=== PATIENT | female | born 1985 | race Caucasian/White ===

== ENCOUNTER 2020-02-13 13:04 | Day surgery (SDC) | payer BC, OTHER ==
[2020-02-13] MEDS ORDERED: diphenhydrAMINE 50 MG/ML SDV IVPUSH ONE (14:12)
[2020-02-13] MEDS ORDERED: fentaNYL 100 MCG/2 ML SDV IVPUSH ONE (14:12)
[2020-02-13] MEDS ORDERED: Ondansetron 4 MG/2 ML SDV IVPUSH ONE (14:13)
[2020-02-13] MEDS ORDERED: Dextrose 5%-0.9% NaCl 1,000 ML IV SCH (14:15)
--- NOTE | 2020-02-13 14:18 | EDM.PDOC ---
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 Patient has a complex past history. Patient weighed 318 pounds and underwent a gastric sleeve procedure 8 to 9 years ago. This was complicated by slippage of the sleeve producing intractable nausea and vomiting. 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 Subsequently those tumors were resected. With weight loss she required multiple surgeries to remove excess skin and tissue from her mid back end of abdominal plasty. She reports she is never been . She underwent tubal ligation at age 27 due to all the problems she was having with her pancreas. She underwent endometrial ablation 5 years ago. Things were fine up until 3 months ago when she developed sudden onset of severe lower abdominal pain similar to what she is experiencing today with a large gush and prolific bleeding for 2 hours and then it quit. She did not see a provider at that time. Yesterday she started to develop diffuse lower abdominal cramping pain with very minimal bleeding per vagina. She states that today the bleeding is bright red in color and still spotting. No shaded nausea without vomiting. Unable to eat. She is rocking back and forth on the bed due to the severity of the pain. She appreciates that there is a sense of urinary urgency without any dysuria and no relief of the pelvic pain with voiding or defecation. She is noticed no blood in her stool. Patient carries a diagnosis of chronic pancreatitis. She denies any recent alcohol use. Onset: Sudden Onset Date: 02/12/20 Onset Time: 09:00 (Symptoms started acutely yesterday morning with mild spotting per vagina but increased lower abdominal pain starting last night and persisting all night long.) Duration: Hour(s):, Constant, Getting Worse, Other (On colicky component to the pain.) Location: Reports: Abdomen (Suprapubic) Quality: Reports: Ache, Sharp, Stabbing, Other (Constant deep aching pain associated with) Severity: Severe (cramping pain similar to severe menstrual cramps. 10 of the 10) Improves with: Reports: None Worsens with: Reports: None Context: Reports: Other (Spontaneous occurrence). Denies: Activity, Exercise, Lifting, Sick Contact, Trauma Associated Symptoms: Reports: Loss of Appetite, Nausea/Vomiting. Denies: Confusion, Chest Pain, Rash, Seizure (Nausea without vomiting), Shortness of Breath, Syncope Treatments MAINTENANCE [employer]: Reports: NSAIDS (Ultram with no relief of pain.) Lower Abdomen Pain Score (Numeric/FACES): 10 - Related Data Allergies Allergy/AdvReac Type Severity Reaction Status Date / Time hydromorphone [From Dilaudid] Allergy Swelling Verified 02/13/20 13:16 Home Meds: Home Meds . [No Known Home Meds] 01/13/20 [History] Past Medical History HEENT History: Reports: None Other HEENT History: wears glasses Cardiovascular History: Reports: None Respiratory History: Reports: None Gastrointestinal History: Reports: None, Pancreatitis Other Gastrointestinal History: chronic pancreatitis--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: Endometrial Ablation : 0 Musculoskeletal History: Reports: None Neurological History: Reports: None Psychiatric History: Reports: None Endocrine/Metabolic History: Reports: None Hematologic History: Reports: None Immunologic History: Reports: None Oncologic (Cancer) History: Reports: None Dermatologic History: Reports: None - Infectious Disease History Infectious Disease History: Reports: Hepatitis A Other Infectious Disease History: Hx of Hep A, not currently positive - Past Surgical History Head Surgeries/Procedures: Reports: None HEENT Surgical History: Reports: Other (See Below) Other HEENT Surgeries/Procedures: tooth removed Cardiovascular Surgical History: Reports: None Respiratory Surgical History: Reports: None GI Surgical History: Reports: Appendectomy, Bariatric Procedure (Sleeve procedure with complications as the sleeve slipped upwards causing intractable nausea and vomiting requiring further surgery), Cholecystectomy Female Surgical History: Reports: Endometrial Ablation (Uncontrolled menorrhagia. Done 5 years ago 2014. It was done due to), Tubal Ligation (At age 27.) Endocrine Surgical History: Reports: None Neurological Surgical History: Reports: None Musculoskeletal Surgical History: Reports: None Oncologic Surgical History: Reports: None Dermatological Surgical History: Reports: None Other Dermatological Surgeries/Procedures: Patient has had multiple plastic surgeries i.e. abdominal plasty after significant weight loss and she has had resection of soft tissue and skin from upper mid back bilaterally. Social & Family History - Family History Family Medical History: No Pertinent Family History - Tobacco Use Tobacco Use Status *Q: Never Tobacco User Second Hand Smoke Exposure: No - Caffeine Use Caffeine Use: Reports: None - Alcohol Use Alcohol Use History: No - Recreational Drug Use Recreational Drug Use: No - Living Situation & Occupation Living situation: Reports: Occupation: Employed Social History Comment: Recently relocated to [place] a few days ago from [place]. ED ROS GENERAL - Review of Systems Review Of Systems: See Below Constitutional: Reports: Malaise, Weakness, Fatigue, Decreased Appetite. Denies: Fever, Chills HEENT: Reports: No Symptoms Respiratory: Reports: No Symptoms Cardiovascular: Reports: No Symptoms Endocrine: Reports: Fatigue GI/Abdominal: Reports: Abdominal Pain (See history of present illness), Constipation (Case and problems with constipation), Decreased Appetite, Nausea. Denies: Hematemesis, Hematochezia, Stool Incontinence, Vomiting : Reports: Frequency, Incontinence (Lost control of her bladder yesterday.), Urgency. Denies: Dysuria Musculoskeletal: Reports: No Symptoms Skin: Reports: No Symptoms Neurological: Reports: No Symptoms Psychiatric: Reports: No Symptoms Hematologic/Lymphatic: Reports: No Symptoms Immunologic: Reports: No Symptoms ED EXAM, GI/ABD - Physical Exam Exam: See Below Exam Limited By: No Limitations General Appearance: Alert, WD/WN, Moderate Distress, Other (Patient is rocking back and forth on the bed due to the severity of the pain. Temperature is 36.2 with a heart rate of 95 and sinus respiratory is 18. With O2 sats of 99% room air. BP is 131/84.) Eyes: Bilateral: Normal Appearance (No scleral icterus or blepharal pallor.) Throat/Mouth: Other Head: Atraumatic (Tongue is mildly dry.), Normocephalic Neck: Normal Inspection, Supple, Non-Tender, Full Range of Motion. No: Lymphadenopathy (L), Lymphadenopathy (R) Respiratory/Chest: No Respiratory Distress, Lungs Clear, Normal Breath Sounds, No Accessory Muscle Use Cardiovascular: Normal Peripheral Pulses, Regular Rate, Rhythm, No Edema, No Murmur, No Rub GI/Abdominal Exam: Soft, No Organomegaly, Pelvis Stable, Guarding, Rebound (Clinically has an acute abdomen.), Tender (Patient is markedly tender across both lower quadrants and suprapubically of the abdomen.), Abnormal Bowel Sounds (Bowel sounds appreciated.), Other Back Exam: Other (Has midline plastic surgical scars mid back bilaterally for reduction of excess skin and soft tissue post weight loss). No: CVA Tenderness (L), CVA Tenderness (R) Extremities: Normal Inspection, Normal Range of Motion, Non-Tender, No Pedal Edema Neurological: Alert, Oriented, CN II-XII Intact, Normal Cognition Psychiatric: Other Skin Exam: Warm, Dry (And appears to be in a good deal of pain.), Intact, Normal Color, No Rash Course - Vital Signs Last Recorded V/S: Last Vital Signs Temp 36.8 C 02/13/20 19:45 Pulse 62 02/13/20 19:45 Resp 10 L 02/13/20 19:45 BP 105/66 02/13/20 19:45 Pulse Ox 99 02/13/20 19:45 - Orders/Labs/Meds Orders: Active Orders 24 hr Category Date Time Status Patient Status Manage Transfer [TRANSFER] Routine ADT 02/13/20 19:51 Active Patient Status [ADT] Routine ADT 02/13/20 17:22 Active Communication Order [RC] ROUTINE Care 02/13/20 18:24 Active Cooling Warming Measures [RC] ASDIRECTED Care 02/13/20 18:24 Active Notify Provider [RC] ASDIRECTED Care 02/13/20 18:24 Active Oxygen Therapy [RC] ASDIRECTED Care 02/13/20 18:24 Active Pulse Oximetry [RC] ASDIRECTED Care 02/13/20 18:24 Active RT Aerosol Therapy [RC] ASDIRECTED Care 02/13/20 18:25 Active Vital Signs [RC] Q15M Care 02/13/20 18:24 Active Abdomen Pelvis w Cont [CT] Stat Exams 02/13/20 14:16 Taken Transvaginal Non OB [US] Stat Exams 02/13/20 14:14 Taken FREE T3 [REF] Stat Lab 02/13/20 15:00 Received PATIENT RETYPE [BBK] Routine Lab 02/13/20 15:50 Ordered Albuterol [Proventil Neb Soln] Med 02/13/20 18:25 Active 2.5 mg NEB ONETIME PRN Dextrose 5%-0.9% NaCl [Dextrose 5%-Normal Saline] 1,000 Med 02/13/20 14:15 Active ml IV ASDIRECTED HYDROmorphone [Dilaudid] Med 02/13/20 18:25 Active 1 mg IVPUSH ONETIME PRN Lactated Ringers [Ringers, Lactated] 1,000 ml Med 02/13/20 16:45 Active IV ASDIRECTED Metoclopramide [Reglan] Med 02/13/20 19:26 Active 10 mg IV ONETIME PRN Remove Patch Med 02/16/20 18:00 Once 1 ea TRDERM ONETIME ONE ePHEDrine [ePHEDrine sulfate] Med 02/13/20 18:24 Active 5 mg IVPUSH ASDIRECTED PRN fentaNYL [Sublimaze] Med 02/13/20 14:56 Active 50 mcg IVPUSH Q45M PRN fentaNYL [Sublimaze] Med 02/13/20 18:24 Active 50 mcg IVPUSH Q5M PRN Schedule Procedure [COMM] Urgent Oth 02/13/20 17:24 Ordered Medication Orders Albuterol (Proventil Neb Soln) 2.5 mg NEB ONETIME PRN PRN Reason: bronchodilation Ephedrine Sulfate (Ephedrine Sulfate) 5 mg IVPUSH ASDIRECTED PRN PRN Reason: Hypotension Fentanyl (Sublimaze) 50 mcg IVPUSH Q45M PRN PRN Reason: Pain Last Admin: 02/13/20 15:15 Dose: 50 mcg Documented by: MANUEL Fentanyl (Sublimaze) 50 mcg IVPUSH Q5M PRN PRN Reason: Pain Last Admin: 02/13/20 19:52 Dose: 50 mcg Documented by: YISEL Hydromorphone HCl (Dilaudid) 1 mg IVPUSH ONETIME PRN PRN Reason: Pain Dextrose/Sodium Chloride (Dextrose 5%-Normal Saline) 1,000 mls @ 150 mls/hr IV ASDIRECTED MARISABEL Last Admin: 02/13/20 15:01 Dose: 150 mls/hr Documented by: MANUEL Lactated Ringer's (Ringers, Lactated) 1,000 mls @ 150 mls/hr IV ASDIRECTED [facility] Last Admin: 02/13/20 16:56 Dose: 150 mls/hr Documented by: MANUEL Metoclopramide HCl (Reglan) 10 mg IV ONETIME PRN PRN Reason: Nausea/Vomiting Miscellaneous Information (Remove Patch) 1 ea TRDERM ONETIME ONE Stop: 02/16/20 18:01 Labs: Laboratory Tests 02/13/20 02/13/20 02/13/20 Range/Units 15:00 15:00 15:00 WBC 8.25 (3.98-10.04) K/mm3 RBC 5.05 (3.98-5.22) M/mm3 Hgb 13.0 (11.2-15.7) gm/dl Hct 40.6 (34.1-44.9) % MCV 80.4 (79.4-94.8) fl MCH 25.7 (25.6-32.2) pg MCHC 32.0 L (32.2-35.5) g/dl RDW Std Deviation 39.6 (36.4-46.3) fL Plt Count 233 (182-369) K/mm3 MPV 10.4 (9.4-12.3) fl Neut % (Auto) 78.8 H (34.0-71.1) % Lymph % (Auto) 13.7 L (19.3-51.7) % Gilchrist % (Auto) 6.5 (4.7-12.5) % Eos % (Auto) 0.7 (0.7-5.8) Baso % (Auto) 0.1 (0.1-1.2) % Neut # (Auto) 6.49 H (1.56-6.13) K/mm3 Lymph # (Auto) 1.13 L (1.18-3.74) K/mm3 Gilchrist # (Auto) 0.54 H (0.24-0.36) K/mm3 Eos # (Auto) 0.06 (0.04-0.36) K/mm3 Baso # (Auto) 0.01 (0.01-0.08) K/mm3 PT 10.5 (9.7-12.0) SECONDS INR 0.98 APTT 24.9 (21.7-31.4) SECONDS Sodium 141 (136-145) mEq/L Potassium 3.7 (3.5-5.1) mEq/L Chloride 105 (98-107) mEq/L Carbon Dioxide 27 (21-32) mEq/L Anion Gap 12.7 (5-15) BUN 15 (7-18) mg/dL Creatinine 0.9 (0.55-1.02) mg/dL Est Cr Clr Drug Dosing 91.18 mL/min Estimated GFR (MDRD) > 60 (>60) mL/min BUN/Creatinine Ratio 16.7 (14-18) Glucose 92 (74-106) mg/dL Calcium 9.3 (8.5-10.1) mg/dL Total Bilirubin 0.4 (0.2-1.0) mg/dL AST 9 L (15-37) U/L ALT 16 (14-59) U/L Alkaline Phosphatase 93 (46-116) U/L Total Protein 7.8 (6.4-8.2) g/dl Albumin 3.9 (3.4-5.0) g/dl Globulin 3.9 gm/dL Albumin/Globulin Ratio 1.0 (1-2) Lipase 199 (73-393) U/L Free T4 (0.76-1.46) ng/dL TSH 3rd Generation (0.358-3.74) uIU/mL HCG, Qual (NEGATIVE) Urine Color (Yellow) Urine Appearance (Clear) Urine pH (5.0-8.0) Ur Specific [place] (1.005-1.030) Urine Protein (Negative) Urine Glucose (UA) (Negative) Urine Ketones (Negative) Urine Occult Blood (Negative) Urine Nitrite (Negative) Urine Bilirubin (Negative) Urine Urobilinogen (0.2-1.0) Ur Leukocyte Esterase (Negative) Urine RBC (0-5) /hpf Urine WBC (0-5) /hpf Ur Squamous Epith Cells (0-5) /hpf Urine Bacteria (FEW) /hpf Urine Mucus (FEW) /hpf SARS-CoV-2 RNA (PRADIP) (NEGATIVE) Blood Type Gel Antibody Screen 02/13/20 02/13/20 02/13/20 Range/Units 15:00 15:00 15:00 WBC (3.98-10.04) K/mm3 RBC (3.98-5.22) M/mm3 Hgb (11.2-15.7) gm/dl Hct (34.1-44.9) % MCV (79.4-94.8) fl MCH (25.6-32.2) pg MCHC (32.2-35.5) g/dl RDW Std Deviation (36.4-46.3) fL Plt Count (182-369) K/mm3 MPV (9.4-12.3) fl Neut % (Auto) (34.0-71.1) % Lymph % (Auto) (19.3-51.7) % Gilchrist % (Auto) (4.7-12.5) % Eos % (Auto) (0.7-5.8) Baso % (Auto) (0.1-1.2) % Neut # (Auto) (1.56-6.13) K/mm3 Lymph # (Auto) (1.18-3.74) K/mm3 Gilchrist # (Auto) (0.24-0.36) K/mm3 Eos # (Auto) (0.04-0.36) K/mm3 Baso # (Auto) (0.01-0.08) K/mm3 PT (9.7-12.0) SECONDS INR APTT (21.7-31.4) SECONDS Sodium (136-145) mEq/L Potassium (3.5-5.1) mEq/L Chloride (98-107) mEq/L Carbon Dioxide (21-32) mEq/L Anion Gap (5-15) BUN (7-18) mg/dL Creatinine (0.55-1.02) mg/dL Est Cr Clr Drug Dosing mL/min Estimated GFR (MDRD) (>60) mL/min BUN/Creatinine Ratio (14-18) Glucose (74-106) mg/dL Calcium (8.5-10.1) mg/dL Total Bilirubin (0.2-1.0) mg/dL AST (15-37) U/L ALT (14-59) U/L Alkaline Phosphatase (46-116) U/L Total Protein (6.4-8.2) g/dl Albumin (3.4-5.0) g/dl Globulin gm/dL Albumin/Globulin Ratio (1-2) Lipase (73-393) U/L Free T4 (0.76-1.46) ng/dL TSH 3rd Generation 0.338 L (0.358-3.74) uIU/mL HCG, Qual Negative (NEGATIVE) Urine Color (Yellow) Urine Appearance (Clear) Urine pH (5.0-8.0) Ur Specific [place] (1.005-1.030) Urine Protein (Negative) Urine Glucose (UA) (Negative) Urine Ketones (Negative) Urine Occult Blood (Negative) Urine Nitrite (Negative) Urine Bilirubin (Negative) Urine Urobilinogen (0.2-1.0) Ur Leukocyte Esterase (Negative) Urine RBC (0-5) /hpf Urine WBC (0-5) /hpf Ur Squamous Epith Cells (0-5) /hpf Urine Bacteria (FEW) /hpf Urine Mucus (FEW) /hpf SARS-CoV-2 RNA (PRADIP) (NEGATIVE) Blood Type B POSITIVE Gel Antibody Screen Negative 02/13/20 02/13/20 02/13/20 Range/Units 15:00 16:44 16:44 WBC (3.98-10.04) K/mm3 RBC (3.98-5.22) M/mm3 Hgb (11.2-15.7) gm/dl Hct (34.1-44.9) % MCV (79.4-94.8) fl MCH (25.6-32.2) pg MCHC (32.2-35.5) g/dl RDW Std Deviation (36.4-46.3) fL Plt Count (182-369) K/mm3 MPV (9.4-12.3) fl Neut % (Auto) (34.0-71.1) % Lymph % (Auto) (19.3-51.7) % Gilchrist % (Auto) (4.7-12.5) % Eos % (Auto) (0.7-5.8) Baso % (Auto) (0.1-1.2) % Neut # (Auto) (1.56-6.13) K/mm3 Lymph # (Auto) (1.18-3.74) K/mm3 Gilchrist # (Auto) (0.24-0.36) K/mm3 Eos # (Auto) (0.04-0.36) K/mm3 Baso # (Auto) (0.01-0.08) K/mm3 PT (9.7-12.0) SECONDS INR APTT (21.7-31.4) SECONDS Sodium (136-145) mEq/L Potassium (3.5-5.1) mEq/L Chloride (98-107) mEq/L Carbon Dioxide (21-32) mEq/L Anion Gap (5-15) BUN (7-18) mg/dL Creatinine (0.55-1.02) mg/dL Est Cr Clr Drug Dosing mL/min Estimated GFR (MDRD) (>60) mL/min BUN/Creatinine Ratio (14-18) Glucose (74-106) mg/dL Calcium (8.5-10.1) mg/dL Total Bilirubin (0.2-1.0) mg/dL AST (15-37) U/L ALT (14-59) U/L Alkaline Phosphatase (46-116) U/L Total Protein (6.4-8.2) g/dl Albumin (3.4-5.0) g/dl Globulin gm/dL Albumin/Globulin Ratio (1-2) Lipase (73-393) U/L Free T4 1.15 (0.76-1.46) ng/dL TSH 3rd Generation (0.358-3.74) uIU/mL HCG, Qual (NEGATIVE) Urine Color Yellow (Yellow) Urine Appearance Clear (Clear) Urine pH 7.0 (5.0-8.0) Ur Specific [place] 1.015 (1.005-1.030) Urine Protein Negative (Negative) Urine Glucose (UA) Trace H (Negative) Urine Ketones Negative (Negative) Urine Occult Blood Trace-intact H (Negative) Urine Nitrite Negative (Negative) Urine Bilirubin Negative (Negative) Urine Urobilinogen 0.2 (0.2-1.0) Ur Leukocyte Esterase Negative (Negative) Urine RBC 0-5 (0-5) /hpf Urine WBC 0-5 (0-5) /hpf Ur Squamous Epith Cells 0-5 (0-5) /hpf Urine Bacteria Few (FEW) /hpf Urine Mucus Not seen (FEW) /hpf SARS-CoV-2 RNA (PRADIP) Negative (NEGATIVE) Blood Type Gel Antibody Screen Meds: Medications Generic Name Dose Route Start Last Admin Trade Name Freq PRN Reason Stop Dose Admin Albuterol 2.5 mg 02/13/20 18:25 Proventil Neb Soln NEB ONETIME PRN bronchodilation Ephedrine Sulfate 5 mg 02/13/20 18:24 Ephedrine Sulfate IVPUSH ASDIRECTED PRN Hypotension Fentanyl 50 mcg 02/13/20 14:56 02/13/20 15:15 Sublimaze IVPUSH 50 mcg Q45M PRN Administration Pain Fentanyl 50 mcg 02/13/20 18:24 02/13/20 19:52 Sublimaze IVPUSH 50 mcg Q5M PRN Administration Pain Hydromorphone HCl 1 mg 02/13/20 18:25 Dilaudid IVPUSH ONETIME PRN Pain Dextrose/Sodium Chloride 1,000 mls @ 150 mls/hr 02/13/20 14:15 02/13/20 15:01 Dextrose 5%-Normal Saline IV 150 mls/hr ASDIRECTED MARISABEL Administration Lactated Ringer's 1,000 mls @ 150 mls/hr 02/13/20 16:45 02/13/20 16:56 Ringers, Lactated IV 150 mls/hr ASDIRECTED MARISABEL Administration Metoclopramide HCl 10 mg 02/13/20 19:26 Reglan IV ONETIME PRN Nausea/Vomiting Miscellaneous Information 1 ea 02/16/20 18:00 Remove Patch TRDERM 02/16/20 18:01 ONETIME ONE Discontinued Medications Generic Name Dose Route Start Last Admin Trade Name Freq PRN Reason Stop Dose Admin Bupivacaine HCl Confirm 02/13/20 17:16 02/13/20 18:30 Marcaine 0.5% Administered 02/13/20 17:17 6 ml Dose Administration 30 ml .ROUTE .STK-MED ONE Dexamethasone Confirm 02/13/20 17:25 Dexamethasone Administered 02/13/20 17:26 Dose 20 mg .ROUTE .STK-MED ONE Diphenhydramine HCl 25 mg 02/13/20 14:12 02/13/20 15:01 Benadryl IVPUSH 02/13/20 14:13 25 mg ONETIME ONE Administration Diphenhydramine HCl Confirm 02/13/20 17:49 Benadryl Administered 02/13/20 17:50 Dose 50 mg .ROUTE .STK-MED ONE Fentanyl 50 mcg 02/13/20 14:12 02/13/20 15:01 Sublimaze IVPUSH 02/13/20 14:13 50 mcg ONETIME ONE Administration Fentanyl Confirm 02/13/20 17:26 Sublimaze Administered 02/13/20 17:27 Dose 250 mcg .ROUTE .STK-MED ONE Fentanyl Confirm 02/13/20 18:45 Sublimaze Administered 02/13/20 18:46 Dose 100 mcg .ROUTE .STK-MED ONE Glycopyrrolate Confirm 02/13/20 18:42 Robinul Administered 02/13/20 18:43 Dose 0.8 mg .ROUTE .STK-MED ONE Glycopyrrolate Confirm 02/13/20 19:01 Robinul Administered 02/13/20 19:02 Dose 0.4 mg .ROUTE .STK-MED ONE Haloperidol Lactate 1 mg 02/13/20 19:26 Haldol IVPUSH 02/13/20 19:27 ONETIME ONE Hydromorphone HCl 0.5 mg 02/13/20 16:36 02/13/20 16:40 Dilaudid IVPUSH 02/13/20 16:37 0.5 mg ONETIME ONE Administration Hydromorphone HCl Confirm 02/13/20 17:25 Dilaudid Administered 02/13/20 17:26 Dose 0.5 mg .ROUTE .STK-MED ONE Lidocaine HCl Confirm 02/13/20 17:25 Xylocaine-Mpf 1% Administered 02/13/20 17:26 Dose 4 mls @ as directed .ROUTE .STK-MED ONE Lactated Ringer's Confirm 02/13/20 17:25 Ringers, Lactated Administered 02/13/20 17:26 Dose 2,000 mls @ as directed .ROUTE .STK-MED ONE Iopamidol 100 ml 02/13/20 16:26 02/13/20 16:26 Isovue-300 (61%) IVPUSH 02/13/20 16:27 100 ml ONETIME ONE Administration Ketorolac Tromethamine Confirm 02/13/20 17:25 Toradol Administered 02/13/20 17:26 Dose 30 mg .ROUTE .STK-MED ONE Meperidine HCl 25 mg 02/13/20 19:37 02/13/20 19:44 Meperidine IVPUSH 02/13/20 19:38 25 mg ONETIME STA Administration Midazolam HCl Confirm 02/13/20 17:26 Versed 1 Mg/Ml Administered 02/13/20 17:27 Dose 2 mg .ROUTE .STK-MED ONE Miscellaneous Medication 0 mg 12/26/20 18:24 Phenylephrine 1 Mg/10 Ml-Ns IVPUSH 02/13/20 18:25 ONETIME ONE Neostigmine Methylsulfate Confirm 02/13/20 18:42 Neostigmine Methylsulfate Administered 02/13/20 18:43 Dose 5 mg .ROUTE .STK-MED ONE Ondansetron HCl 4 mg 02/13/20 14:13 02/13/20 15:01 Zofran IVPUSH 02/13/20 14:14 4 mg ONETIME ONE Administration Ondansetron HCl Confirm 02/13/20 17:25 Zofran Administered 02/13/20 17:26 Dose 4 mg .ROUTE .STK-MED ONE Propofol Confirm 02/13/20 17:25 Diprivan 20 Ml Administered 02/13/20 17:26 Dose 200 mg .ROUTE .STK-MED ONE Rocuronium [place] Confirm 02/13/20 17:25 Zemuron Administered 02/13/20 17:26 Dose 50 mg .ROUTE .STK-MED ONE Scopolamine 1.5 mg 02/13/20 17:39 02/13/20 17:44 Transderm-Scop TOP 02/13/20 17:40 1.5 mg ONETIME ONE Administration Scopolamine 1.5 mg 02/13/20 17:40 Transderm-Scop TRDERM 02/13/20 17:41 ONETIME ONE Sodium Chloride 10 ml 02/13/20 16:26 02/13/20 16:26 Saline Flush FLUSH 02/13/20 16:27 10 ml ONETIME ONE Administration - Radiology Interpretation Free Text/Narrative:: 34-year-old female presents to the ED with acute lower abdominal pain starting last evening. She states she has had some spotting per vagina yesterday morning upon awakening. Of note the patient has had previous endometrial ablation carried out 5 years ago. 3 months ago she developed acute onset of severe lower abdominal pain similar to what she is experiencing today. She then had a bout of menorrhagia lasting about 2 hours and then it quit. She did not seek [employer] consultation. Today she states the bleeding per vagina is more spotting but bright red in color. There is a feeling or sense of urinary urgency without relief of pain or terminal dysuria. On examination bowel sounds are few and far between. She is extremely tender suprapubically in both lower quadrants suggesting acute abdomen. Patient has a history of chronic pancreatitis. However this pain appears to be gynecological in origin. Plan she will have IV started D5 normal saline at 250 mils per hour. Given fentanyl 50 mcg IV with Zofran 4 mg IV and Benadryl 25 mg IV. She states her face swelled up after receiving Dilaudid in the past. She is currently not taking any medications. Plan will be to proceed with routine labs including a serum lipase and CRP and a urinalysis. A beta-hCG was also ordered. Patient will have a transvaginal ult rasound performed to look at the endometrial stripe and whether or not the ovaries are involved in acute onset of severe lower abdominal cramping pain. She will then have CT of the abdomen pelvis with IV contrast only. - Re-Assessments/Exams Free Text/Narrative Re-Assessment/Exam: 02/13/20 15:15 Hematology reveals a normal white count at 8.25 with 78.8% n eutrophils on the auto differential. Hemoglobin is 13.0 with hematocrit of 40.6. Platelet count is 233,000. Beta-hCG is negative. 02/13/20 15:47 Sodium is 141 with a potassium of 3.7. Chloride is 105 with a bicarb of 27. Anion gap is 12.7. BUN is 15 with a creatinine of 0.9. GFR is greater than 60. Glucose is 92 with a calcium of 9.3. Liver function is normal. Total protein 7.8 with an albumin fraction of 3.9. Lipase is normal at 199. TSH is 0.338 which is slightly low. A free T4 and free T3 will be ordered. 02/13/20 16:24 Transvaginal ultrasound has been completed. Blood flow was noted to both ovaries. No evidence of ovarian torsion. Uterus measures 6.8 x 4.5 x 3.6 cm. No intrauterine masses are evident. Endometrium measures 7 mm. In the right adnexa there is a tubular prominence noted in the right adnexal region which may be consistent with salpingitis. Clinical correlation is required. Right ovary measures 3.0 x 2.8 x 2.4 cm. Bilateral small hemorrhagic ovarian cysts are present. Right ovarian cyst measures 1.3 x 1.3 x 1.5 cm. The left adnexa shows the ovary to be 3.3 x 2.4 x 2.5 cm. Left ovarian cyst measures 1.6 x 1.5 x 1.6 cm. No free fluid is appreciated in the intraperitoneal space. CT of the abdomen pelvis has been completed with IV contrast only. Visualized portions of the lung bases appear clear. The liver appears normal with no intraductal dilatation. Previous cholecystectomy appreciated with bib in the gallbladder fossa. Pancreas appears normal. Spleen appears normal. There is mildly increased stool throughout the colon particularly hepatic flexure. No evidence of bowel obstruction. There appears to be some thickening of the adjacent small bowel wall within the upper pelvis consistent with an enteritis. Postoperative changes noted within the cecal region. Appendix is not seen. Both kidneys appear to be normal with no hydronephrosis or ureteric obstruction. There is a small amount of free pelvic fluid present. Abdominal aorta is normal. No enlarged lymph nodes evident. Urinary bladder appears unremarkable. There is some haziness in the right adnexa adjacent to the right ovary. There is enlargement of the right salpinx which may be consistent with a salpingitis. Mild inflammatory changes are appreciated as noted. Postoperative changes noted within the epigastric region where she had a gastric sleeve procedure. The uterus otherwise appears normal. Bilateral adnexal cysts appreciated more evident on the ultrasound. Bilateral breast implants are appreciated. 02/13/20 16:50 Case discussed with on-call [employer] Dr. Stephanie Fregoso and she will see the patient in the ED. She is asked me to call in the OR crew since she has a defined pathology on imaging in the right adnexa and clinically has an acute abdomen. It appears to be a problem with the right fallopian tube either infection or torsion to cause her to have such severe pain. Updated coronavirus screen will be obtained. 02/13/20 17:17 Dr. Fregoso has seen and assessed the patient in the ED with plan to take her to the OR for exploratory laparoscopy. COVID-19 screen is negative. Departure - Departure Time of Disposition: 17:30 Disposition: DC/Tfer to Critical Access [facility] Condition: Fair Clinical Impression: Acute abdominal complaint, Right adnexal tenderness - Discharge Information *PRESCRIPTION DRUG MONITORING PROGRAM REVIEWED*: Not Applicable *COPY OF PRESCRIPTION DRUG MONITORING REPORT IN PATIENT DELFINA: Not Applicable Sepsis Event Note (ED) - Evaluation Sepsis Screening Result: No Definite Risk - Focused Exam Vital Signs: Vital Signs Temp Pulse Resp BP Pulse Ox 12/26/20 19:45 36.8 C 62 10 L 105/66 99 02/13/20 19:30 36.6 C 76 13 120/73 94 L 02/13/20 19:18 36.7 C 119 H 10 L 120/92 H 95 02/13/20 17:38 70 120/70 02/13/20 13:13 36.2 C 95 18 131/84 99 - My Orders Last 24 Hours: My Active Orders 02/13/20 14:14 Transvaginal Non OB [US] Stat 02/13/20 14:15 Dextrose 5%-0.9% NaCl [Dextrose 5%-Normal Saline] 1,000 ml IV ASDIRECTED 02/13/20 14:16 Abdomen Pelvis w Cont [CT] Stat 02/13/20 14:56 fentaNYL [Sublimaze] 50 mcg IVPUSH Q45M PRN 02/13/20 15:00 FREE T3 [REF] Stat 02/13/20 15:50 PATIENT RETYPE [BBK] Routine 02/13/20 16:45 Lactated Ringers [Ringers, Lactated] 1,000 ml IV ASDIRECTED 02/13/20 17:24 Schedule Procedure [COMM] Urgent - Assessment/Plan Last 24 Hours: My Active Orders 02/13/20 14:14 Transvaginal Non OB [US] Stat 02/13/20 14:15 Dextrose 5%-0.9% NaCl [Dextrose 5%-Normal Saline] 1,000 ml IV ASDIRECTED 02/13/20 14:16 Abdomen Pelvis w Cont [CT] Stat 02/13/20 14:56 fentaNYL [Sublimaze] 50 mcg IVPUSH Q45M PRN 02/13/20 15:00 FREE T3 [REF] Stat 02/13/20 15:50 PATIENT RETYPE [BBK] Routine 02/13/20 16:45 Lactated Ringers [Ringers, Lactated] 1,000 ml IV ASDIRECTED 02/13/20 17:24 Schedule Procedure [COMM] Urgent
[2020-02-13] MEDS ORDERED: fentaNYL 100 MCG/2 ML SDV IVPUSH PRN (14:56)
[2020-02-13] MEDS ORDERED: Iopamidol 612 MG/ML 100 ML Bottle IVPUSH ONE (16:26)
[2020-02-13] MEDS ORDERED: Sodium Chloride 0.9% 10 ML Syringe FLUSH ONE (16:26)
[2020-02-13] MEDS ORDERED: HYDROmorphone 0.5 MG/0.5 ML Syringe IVPUSH ONE (16:36)
[2020-02-13] MEDS ORDERED: Lactated Ringers 1,000 ML IV SCH (16:45)
--- NOTE | 2020-02-13 17:10 | PCM.PREANE ---
Preanesthetic Assessment - Procedure Proposed Procedure: Diagnostic Laparoscopy - Anesthesia/Transfusion/Family Hx Anesthesia History: Prior Anesthesia Reaction Type of Anesthesia Reaction: Excessive Nausea/Vomiting, Other (see below) (itching/face swelling) Family History of Anesthesia Reaction: No Transfusion History: No Prior Transfusion(s) Intubation History: Unknown - Review of Systems General: No Symptoms, Weakness, Fatigue, Malaise Pulmonary: No Symptoms (ETOH: rarely) Cardiovascular: No Symptoms Gastrointestinal: No Symptoms (History of gastric sleeve surgery/hiatal hernia), Abdominal Pain (9/10), Decreased Appetite, Diarrhea, Nausea, Vomiting Neurological: No Symptoms (Vertigo), Headache Other: Reports: None (History of chronic pancreatitis, History of Hepatitis A(4)), Easy Bruising - Physical Assessment NPO Status Date: 02/13/20 NPO Status Time: 08:30 Vital Signs: Last Vital Signs Temp 36.2 C 02/13/20 13:13 Pulse 95 02/13/20 13:13 Resp 18 02/13/20 13:13 BP 131/84 02/13/20 13:13 Pulse Ox 99 02/13/20 13:13 Height: 1.75 m Weight: 89.811 kg ASA Class: 3E Mental Status: Alert & Oriented x3 Airway Class: Mallampati = 3 Dentition: Reports: Normal Dentition, Caries Thyro-Mental Finger Breadths: 3 Mouth Opening Finger Breadths: 3 ROM/Head Extension: Full Lungs: Clear to Auscultation, Normal Respiratory Effort Cardiovascular: Regular Rate, Regular Rhythm, No Murmurs - Lab Values: Laboratory Last Values WBC 8.25 K/mm3 (3.98-10.04) 02/13/20 15:00 RBC 5.05 M/mm3 (3.98-5.22) 02/13/20 15:00 Hgb 13.0 gm/dl (11.2-15.7) 02/13/20 15:00 Hct 40.6 % (34.1-44.9) 02/13/20 15:00 MCV 80.4 fl (79.4-94.8) 02/13/20 15:00 MCH 25.7 pg (25.6-32.2) 02/13/20 15:00 MCHC 32.0 g/dl (32.2-35.5) L 02/13/20 15:00 RDW Std Deviation 39.6 fL (36.4-46.3) 02/13/20 15:00 Plt Count 233 K/mm3 (182-369) 02/13/20 15:00 MPV 10.4 fl (9.4-12.3) 02/13/20 15:00 Neut % (Auto) 78.8 % (34.0-71.1) H 02/13/20 15:00 Lymph % (Auto) 13.7 % (19.3-51.7) L 02/13/20 15:00 [place] % (Auto) 6.5 % (4.7-12.5) 02/13/20 15:00 Eos % (Auto) 0.7 (0.7-5.8) 02/13/20 15:00 Baso % (Auto) 0.1 % (0.1-1.2) 02/13/20 15:00 Neut # (Auto) 6.49 K/mm3 (1.56-6.13) H 02/13/20 15:00 Lymph # (Auto) 1.13 K/mm3 (1.18-3.74) L 02/13/20 15:00 [place] # (Auto) 0.54 K/mm3 (0.24-0.36) H 02/13/20 15:00 Eos # (Auto) 0.06 K/mm3 (0.04-0.36) 02/13/20 15:00 Baso # (Auto) 0.01 K/mm3 (0.01-0.08) 02/13/20 15:00 PT 10.5 SECONDS (9.7-12.0) 02/13/20 15:00 INR 0.98 02/13/20 15:00 APTT 24.9 SECONDS (21.7-31.4) 02/13/20 15:00 Sodium 141 mEq/L (136-145) 02/13/20 15:00 Potassium 3.7 mEq/L (3.5-5.1) 02/13/20 15:00 Chloride 105 mEq/L (98-107) 02/13/20 15:00 Carbon Dioxide 27 mEq/L (21-32) 02/13/20 15:00 Anion Gap 12.7 (5-15) 02/13/20 15:00 BUN 15 mg/dL (7-18) 02/13/20 15:00 Creatinine 0.9 mg/dL (0.55-1.02) 02/13/20 15:00 Est Cr Clr Drug Dosing 91.18 mL/min 02/13/20 15:00 Estimated GFR (MDRD) > 60 mL/min (>60) 02/13/20 15:00 BUN/Creatinine Ratio 16.7 (14-18) 02/13/20 15:00 Glucose 92 mg/dL (74-106) 02/13/20 15:00 Calcium 9.3 mg/dL (8.5-10.1) 02/13/20 15:00 Total Bilirubin 0.4 mg/dL (0.2-1.0) 02/13/20 15:00 AST 9 U/L (15-37) L 02/13/20 15:00 ALT 16 U/L (14-59) 02/13/20 15:00 Alkaline Phosphatase 93 U/L (46-116) 02/13/20 15:00 Total Protein 7.8 g/dl (6.4-8.2) 02/13/20 15:00 Albumin 3.9 g/dl (3.4-5.0) 02/13/20 15:00 Globulin 3.9 gm/dL 02/13/20 15:00 Albumin/Globulin Ratio 1.0 (1-2) 02/13/20 15:00 Lipase 199 U/L (73-393) 02/13/20 15:00 Free T4 1.15 ng/dL (0.76-1.46) 02/13/20 15:00 TSH 3rd Generation 0.338 uIU/mL (0.358-3.74) L 02/13/20 15:00 HCG, Qual Negative (NEGATIVE) 02/13/20 15:00 Blood Type B POSITIVE 02/13/20 15:00 Gel Antibody Screen Negative 02/13/20 15:00 Above labs reviewed and noted and within acceptable ranges to proceed with procedure. - Allergies Allergies/Adverse Reactions: Allergies Allergy/AdvReac Type Severity Reaction Status Date / Time hydromorphone [From Dilaudid] Allergy Swelling Verified 02/13/20 13:16 - Anesthesia Plan Pre-Op Medication Ordered: None - Acknowledgements Anesthesia Type Planned: General Anesthesia Pt an Appropriate Candidate for the Planned Anesthesia: Yes Alternatives and Risks of Anesthesia Discussed w Pt/Guardian: Yes Pt/Guardian Understands and Agrees with Anesthesia Plan: Yes PreAnesthesia Questionnaire HEENT History: Reports: None Other HEENT History: wears glasses Cardiovascular History: Reports: None Respiratory History: Reports: None Gastrointestinal History: Reports: None, Pancreatitis Other Gastrointestinal History: chronic pancreatitis--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 Musculoskeletal History: Reports: None Neurological History: Reports: None Psychiatric History: Reports: None Endocrine/Metabolic History: Reports: None Hematologic History: Reports: None Immunologic History: Reports: None Oncologic (Cancer) History: Reports: None Dermatologic History: Reports: None - Infectious Disease History Infectious Disease History: Reports: Hepatitis A Other Infectious Disease History: Hx of Hep A, not currently positive - Past Surgical History Head Surgeries/Procedures: Reports: None HEENT Surgical History: Reports: Other (See Below) Other HEENT Surgeries/Procedures: tooth removed Cardiovascular Surgical History: Reports: None Respiratory Surgical History: Reports: None GI Surgical History: Reports: Appendectomy, Bariatric Procedure (Sleeve procedure with complications as the sleeve slipped upwards causing intractable nausea and vomiting requiring further surgery), Cholecystectomy Female Surgical History: Reports: Endometrial Ablation (Uncontrolled menorrhagia. Done 5 years ago 2014. It was done due to), Tubal Ligation (At age 27.) Endocrine Surgical History: Reports: None Neurological Surgical History: Reports: None Musculoskeletal Surgical History: Reports: None Oncologic Surgical History: Reports: None Dermatological Surgical History: Reports: None Other Dermatological Surgeries/Procedures: Patient has had multiple plastic surgeries i.e. abdominal plasty after significant weight loss and she has had resection of soft tissue and skin from upper mid back bilaterally. - SUBSTANCE USE Tobacco Use Status *Q: Never Tobacco User Second Hand Smoke Exposure: No Recreational Drug Use History: No - HOME MEDS Home Medications: Home Meds . [No Known Home Meds] 01/13/20 [History] - CURRENT (IN HOUSE) MEDS Current Meds: Current Medications Fentanyl (Sublimaze) 50 mcg IVPUSH Q45M PRN PRN Reason: Pain Last Admin: 02/13/20 15:15 Dose: 50 mcg Documented by: Dextrose/Sodium Chloride (Dextrose 5%-Normal Saline) 1,000 mls @ 150 mls/hr IV ASDIRECTED [facility] Last Admin: 02/13/20 15:01 Dose: 150 mls/hr Documented by: Lactated Ringer's (Ringers, Lactated) 1,000 mls @ 150 mls/hr IV ASDIRECTED [facility] Last Admin: 02/13/20 16:56 Dose: 150 mls/hr Documented by: Discontinued Medications Diphenhydramine HCl (Benadryl) 25 mg IVPUSH ONETIME ONE Stop: 02/13/20 14:13 Last Admin: 02/13/20 15:01 Dose: 25 mg Documented by: Fentanyl (Sublimaze) 50 mcg IVPUSH ONETIME ONE Stop: 02/13/20 14:13 Last Admin: 02/13/20 15:01 Dose: 50 mcg Documented by: Hydromorphone HCl (Dilaudid) 0.5 mg IVPUSH ONETIME ONE Stop: 02/13/20 16:37 Last Admin: 02/13/20 16:40 Dose: 0.5 mg Documented by: Iopamidol (Isovue-300 (61%)) 100 ml IVPUSH ONETIME ONE Stop: 02/13/20 16:27 Last Admin: 02/13/20 16:26 Dose: 100 ml Documented by: Ondansetron HCl (Zofran) 4 mg IVPUSH ONETIME ONE Stop: 02/13/20 14:14 Last Admin: 02/13/20 15:01 Dose: 4 mg Documented by: Sodium Chloride (Saline Flush) 10 ml FLUSH ONETIME ONE Stop: 02/13/20 16:27 Last Admin: 02/13/20 16:26 Dose: 10 ml Documented by:
[2020-02-13] MEDS ORDERED: Bupivacaine 0.5% 30 ML SDV ONE (17:16)
[2020-02-13] MEDS ORDERED: HYDROmorphone 0.5 MG/0.5 ML Syringe ONE (17:25)
[2020-02-13] MEDS ORDERED: Lidocaine 1% 4 ML ONE (17:25)
[2020-02-13] MEDS ORDERED: Dexamethasone 4 MG/ML 5 ML MDV ONE (17:25)
[2020-02-13] MEDS ORDERED: Ketorolac 30 MG/ML SDV ONE (17:25)
[2020-02-13] MEDS ORDERED: Lactated Ringers 2,000 ML ONE (17:25)
[2020-02-13] MEDS ORDERED: Propofol 200 MG/20 ML SDV ONE (17:25)
[2020-02-13] MEDS ORDERED: Ondansetron 4 MG/2 ML SDV ONE (17:25)
[2020-02-13] MEDS ORDERED: Rocuronium 50 MG/5 ML Vial ONE (17:25)
[2020-02-13] MEDS ORDERED: fentaNYL 250 MCG/5 ML SDV ONE (17:26)
[2020-02-13] MEDS ORDERED: Midazolam 1 MG/ML 2 ML SDV ONE (17:26)
--- NOTE | 2020-02-13 17:29 | PCM.HP.2 ---
H&P History of Present Illness - General Date of Service: 02/13/20 Source of Information: Patient History Limitations: Reports: No Limitations - History of Present Illness Initial Comments - Free Text/Narative: 34 year old G0 presents with abdominal pain. Significant medical history can be reviewed in Dr. Anton's note. Today had a gush of blood and then severe pain. No relief with voiding or BM Had an endometrial ablation in the past and tubal ligation. Significant acute abdomen today with rebound and ultrasound demonstrating fluid appearing like blood in the right tube. Improves with: Reports: None Lower Abdomen Pain Score (Numeric/FACES): 10 - Related Data Allergies/Adverse Reactions: Allergies Allergy/AdvReac Type Severity Reaction Status Date / Time hydromorphone [From Dilaudid] Allergy Swelling Verified 02/13/20 13:16 Home Medications: Home Meds . [No Known Home Meds] 01/13/20 [History] Past Medical History HEENT History: Reports: None Other HEENT History: wears glasses Cardiovascular History: Reports: None Respiratory History: Reports: None Gastrointestinal History: Reports: None, Pancreatitis Other Gastrointestinal History: chronic pancreatitis--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 Musculoskeletal History: Reports: None Neurological History: Reports: None Psychiatric History: Reports: None Endocrine/Metabolic History: Reports: None Hematologic History: Reports: None Immunologic History: Reports: None Oncologic (Cancer) History: Reports: None Dermatologic History: Reports: None - Infectious Disease History Infectious Disease History: Reports: Hepatitis A Other Infectious Disease History: Hx of Hep A, not currently positive - Past Surgical History Head Surgeries/Procedures: Reports: None HEENT Surgical History: Reports: Other (See Below) Other HEENT Surgeries/Procedures: tooth removed Cardiovascular Surgical History: Reports: None Respiratory Surgical History: Reports: None GI Surgical History: Reports: Appendectomy, Bariatric Procedure (Sleeve procedure with complications as the sleeve slipped upwards causing intractable nausea and vomiting requiring further surgery), Cholecystectomy Female Surgical History: Reports: Endometrial Ablation (Uncontrolled menorrhagia. Done 5 years ago 2014. It was done due to), Tubal Ligation (At age 27.) Endocrine Surgical History: Reports: None Neurological Surgical History: Reports: None Musculoskeletal Surgical History: Reports: None Oncologic Surgical History: Reports: None Dermatological Surgical History: Reports: None Other Dermatological Surgeries/Procedures: Patient has had multiple plastic surgeries i.e. abdominal plasty after significant weight loss and she has had resection of soft tissue and skin from upper mid back bilaterally. Social & Family History - Family History Family Medical History: No Pertinent Family History - Tobacco Use Tobacco Use Status *Q: Never Tobacco User Second Hand Smoke Exposure: No - Caffeine Use Caffeine Use: Reports: None - Recreational Drug Use Recreational Drug Use: No - Living Situation & Occupation Living situation: Reports: Occupation: Employed H&P Review of Systems - Review of Systems: Review Of Systems: See Below General: Reports: No Symptoms. Denies: Fever, Chills HEENT: Reports: No Symptoms Pulmonary: Reports: No Symptoms. Denies: Shortness of Breath Cardiovascular: Reports: No Symptoms Gastrointestinal: Reports: No Symptoms Genitourinary: Reports: Flank Pain. Denies: Dysuria Musculoskeletal: Reports: No Symptoms Skin: Reports: No Symptoms Psychiatric: Reports: No Symptoms Neurological: Reports: No Symptoms Hematologic/Lymphatic: Reports: No Symptoms Immunologic: Reports: No Symptoms Exam - Exam Exam: See Below - Vital Signs Vital Signs: Last Vital Signs Temp 36.2 C 02/13/20 13:13 Pulse 95 02/13/20 13:13 Resp 18 02/13/20 13:13 BP 131/84 02/13/20 13:13 Pulse Ox 99 02/13/20 13:13 Weight: 89.811 kg - Exam General: Alert, Oriented, 4 HEENT: PERRLA, Hearing Intact, Mucosa Moist & [place], Nares Patent, Normal Nasal Septum, Posterior Pharynx Clear, Conjunctiva Clear, EOMI, EACs Clear, TMs Clear Lungs: Clear to Auscultation, Normal Respiratory Effort Cardiovascular: Regular Rate, Regular Rhythm GI/Abdominal Exam: Normal Bowel Sounds, Guarding, Rebound, Tender (Female) Exam: Normal External Exam Skin: Warm, Dry, Intact Neurological: Cranial Nerves Intact, Reflexes Equal Bilateral Neuro Extensive - Mental Status: Alert, Oriented x3, Normal Mood/Affect, Normal Cognition - Patient Data Lab Results Last 24 hrs: Laboratory Results - last 24 hr 02/13/20 02/13/20 02/13/20 Range/Units 15:00 15:00 15:00 WBC 8.25 (3.98-10.04) K/mm3 RBC 5.05 (3.98-5.22) M/mm3 Hgb 13.0 (11.2-15.7) gm/dl Hct 40.6 (34.1-44.9) % MCV 80.4 (79.4-94.8) fl MCH 25.7 (25.6-32.2) pg MCHC 32.0 L (32.2-35.5) g/dl RDW Std Deviation 39.6 (36.4-46.3) fL Plt Count 233 (182-369) K/mm3 MPV 10.4 (9.4-12.3) fl Neut % (Auto) 78.8 H (34.0-71.1) % Lymph % (Auto) 13.7 L (19.3-51.7) % [place] % (Auto) 6.5 (4.7-12.5) % Eos % (Auto) 0.7 (0.7-5.8) Baso % (Auto) 0.1 (0.1-1.2) % Neut # (Auto) 6.49 H (1.56-6.13) K/mm3 Lymph # (Auto) 1.13 L (1.18-3.74) K/mm3 [place] # (Auto) 0.54 H (0.24-0.36) K/mm3 Eos # (Auto) 0.06 (0.04-0.36) K/mm3 Baso # (Auto) 0.01 (0.01-0.08) K/mm3 PT 10.5 (9.7-12.0) SECONDS INR 0.98 APTT 24.9 (21.7-31.4) SECONDS Sodium 141 (136-145) mEq/L Potassium 3.7 (3.5-5.1) mEq/L Chloride 105 (98-107) mEq/L Carbon Dioxide 27 (21-32) mEq/L Anion Gap 12.7 (5-15) BUN 15 (7-18) mg/dL Creatinine 0.9 (0.55-1.02) mg/dL Est Cr Clr Drug Dosing 91.18 mL/min Estimated GFR (MDRD) > 60 (>60) mL/min BUN/Creatinine Ratio 16.7 (14-18) Glucose 92 (74-106) mg/dL Calcium 9.3 (8.5-10.1) mg/dL Total Bilirubin 0.4 (0.2-1.0) mg/dL AST 9 L (15-37) U/L ALT 16 (14-59) U/L Alkaline Phosphatase 93 (46-116) U/L Total Protein 7.8 (6.4-8.2) g/dl Albumin 3.9 (3.4-5.0) g/dl Globulin 3.9 gm/dL Albumin/Globulin Ratio 1.0 (1-2) Lipase 199 (73-393) U/L Free T4 (0.76-1.46) ng/dL TSH 3rd Generation (0.358-3.74) uIU/mL HCG, Qual (NEGATIVE) Urine Color (Yellow) Urine Appearance (Clear) Urine pH (5.0-8.0) Ur Specific [place] (1.005-1.030) Urine Protein (Negative) Urine Glucose (UA) (Negative) Urine Ketones (Negative) Urine Occult Blood (Negative) Urine Nitrite (Negative) Urine Bilirubin (Negative) Urine Urobilinogen (0.2-1.0) Ur Leukocyte Esterase (Negative) Urine RBC (0-5) /hpf Urine WBC (0-5) /hpf Ur Squamous Epith Cells (0-5) /hpf Urine Bacteria (FEW) /hpf Urine Mucus (FEW) /hpf Blood Type Gel Antibody Screen 02/13/20 02/13/20 02/13/20 Range/Units 15:00 15:00 15:00 WBC (3.98-10.04) K/mm3 RBC (3.98-5.22) M/mm3 Hgb (11.2-15.7) gm/dl Hct (34.1-44.9) % MCV (79.4-94.8) fl MCH (25.6-32.2) pg MCHC (32.2-35.5) g/dl RDW Std Deviation (36.4-46.3) fL Plt Count (182-369) K/mm3 MPV (9.4-12.3) fl Neut % (Auto) (34.0-71.1) % Lymph % (Auto) (19.3-51.7) % [place] % (Auto) (4.7-12.5) % Eos % (Auto) (0.7-5.8) Baso % (Auto) (0.1-1.2) % Neut # (Auto) (1.56-6.13) K/mm3 Lymph # (Auto) (1.18-3.74) K/mm3 [place] # (Auto) (0.24-0.36) K/mm3 Eos # (Auto) (0.04-0.36) K/mm3 Baso # (Auto) (0.01-0.08) K/mm3 PT (9.7-12.0) SECONDS INR APTT (21.7-31.4) SECONDS Sodium (136-145) mEq/L Potassium (3.5-5.1) mEq/L Chloride (98-107) mEq/L Carbon Dioxide (21-32) mEq/L Anion Gap (5-15) BUN (7-18) mg/dL Creatinine (0.55-1.02) mg/dL Est Cr Clr Drug Dosing mL/min Estimated GFR (MDRD) (>60) mL/min BUN/Creatinine Ratio (14-18) Glucose (74-106) mg/dL Calcium (8.5-10.1) mg/dL Total Bilirubin (0.2-1.0) mg/dL AST (15-37) U/L ALT (14-59) U/L Alkaline Phosphatase (46-116) U/L Total Protein (6.4-8.2) g/dl Albumin (3.4-5.0) g/dl Globulin gm/dL Albumin/Globulin Ratio (1-2) Lipase (73-393) U/L Free T4 (0.76-1.46) ng/dL TSH 3rd Generation 0.338 L (0.358-3.74) uIU/mL HCG, Qual Negative (NEGATIVE) Urine Color (Yellow) Urine Appearance (Clear) Urine pH (5.0-8.0) Ur Specific [place] (1.005-1.030) Urine Protein (Negative) Urine Glucose (UA) (Negative) Urine Ketones (Negative) Urine Occult Blood (Negative) Urine Nitrite (Negative) Urine Bilirubin (Negative) Urine Urobilinogen (0.2-1.0) Ur Leukocyte Esterase (Negative) Urine RBC (0-5) /hpf Urine WBC (0-5) /hpf Ur Squamous Epith Cells (0-5) /hpf Urine Bacteria (FEW) /hpf Urine Mucus (FEW) /hpf Blood Type B POSITIVE Gel Antibody Screen Negative 02/13/20 02/13/20 Range/Units 15:00 16:44 WBC (3.98-10.04) K/mm3 RBC (3.98-5.22) M/mm3 Hgb (11.2-15.7) gm/dl Hct (34.1-44.9) % MCV (79.4-94.8) fl MCH (25.6-32.2) pg MCHC (32.2-35.5) g/dl RDW Std Deviation (36.4-46.3) fL Plt Count (182-369) K/mm3 MPV (9.4-12.3) fl Neut % (Auto) (34.0-71.1) % Lymph % (Auto) (19.3-51.7) % [place] % (Auto) (4.7-12.5) % Eos % (Auto) (0.7-5.8) Baso % (Auto) (0.1-1.2) % Neut # (Auto) (1.56-6.13) K/mm3 Lymph # (Auto) (1.18-3.74) K/mm3 [place] # (Auto) (0.24-0.36) K/mm3 Eos # (Auto) (0.04-0.36) K/mm3 Baso # (Auto) (0.01-0.08) K/mm3 PT (9.7-12.0) SECONDS INR APTT (21.7-31.4) SECONDS Sodium (136-145) mEq/L Potassium (3.5-5.1) mEq/L Chloride (98-107) mEq/L Carbon Dioxide (21-32) mEq/L Anion Gap (5-15) BUN (7-18) mg/dL Creatinine (0.55-1.02) mg/dL Est Cr Clr Drug Dosing mL/min Estimated GFR (MDRD) (>60) mL/min BUN/Creatinine Ratio (14-18) Glucose (74-106) mg/dL Calcium (8.5-10.1) mg/dL Total Bilirubin (0.2-1.0) mg/dL AST (15-37) U/L ALT (14-59) U/L Alkaline Phosphatase (46-116) U/L Total Protein (6.4-8.2) g/dl Albumin (3.4-5.0) g/dl Globulin gm/dL Albumin/Globulin Ratio (1-2) Lipase (73-393) U/L Free T4 1.15 (0.76-1.46) ng/dL TSH 3rd Generation (0.358-3.74) uIU/mL HCG, Qual (NEGATIVE) Urine Color Yellow (Yellow) Urine Appearance Clear (Clear) Urine pH 7.0 (5.0-8.0) Ur Specific [place] 1.015 (1.005-1.030) Urine Protein Negative (Negative) Urine Glucose (UA) Trace H (Negative) Urine Ketones Negative (Negative) Urine Occult Blood Trace-intact H (Negative) Urine Nitrite Negative (Negative) Urine Bilirubin Negative (Negative) Urine Urobilinogen 0.2 (0.2-1.0) Ur Leukocyte Esterase Negative (Negative) Urine RBC 0-5 (0-5) /hpf Urine WBC 0-5 (0-5) /hpf Ur Squamous Epith Cells 0-5 (0-5) /hpf Urine Bacteria Few (FEW) /hpf Urine Mucus Not seen (FEW) /hpf Blood Type Gel Antibody Screen Result Diagrams: 02/13/20 15:00 02/13/20 15:00 Sepsis Event Note - Evaluation Sepsis Screening Result: No Definite Risk - Focused Exam Vital Signs: Vital Signs Temp Pulse Resp BP Pulse Ox 02/13/20 13:13 36.2 C 95 18 131/84 99 Problem List Initiated/Reviewed/Updated: Yes Orders Last 24hrs: Active Orders 24 hr Category Date Time Status Abdomen Pelvis w Cont [CT] Stat Exams 02/13/20 14:16 Taken Transvaginal Non OB [US] Stat Exams 02/13/20 14:14 Taken CORONAVIRUS COVID-19 PRADIP [MOLEC] Stat Lab 02/13/20 16:44 Received FREE T3 [REF] Stat Lab 02/13/20 15:00 Received PATIENT RETYPE [BBK] Routine Lab 02/13/20 15:50 Ordered Dextrose 5%-0.9% NaCl [Dextrose 5%-Normal Saline] 1,000 Med 12/26/20 14:15 Active ml IV ASDIRECTED Lactated Ringers [Ringers, Lactated] 1,000 ml Med 02/13/20 16:45 Active IV ASDIRECTED fentaNYL [Sublimaze] Med 02/13/20 14:56 Active 50 mcg IVPUSH Q45M PRN Medication Orders Fentanyl (Sublimaze) 50 mcg IVPUSH Q45M PRN PRN Reason: Pain Last Admin: 02/13/20 15:15 Dose: 50 mcg Documented by: MANUEL Dextrose/Sodium Chloride (Dextrose 5%-Normal Saline) 1,000 mls @ 150 mls/hr IV ASDIRECTED [facility] Last Admin: 02/13/20 15:01 Dose: 150 mls/hr Documented by: MANUEL Lactated Ringer's (Ringers, Lactated) 1,000 mls @ 150 mls/hr IV ASDIRECTED [facility] Last Admin: 02/13/20 16:56 Dose: 150 mls/hr Documented by: MANUEL Assessment/Plan Comment:: 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 Discussed may need hysterectomy some day, but currently goal is control of pain. Plan diagnostic laparoscopy with probably bilateral salpingectomy. Exam under anesthesia first with consideration of dilation of cervix if possible. RBA discussed. She SSU and wishes to proceed. - Mortality Measure Prognosis:: Good
[2020-02-13] MEDS ORDERED: Scopolamine 1.5 MG Transdermal Patch TOP ONE (17:39)
[2020-02-13] MEDS ORDERED: Scopolamine 1.5 MG Transdermal Patch TRDERM ONE (17:40)
[2020-02-13] MEDS ORDERED: diphenhydrAMINE 50 MG/ML SDV ONE (17:49)
[2020-02-13] MEDS ORDERED: ePHEDrine 50 MG/ML SDV IVPUSH PRN (18:24)
[2020-02-13] MEDS ORDERED: Albuterol 0.083% 2.5 MG/3 ML Neb Soln NEB PRN (18:25)
[2020-02-13] MEDS ORDERED: HYDROmorphone 1 MG/ML Syringe IVPUSH PRN (18:25)
[2020-02-13] MEDS ORDERED: fentaNYL 100 MCG/2 ML SDV ONE (18:45)
--- NOTE | 2020-02-13 19:25 | PCM.POSTAN ---
POST ANESTHESIA ASSESSMENT - MENTAL STATUS Mental Status: Alert - VITAL SIGNS Vital Signs: Last Vital Signs Temp 98 02/13/201917 Pulse 119 02/13/201917 Resp 10 02/13/201917 BP 120/92 02/13/201917 Pulse Ox 95% 02/13/201917 - RESPIRATORY Respiratory Status: Respiratory Rate WNL, Airway Patent, O2 Saturation Stable - CARDIOVASCULAR CV Status: Pulse Rate WNL, Blood Pressure Stable - GASTROINTESTINAL GI Status: No Symptoms - POST OP HYDRATION Hydration Status: Adequate & Stable
[2020-02-13] MEDS ORDERED: Haloperidol Lactate 5 MG/ML SDV IVPUSH ONE (19:26)
[2020-02-13] MEDS ORDERED: Metoclopramide 10 MG/2 ML SDV IV PRN (19:26)
--- NOTE | 2020-02-13 19:27 | PCM.OPNOTE ---
- General Post-Op/Procedure Note Date of Surgery/Procedure: 02/13/20 Operative Procedure(s): Laparoscopic bilateral salpingectomy Findings: Right hematosalpinx Pre Op Diagnosis: Pelvic pain. Probable hematosalpinx Post-Op Diagnosis: same Anesthesia Technique: General ET Tube Primary Surgeon: Stephanie Fregoso Anesthesia Provider: Kendal Mistry Fluid Replacement, Intraop: 1,000 Output, Urine Amount: 300 EBL in mLs: 15 Complications: None Condition: Good Free Text/Narrative:: The risks, benefits, indications, potential complications, and alternatives were explained to the patient and informed consent obtained. The patient was taken to the Operating Room where general anesthesia was induced without complication. The patient was placed in dorsal lithotomy with Jama Stirrups. The patient was then prepped and draped in the usual sterile fashion. A sterile bivalve speculum was placed into the vagina and the anterior lip of the cervix was grasped with a single tooth tenaculum. A [email or web address] uterine manipulator was then advanced into the cervix and attached to the tenaculum to allow uterine manipulation throughout the procedure. The speculum was removed from the vagina. The bladder was drained via straight catheterization. Attention was then turned to the patients abdomen where a Veress needle was inserted into the abdomen superior to the umbilicus which was in abnormal location related to abdominoplasty while tenting the abdominal wall. Intraabdominal placement was confirmed with a drop test using a saline filled syringe and low intraabdominal pressure on low flow. 0.25% Marcaine was injected into the subcutaneous tissue of all skin incisions for local anesthesia prior to port placement. A vertical infraumbilical incision was made in the same location and the 5 mm blunt trocar was inserted with the 5 mm laparoscope inserted through the trocar for direct visualization of abdominal entry through the clear view lens. Once intraabdominal placement was confirmed, the blunt obturator was removed and the laparoscope was inserted and exam of the patient's abdomen revealed the findings detailed above. The patient was placed in Trendelenburg position and the uterus was manipulated to reveal the pelvic findings detailed above as well. Attention was turned to placement of the accessory ports. Both placed on the left. First port was placed approximately 10 cm lateral to the first incision. A 5 mm skin incision was made in the left lower quadrant and a 5 mm trocar was inserted into the abdomen under direct visualization with care to avoid the abdominal wall vasculature. A second port was placed through a 5 mm skin incision a hand breath below the first. A 5 mm trocar was inserted into the abdomen under direct visualization with care to avoid the abdominal wall vasculature. Blunt graspers and probes were used to further examine the pelvis by sweeping bowel away from the dissection field and elevating the adnexal structures. The right fallopian tube was enlarged and had significant blood in the proximal segment. Left tube was normal. The left Fallopian tube was elevated with a blunt grasper. The left mesosalpinx was grasped with the Ligasure device and doubly burned and then transected. The Ligasure was then used to cauterize and transect from the fimbriated end of the fallopian tube to the uterine cornua in a sequential fashion. Once the left fallopian tube was free, it was placed removed easily through the 5 mm port. Next, attention was turned to the right adnexa. The right fallopian tube was elevated with a blunt grasper and the Ligasure device was used to cauterize and transect the right mesosalpinx in a similar fashion from the fimbriated end to the uterine cornua until it was free from all attachments. The lower 5 mm port was replaced with a 12 mm as the tube would not fit through at 5 mm. The right fallopian tube was easily removed through this 12 mm port. Inspection of the pelvis confirmed hemostasis of bilateral dissection beds. Port closure device with 0 vicryl was used to close the fascia at the 12 mm port. The left and right lower quadrant trocars were then removed under direct visualization. The pneumoperitoneum was allowed to escape. The umbilical trocar was removed and lastly the camera was removed from the abdomen under direct visualization to confirm no herniation into the port site. The skin incisions were re-approximated with 4-0 Monocryl in a running subcuticular fashion and sealed with Dermabond. The patient was awakened and taken to the Recovery Room in stable condition.
--- NOTE | 2020-02-13 19:36 | PCM48HPAN ---
Post Anesthesia Note - EVALUATION WITHIN 48HRS OF ANESTHETIC Vital Signs in Normal Range: Yes Patient Participated in Evaluation: Yes Respiratory Function Stable: Yes Airway Patent: Yes Cardiovascular Function Stable: Yes Hydration Status Stable: Yes Pain Control Satisfactory: Yes Nausea and Vomiting Control Satisfactory: Yes Mental Status Recovered: Yes Vital Signs: Last Vital Signs Temp 36.6 C 02/13/20 19:30 Pulse 76 02/13/20 19:30 Resp 13 02/13/20 19:30 BP 120/73 02/13/20 19:30 Pulse Ox 94 L 02/13/20 19:30
[2020-02-13] MEDS ORDERED: Meperidine 50 MG/ML Vial IVPUSH STA (19:37)
[2020-02-13] MEDS: fentaNYL 100 MCG/2 ML SDV IVPUSH PRN ×2 (19:52→20:09)
[2020-02-13] MEDS: Acetaminophen/oxyCODONE 325-5 MG Tab PO PRN (22:22)
[2020-02-13] MEDS ORDERED: Ibuprofen 600 MG Tab PO PRN (23:30)
[2020-02-14] MEDS: diphenhydrAMINE 50 MG/ML SDV IVPUSH PRN ×2 (01:53→08:27)
[2020-02-14] MEDS: Acetaminophen/oxyCODONE 325-5 MG Tab PO PRN ×4 (01:53→10:47)
--- NOTE | 2020-02-14 07:40 | PCM.PN ---
- General Info Date of Service: 02/14/20 Subjective Update: Resting well. No complaints. Functional Status: Reports: Pain Controlled - Review of Systems General: Reports: No Symptoms HEENT: Reports: No Symptoms Pulmonary: Reports: No Symptoms Cardiovascular: Reports: No Symptoms Gastrointestinal: Reports: No Symptoms Genitourinary: Reports: No Symptoms Musculoskeletal: Reports: No Symptoms Skin: Reports: No Symptoms Neurological: Reports: No Symptoms Psychiatric: Reports: No Symptoms - Patient Data Vitals - Most Recent: Last Vital Signs Temp 36.6 C 02/13/20 22:21 Pulse 71 02/14/20 01:56 Resp 13 02/13/20 22:21 BP 95/66 02/14/20 01:56 Pulse Ox 97 02/14/20 01:56 Weight - Most Recent: 89.811 kg I&O - Last 24 Hours: Intake & Output 02/13/20 02/14/20 02/14/20 22:59 06:59 14:59 Intake Total 1650 1250 Output Total 600 650 Balance 1050 600 Lab Results Last 24 Hours: Laboratory Results - last 24 hr 02/13/20 02/13/20 02/13/20 Range/Units 15:00 15:00 15:00 WBC 8.25 (3.98-10.04) K/mm3 RBC 5.05 (3.98-5.22) M/mm3 Hgb 13.0 (11.2-15.7) gm/dl Hct 40.6 (34.1-44.9) % MCV 80.4 (79.4-94.8) fl MCH 25.7 (25.6-32.2) pg MCHC 32.0 L (32.2-35.5) g/dl RDW Std Deviation 39.6 (36.4-46.3) fL Plt Count 233 (182-369) K/mm3 MPV 10.4 (9.4-12.3) fl Neut % (Auto) 78.8 H (34.0-71.1) % Lymph % (Auto) 13.7 L (19.3-51.7) % [place] % (Auto) 6.5 (4.7-12.5) % Eos % (Auto) 0.7 (0.7-5.8) Baso % (Auto) 0.1 (0.1-1.2) % Neut # (Auto) 6.49 H (1.56-6.13) K/mm3 Lymph # (Auto) 1.13 L (1.18-3.74) K/mm3 [place] # (Auto) 0.54 H (0.24-0.36) K/mm3 Eos # (Auto) 0.06 (0.04-0.36) K/mm3 Baso # (Auto) 0.01 (0.01-0.08) K/mm3 PT 10.5 (9.7-12.0) SECONDS INR 0.98 APTT 24.9 (21.7-31.4) SECONDS Sodium 141 (136-145) mEq/L Potassium 3.7 (3.5-5.1) mEq/L Chloride 105 (98-107) mEq/L Carbon Dioxide 27 (21-32) mEq/L Anion Gap 12.7 (5-15) BUN 15 (7-18) mg/dL Creatinine 0.9 (0.55-1.02) mg/dL Est Cr Clr Drug Dosing 91.18 mL/min Estimated GFR (MDRD) > 60 (>60) mL/min BUN/Creatinine Ratio 16.7 (14-18) Glucose 92 (74-106) mg/dL Calcium 9.3 (8.5-10.1) mg/dL Total Bilirubin 0.4 (0.2-1.0) mg/dL AST 9 L (15-37) U/L ALT 16 (14-59) U/L Alkaline Phosphatase 93 (46-116) U/L Total Protein 7.8 (6.4-8.2) g/dl Albumin 3.9 (3.4-5.0) g/dl Globulin 3.9 gm/dL Albumin/Globulin Ratio 1.0 (1-2) Lipase 199 (73-393) U/L Free T4 (0.76-1.46) ng/dL TSH 3rd Generation (0.358-3.74) uIU/mL HCG, Qual (NEGATIVE) Urine Color (Yellow) Urine Appearance (Clear) Urine pH (5.0-8.0) Ur Specific [place] (1.005-1.030) Urine Protein (Negative) Urine Glucose (UA) (Negative) Urine Ketones (Negative) Urine Occult Blood (Negative) Urine Nitrite (Negative) Urine Bilirubin (Negative) Urine Urobilinogen (0.2-1.0) Ur Leukocyte Esterase (Negative) Urine RBC (0-5) /hpf Urine WBC (0-5) /hpf Ur Squamous Epith Cells (0-5) /hpf Urine Bacteria (FEW) /hpf Urine Mucus (FEW) /hpf SARS-CoV-2 RNA (PRADIP) (NEGATIVE) Blood Type Gel Antibody Screen 02/13/20 02/13/20 02/13/20 Range/Units 15:00 15:00 15:00 WBC (3.98-10.04) K/mm3 RBC (3.98-5.22) M/mm3 Hgb (11.2-15.7) gm/dl Hct (34.1-44.9) % MCV (79.4-94.8) fl MCH (25.6-32.2) pg MCHC (32.2-35.5) g/dl RDW Std Deviation (36.4-46.3) fL Plt Count (182-369) K/mm3 MPV (9.4-12.3) fl Neut % (Auto) (34.0-71.1) % Lymph % (Auto) (19.3-51.7) % [place] % (Auto) (4.7-12.5) % Eos % (Auto) (0.7-5.8) Baso % (Auto) (0.1-1.2) % Neut # (Auto) (1.56-6.13) K/mm3 Lymph # (Auto) (1.18-3.74) K/mm3 [place] # (Auto) (0.24-0.36) K/mm3 Eos # (Auto) (0.04-0.36) K/mm3 Baso # (Auto) (0.01-0.08) K/mm3 PT (9.7-12.0) SECONDS INR APTT (21.7-31.4) SECONDS Sodium (136-145) mEq/L Potassium (3.5-5.1) mEq/L Chloride (98-107) mEq/L Carbon Dioxide (21-32) mEq/L Anion Gap (5-15) BUN (7-18) mg/dL Creatinine (0.55-1.02) mg/dL Est Cr Clr Drug Dosing mL/min Estimated GFR (MDRD) (>60) mL/min BUN/Creatinine Ratio (14-18) Glucose (74-106) mg/dL Calcium (8.5-10.1) mg/dL Total Bilirubin (0.2-1.0) mg/dL AST (15-37) U/L ALT (14-59) U/L Alkaline Phosphatase (46-116) U/L Total Protein (6.4-8.2) g/dl Albumin (3.4-5.0) g/dl Globulin gm/dL Albumin/Globulin Ratio (1-2) Lipase (73-393) U/L Free T4 (0.76-1.46) ng/dL TSH 3rd Generation 0.338 L (0.358-3.74) uIU/mL HCG, Qual Negative (NEGATIVE) Urine Color (Yellow) Urine Appearance (Clear) Urine pH (5.0-8.0) Ur Specific [place] (1.005-1.030) Urine Protein (Negative) Urine Glucose (UA) (Negative) Urine Ketones (Negative) Urine Occult Blood (Negative) Urine Nitrite (Negative) Urine Bilirubin (Negative) Urine Urobilinogen (0.2-1.0) Ur Leukocyte Esterase (Negative) Urine RBC (0-5) /hpf Urine WBC (0-5) /hpf Ur Squamous Epith Cells (0-5) /hpf Urine Bacteria (FEW) /hpf Urine Mucus (FEW) /hpf SARS-CoV-2 RNA (PRADIP) (NEGATIVE) Blood Type B POSITIVE Gel Antibody Screen Negative 02/13/20 02/13/20 02/13/20 Range/Units 15:00 16:44 16:44 WBC (3.98-10.04) K/mm3 RBC (3.98-5.22) M/mm3 Hgb (11.2-15.7) gm/dl Hct (34.1-44.9) % MCV (79.4-94.8) fl MCH (25.6-32.2) pg MCHC (32.2-35.5) g/dl RDW Std Deviation (36.4-46.3) fL Plt Count (182-369) K/mm3 MPV (9.4-12.3) fl Neut % (Auto) (34.0-71.1) % Lymph % (Auto) (19.3-51.7) % [place] % (Auto) (4.7-12.5) % Eos % (Auto) (0.7-5.8) Baso % (Auto) (0.1-1.2) % Neut # (Auto) (1.56-6.13) K/mm3 Lymph # (Auto) (1.18-3.74) K/mm3 [place] # (Auto) (0.24-0.36) K/mm3 Eos # (Auto) (0.04-0.36) K/mm3 Baso # (Auto) (0.01-0.08) K/mm3 PT (9.7-12.0) SECONDS INR APTT (21.7-31.4) SECONDS Sodium (136-145) mEq/L Potassium (3.5-5.1) mEq/L Chloride (98-107) mEq/L Carbon Dioxide (21-32) mEq/L Anion Gap (5-15) BUN (7-18) mg/dL Creatinine (0.55-1.02) mg/dL Est Cr Clr Drug Dosing mL/min Estimated GFR (MDRD) (>60) mL/min BUN/Creatinine Ratio (14-18) Glucose (74-106) mg/dL Calcium (8.5-10.1) mg/dL Total Bilirubin (0.2-1.0) mg/dL AST (15-37) U/L ALT (14-59) U/L Alkaline Phosphatase (46-116) U/L Total Protein (6.4-8.2) g/dl Albumin (3.4-5.0) g/dl Globulin gm/dL Albumin/Globulin Ratio (1-2) Lipase (73-393) U/L Free T4 1.15 (0.76-1.46) ng/dL TSH 3rd Generation (0.358-3.74) uIU/mL HCG, Qual (NEGATIVE) Urine Color Yellow (Yellow) Urine Appearance Clear (Clear) Urine pH 7.0 (5.0-8.0) Ur Specific [place] 1.015 (1.005-1.030) Urine Protein Negative (Negative) Urine Glucose (UA) Trace H (Negative) Urine Ketones Negative (Negative) Urine Occult Blood Trace-intact H (Negative) Urine Nitrite Negative (Negative) Urine Bilirubin Negative (Negative) Urine Urobilinogen 0.2 (0.2-1.0) Ur Leukocyte Esterase Negative (Negative) Urine RBC 0-5 (0-5) /hpf Urine WBC 0-5 (0-5) /hpf Ur Squamous Epith Cells 0-5 (0-5) /hpf Urine Bacteria Few (FEW) /hpf Urine Mucus Not seen (FEW) /hpf SARS-CoV-2 RNA (PRADIP) Negative (NEGATIVE) Blood Type Gel Antibody Screen Med Orders - Current: Current Medications Diphenhydramine HCl (Benadryl) 25 mg IVPUSH Q6H PRN PRN Reason: Itching Last Admin: 02/14/20 01:53 Dose: 25 mg Documented by: Ibuprofen (Motrin) 600 mg PO Q6H PRN PRN Reason: Pain (mild 1-3) Oxycodone/Acetaminophen (Percocet 325-5 Mg) 1 tab PO Q4H PRN PRN Reason: Pain (moderate 4-6) Last Admin: 02/14/20 06:36 Dose: 1 tab Documented by: Oxycodone/Acetaminophen (Percocet 325-5 Mg) 2 tab PO Q4H PRN PRN Reason: Pain (severe 7-10) Last Admin: 02/14/20 01:53 Dose: 2 tab Documented by: Discontinued Medications Albuterol (Proventil Neb Soln) 2.5 mg NEB ONETIME PRN PRN Reason: bronchodilation Bupivacaine HCl (Marcaine 0.5%) Confirm Administered Dose 30 ml .ROUTE .STK-MED ONE Stop: 02/13/20 17:17 Last Admin: 02/13/20 18:30 Dose: 6 ml Documented by: Dexamethasone (Dexamethasone) Confirm Administered Dose 20 mg .ROUTE .STK-MED ONE Stop: 02/13/20 17:26 Diphenhydramine HCl (Benadryl) 25 mg IVPUSH ONETIME ONE Stop: 02/13/20 14:13 Last Admin: 02/13/20 15:01 Dose: 25 mg Documented by: Diphenhydramine HCl (Benadryl) Confirm Administered Dose 50 mg .ROUTE .STK-MED ONE Stop: 02/13/20 17:50 Ephedrine Sulfate (Ephedrine Sulfate) 5 mg IVPUSH ASDIRECTED PRN PRN Reason: Hypotension Fentanyl (Sublimaze) 50 mcg IVPUSH ONETIME ONE Stop: 02/13/20 14:13 Last Admin: 02/13/20 15:01 Dose: 50 mcg Documented by: Fentanyl (Sublimaze) 50 mcg IVPUSH Q45M PRN PRN Reason: Pain Last Admin: 02/13/20 15:15 Dose: 50 mcg Documented by: Fentanyl (Sublimaze) Confirm Administered Dose 250 mcg .ROUTE .STK-MED ONE Stop: 02/13/20 17:27 Fentanyl (Sublimaze) 50 mcg IVPUSH Q5M PRN PRN Reason: Pain Last Admin: 02/13/20 20:09 Dose: 50 mcg Documented by: Fentanyl (Sublimaze) Confirm Administered Dose 100 mcg .ROUTE .STK-MED ONE Stop: 02/13/20 18:46 Glycopyrrolate (Robinul) Confirm Administered Dose 0.8 mg .ROUTE .STK-MED ONE Stop: 02/13/20 18:43 Glycopyrrolate (Robinul) Confirm Administered Dose 0.4 mg .ROUTE .STK-MED ONE Stop: 02/13/20 19:02 Haloperidol Lactate (Haldol) 1 mg IVPUSH ONETIME ONE Stop: 02/13/20 19:27 Last Admin: 02/14/20 06:07 Dose: Not Given Documented by: Hydromorphone HCl (Dilaudid) 0.5 mg IVPUSH ONETIME ONE Stop: 02/13/20 16:37 Last Admin: 02/13/20 16:40 Dose: 0.5 mg Documented by: Hydromorphone HCl (Dilaudid) Confirm Administered Dose 0.5 mg .ROUTE .STK-MED ONE Stop: 02/13/20 17:26 Hydromorphone HCl (Dilaudid) 1 mg IVPUSH ONETIME PRN PRN Reason: Pain Dextrose/Sodium Chloride (Dextrose 5%-Normal Saline) 1,000 mls @ 150 mls/hr IV ASDIRECTED [facility] Last Admin: 02/13/20 15:01 Dose: 150 mls/hr Documented by: Lactated Ringer's (Ringers, Lactated) 1,000 mls @ 150 mls/hr IV ASDIRECTED [facility] Last Admin: 02/13/20 16:56 Dose: 150 mls/hr Documented by: Lidocaine HCl (Xylocaine-Mpf 1%) Confirm Administered Dose 4 mls @ as directed .ROUTE .STK-MED ONE Stop: 02/13/20 17:26 Lactated Ringer's (Ringers, Lactated) Confirm Administered Dose 2,000 mls @ as directed .ROUTE .STK-MED ONE Stop: 02/13/20 17:26 Iopamidol (Isovue-300 (61%)) 100 ml IVPUSH ONETIME ONE Stop: 02/13/20 16:27 Last Admin: 02/13/20 16:26 Dose: 100 ml Documented by: Ketorolac Tromethamine (Toradol) Confirm Administered Dose 30 mg .ROUTE .STK-MED ONE Stop: 02/13/20 17:26 Meperidine HCl (Meperidine) 25 mg IVPUSH ONETIME STA Stop: 02/13/20 19:38 Last Admin: 02/13/20 19:44 Dose: 25 mg Documented by: Metoclopramide HCl (Reglan) 10 mg IV ONETIME PRN PRN Reason: Nausea/Vomiting Midazolam HCl (Versed 1 Mg/Ml) Confirm Administered Dose 2 mg .ROUTE .STK-MED ONE Stop: 02/13/20 17:27 Miscellaneous Information (Remove Patch) 1 ea TRDERM ONETIME ONE Stop: 02/16/20 18:01 Miscellaneous Medication (Phenylephrine 1 Mg/10 Ml-Ns) 0 mg IVPUSH ONETIME ONE Stop: 02/13/20 18:25 Last Admin: 02/13/20 20:12 Dose: Not Given Documented by: Neostigmine Methylsulfate (Neostigmine Methylsulfate) Confirm Administered Dose 5 mg .ROUTE .STK-MED ONE Stop: 02/13/20 18:43 Ondansetron HCl (Zofran) 4 mg IVPUSH ONETIME ONE Stop: 02/13/20 14:14 Last Admin: 02/13/20 15:01 Dose: 4 mg Documented by: Ondansetron HCl (Zofran) Confirm Administered Dose 4 mg .ROUTE .STK-MED ONE Stop: 02/13/20 17:26 Propofol (Diprivan 20 Ml) Confirm Administered Dose 200 mg .ROUTE .STK-MED ONE Stop: 02/13/20 17:26 Rocuronium [place] (Zemuron) Confirm Administered Dose 50 mg .ROUTE .STK-MED ONE Stop: 02/13/20 17:26 Scopolamine (Transderm-Scop) 1.5 mg TOP ONETIME ONE Stop: 02/13/20 17:40 Last Admin: 02/13/20 17:44 Dose: 1.5 mg Documented by: Scopolamine (Transderm-Scop) 1.5 mg TRDERM ONETIME ONE Stop: 02/13/20 17:41 Last Admin: 02/13/20 20:05 Dose: Not Given Documented by: Sodium Chloride (Saline Flush) 10 ml FLUSH ONETIME ONE Stop: 02/13/20 16:27 Last Admin: 02/13/20 16:26 Dose: 10 ml Documented by: - Exam General: Alert, Oriented, Other (sleepy) HEENT: Pupils Equal, Pupils Reactive, EOMI, Mucous Membr. Moist/Sawpit Neck: Supple Lungs: Normal Respiratory Effort Cardiovascular: Regular Rate, Regular Rhythm GI/Abdominal Exam: Normal Bowel Sounds, Soft, Non-Tender, No Organomegaly, No Distention, No Abnormal Bruit, No Mass, Pelvis Stable, Other (incisions excellent) Back Exam: Normal Inspection, Full Range of Motion Extremities: Normal Inspection, Normal Range of Motion, Non-Tender, No Pedal Edema, Normal Capillary Refill Skin: Warm, Dry, Intact Wound/Incisions: Healing Well Neurological: No New Focal Deficit Psy/Mental Status: Alert, Normal Affect, Normal Mood Sepsis Event Note - Evaluation Sepsis Screening Result: No Definite Risk - Focused Exam Vital Signs: Vital Signs Temp Temp Pulse Pulse Resp BP BP 02/14/20 01:56 71 95/66 02/13/20 22:21 36.6 C 83 13 106/73 02/13/20 20:25 36.7 C 76 13 109/76 02/13/20 20:15 36.8 C 81 14 108/65 02/13/20 20:04 02/13/20 20:00 36.7 C 67 12 120/74 02/13/20 19:45 36.8 C 62 10 L 105/66 Pulse Ox Pulse Ox 02/14/20 01:56 97 02/13/20 22:21 98 02/13/20 20:25 98 02/13/20 20:15 95 02/13/20 20:04 98 02/13/20 20:00 98 02/13/20 19:45 99 - Problem List Review Problem List Initiated/Reviewed/Updated: Yes - My Orders Last 24 Hours: My Active Orders 02/13/20 Breakfast Regular Diet [DIET] 02/13/20 20:19 Acetaminophen/oxyCODONE [Percocet 325-5 MG] 1 tab PO Q4H PRN Acetaminophen/oxyCODONE [Percocet 325-5 MG] 2 tab PO Q4H PRN 02/13/20 20:19 Vital Signs [RC] Q4HR 02/13/20 21:34 Code Status [Resuscitation Status] Routine 02/13/20 23:30 Ibuprofen [Motrin] 600 mg PO Q6H PRN 02/14/20 01:19 diphenhydrAMINE [Benadryl] 25 mg IVPUSH Q6H PRN - Assessment Assessment:: Extended floor recovery. Has no ride until 3pm. Can go at that point. Feeling well.
--- NOTE | 2020-02-14 09:59 | US ---
Pelvic ultrasound: Multiple real-time images were obtained transvaginally. Comparison: No prior pelvic imaging is available. Uterus is anteverted. No myometrial abnormality is appreciated. Right and left ovaries show small follicles. There is a tubular structure being seen on the right side which is suspicious for probable inflammatory salpingitis. No definite free fluid is appreciated. Measurements: Uterus: Length 6.8 cm, AP height 3.6 cm, transverse width 4.5 cm Right ovary: 3.0 x 2.8 x 2.4 cm Left ovary: 3.3 x 2.4 x 2.5 cm Impression: 1. Findings suspicious for soft tissue density within a slightly dilated right fallopian tube suspicious for salpingitis. 2. No additional abnormality is appreciated. Diagnostic code #3 I agree with preliminary report from [facility], finalized on 02/13/20, 5:01 PM [employer]
--- NOTE | 2020-02-14 10:17 | CT ---
CT abdomen and pelvis Technique: Multiple axial sections were obtained from above the dome of the diaphragm inferiorly through the pubic symphysis. Intravenous contrast was utilized. No oral contrast has been given. Delayed images were also obtained to the pelvis. Reconstructed coronal and sagittal images were obtained. Comparison: Pelvic ultrasound performed on the same day. No previous abdominal imaging. Findings: There is a tubular structure being seen within the right adnexa most likely representing fallopian tube dilatation which is compatible with salpingitis. Slight inflammatory change is seen within the fat of several adjacent small bowel loops compatible with minimal enteritis most likely from the salpingitis. Very minimal fluid is seen within the pelvis. Visualized lung bases show nothing acute. Bilateral breast prostheses are noted. Liver contains no focal parenchymal abnormality. Spleen appears within normal limits. Adrenal glands show no nodule. Pancreas shows no discrete abnormality. Surgical clips are seen from prior cholecystectomy. Kidneys show symmetric contrast enhancement. Delayed images show contrast within the distal ureters and bladder. Aorta shows no aneurysm. No retroperitoneal adenopathy or mesenteric abnormalities are seen. Previous surgery is noted off the base of the cecum most likely due to previous appendectomy. Other pelvic findings as noted above. Bone window settings were reviewed which show no acute osseous finding. Impression: 1. Findings felt compatible with right-sided salpingitis. 2. Slight inflammatory change within the fat of an adjacent small bowel loop compatible with mild enteritis most likely secondary to the salpingitis. 3. Minimal free fluid within the pelvis is seen. 4. Other findings believed to be incidental as noted above. Diagnostic code #3 I agree with preliminary report from [facility], finalized on 02/13/20, 5:38 PM [employer]
== END 2020-02-14 14:20 | disposition home or self-care (01) ==
LOC: JD.ED 13:04 → JD.SDS 17:22 → JD.OB 19:51 → JD.SDS 02-14 14:20
PROVIDERS: ATTEND Obstetrics & Gynecology
DX: N83.8 Other noninflammatory disorders of ovary, fallopian tube and broad ligament (principal); Q50.6 Other congenital malformations of fallopian tube and broad ligament; K65.8 Other peritonitis; Z88.8 Allergy status to other drugs, medicaments and biological substances; Z01.812 Encounter for preprocedural laboratory examination; Z20.828 Contact with and (suspected) exposure to other viral communicable diseases; Z98.890 Other specified postprocedural states; Z98.84 Bariatric surgery status; Z90.49 Acquired absence of other specified parts of digestive tract
CPT/HCPCS: 36415; 58661; 74177; 76830; 80053; 81001; 83690; 84439; 84443; 84481; 84703; 85025; 85610; 85730; 86850; 86900; 86901; 87635; 96374; 96375; 96376; 99285; A9270; J1100; J1170; J1200; J1885; J2001; J2175; J2250; J2405; J2704; J2710; J3010; J3490; J7042; J7120; Q9967; 00840; U0002

== ENCOUNTER 2020-02-16 14:26 | Emergency (ER) | payer BC ==
[2020-02-16] MEDS ORDERED: Sodium Chloride 0.9% 1,000 ML IV STA (14:51)
[2020-02-16] MEDS ORDERED: Sodium Chloride 0.9% 10 ML Syringe FLUSH PRN (14:51)
[2020-02-16] MEDS ORDERED: Ondansetron 4 MG/2 ML SDV IVPUSH ONE (14:51)
[2020-02-16] MEDS ORDERED: HYDROmorphone 0.5 MG/0.5 ML Syringe IVPUSH ONE (14:51)
[2020-02-16] MEDS ORDERED: Metoclopramide 10 MG/2 ML SDV IVPUSH ONE (14:54)
--- NOTE | 2020-02-16 14:59 | EDM.PDOC ---
ED HPI GENERAL MEDICAL PROBLEM - General Chief Complaint: Abdominal Pain Stated Complaint: UNABLE TO URINATE,NO BOWEL MOVEMENT POST SURGERY Time Seen by Provider: 02/16/20 14:31 Source of Information: Reports: Patient, RN Notes Reviewed History Limitations: Reports: No Limitations - History of Present Illness INITIAL COMMENTS - FREE TEXT/NARRATIVE: Patient is a 34-year-old female presenting to the emergency department with complaints of generalized abdominal discomfort, worse in the left lower quadrant with inability have a bowel movement and difficulty urinating. She had laparoscopic bilateral salpingectomy 2 days ago. She states that for the 5 days prior to surgery she had not had a bowel movement, and she has not had one since surgery. She states that she has to strain in order to urinate. She saw Dr. Mishra yesterday as her surgeon, Dr. Nieves, was out of the office. She states that it x-rayed and showed that she had significant stool in her colon. At that time, her pain medications were changed from Percocet to Dilaudid as Percocet was not adequately managing her pain. States her last dose of Dilaudid was early this morning. She has taken a total of 5 doses of MiraLAX as well as about 6 Colace since last evening. She has had no results. She complains of feeling nauseous but has had no vomiting. 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 They were discovered coincidentally from an ERCP that was done after gastric sleeve procedure was performed Genitourinary History: Reports: Other (See Below) Other Genitourinary History: hx of UTI x2 [employer] History: Reports: Endometrial Ablation Musculoskeletal History: Reports: None Neurological History: Reports: None Psychiatric History: Reports: None Endocrine/Metabolic History: Reports: None Hematologic History: Reports: None Immunologic History: Reports: None Oncologic (Cancer) History: Reports: None Dermatologic History: Reports: None - Infectious Disease History Infectious Disease History: Reports: Hepatitis A Other Infectious Disease History: Hx of Hep A, not currently positive - Past Surgical History HEENT Surgical History: Reports: Other (See Below) Other HEENT Surgeries/Procedures: tooth removed Cardiovascular Surgical History: Reports: None GI Surgical History: Reports: Appendectomy, Bariatric Procedure, Cholecystectomy Female Surgical History: Reports: Endometrial Ablation, Tubal Ligation Social & Family History - Family History Family Medical History: No Pertinent Family History - Tobacco Use Tobacco Use Status *Q: Never Tobacco User - Caffeine Use Caffeine Use: Reports: Soda - Recreational Drug Use Recreational Drug Use: No - Living Situation & Occupation Living situation: Reports: Occupation: Employed ED ROS GENERAL - Review of Systems Review Of Systems: See Below Constitutional: Reports: Decreased Appetite. Denies: Fever, Chills HEENT: Reports: No Symptoms Respiratory: Reports: No Symptoms Cardiovascular: Reports: No Symptoms Endocrine: Reports: No Symptoms GI/Abdominal: Reports: Abdominal Pain, Constipation, Nausea. Denies: Vomiting : Reports: No Symptoms Musculoskeletal: Reports: No Symptoms Skin: Reports: No Symptoms Neurological: Reports: No Symptoms Psychiatric: Reports: No Symptoms Hematologic/Lymphatic: Reports: No Symptoms Immunologic: Reports: No Symptoms ED EXAM, GI/ABD - Physical Exam Exam: See Below General Appearance: Alert, WD/WN, No Apparent Distress Respiratory/Chest: No Respiratory Distress, Lungs Clear, Normal Breath Sounds, No Accessory Muscle Use, Chest Non-Tender Cardiovascular: Normal Peripheral Pulses, Regular Rate, Rhythm, No Edema, No Gallop, No JVD, No Murmur, No Rub GI/Abdominal Exam: Normal Bowel Sounds, Soft, No Organomegaly, No Distention, No Abnormal Bruit, No Mass, Pelvis Stable, Tender (generalized tenderness, worse in the LLQ), Other (glued, well approximated laproscopic surgical incisions. no redness, warmth, or drainage.) Neurological: Alert, Oriented, CN II-XII Intact, Normal Cognition, Normal Gait, Normal Reflexes, No Motor/Sensory Deficits Psychiatric: Normal Affect, Normal Mood Skin Exam: Warm, Dry, Intact, Normal Color, No Rash Course - Vital Signs Last Recorded V/S: Last Vital Signs Temp 97.6 F 02/16/20 14:38 Pulse 67 02/16/20 14:38 Resp 20 12/29/20 14:38 BP 121/89 02/16/20 14:38 Pulse Ox 96 02/16/20 14:38 - Orders/Labs/Meds Orders: Active Orders 24 hr Category Date Time Status Insert Urinary Catheter [OM.PC] Stat Care 02/16/20 17:40 Ordered Peripheral IV Insertion Adult [OM.PC] Stat Oth 02/16/20 14:51 Ordered Labs: Laboratory Tests 02/16/20 Range/Units 17:40 Urine Color Yellow (Yellow) Urine Appearance Clear (Clear) Urine pH 6.5 (5.0-8.0) Ur Specific Viola 1.020 (1.005-1.030) Urine Protein Negative (Negative) Urine Glucose (UA) Negative (Negative) Urine Ketones Negative (Negative) Urine Occult Blood Negative (Negative) Urine Nitrite Negative (Negative) Urine Bilirubin Negative (Negative) Urine Urobilinogen 0.2 (0.2-1.0) Ur Leukocyte Esterase Negative (Negative) Urine RBC 0-5 (0-5) /hpf Urine WBC 0-5 (0-5) /hpf Ur Squamous Epith Cells 0-5 (0-5) /hpf Urine Bacteria Occasional (FEW) /hpf Urine Mucus Not seen (FEW) /hpf Meds: Medications Discontinued Medications Generic Name Dose Route Start Last Admin Trade Name Marilin PRN Reason Stop Dose Admin Diphenhydramine HCl 25 mg 02/16/20 15:45 02/16/20 15:49 Benadryl IVPUSH 02/16/20 15:46 25 mg ONETIME ONE Administration Hydromorphone HCl 0.5 mg 02/16/20 14:51 02/16/20 15:31 Dilaudid IVPUSH 02/16/20 14:52 0.5 mg ONETIME ONE Administration Sodium Chloride 1,000 mls @ 999 mls/hr 02/16/20 14:51 02/16/20 15:31 Normal Saline IV 02/16/20 15:51 999 mls/hr NOW STA Administration Influenza Virus Vaccine 60 mcg 02/16/20 15:00 02/16/20 15:31 Fluzone Quad [id number] Syringe IM 02/16/20 15:01 60 mcg .ONCE ONE Administration Metoclopramide HCl 7.5 mg 02/16/20 14:54 02/16/20 15:36 Reglan IVPUSH 02/16/20 14:55 7.5 mg ONETIME ONE Administration Ondansetron HCl 4 mg 02/16/20 14:51 02/16/20 15:34 Zofran IVPUSH 02/16/20 14:52 Not Given ONETIME ONE Sodium Chloride 10 ml 02/16/20 14:51 02/16/20 15:32 Saline Flush FLUSH 10 ml ASDIRECTED PRN Administration Keep Vein Open - Re-Assessments/Exams Free Text/Narrative Re-Assessment/Exam: Patient is a 34-year-old female presenting to the emergency department with complaints of generalized abdominal pain, worse in the left lower quadrant. She has not had a bowel movement for approximately 7 days. She had surgery 2 days ago for bilateral salpingectomy. She had been using Percocet for pain but was recently switched to Dilaudid by Dr. Michelle in the clinic. States her x-rays completed yesterday and they did show increased stool throughout her colon. She has taken approximately 5 doses of MiraLAX and 6 Colace since last evening with no results. She feels nauseous but had no vomiting. I have ordered CBC, CMP, CRP, and a two-view abdomen x-ray. I will give her 1 L bolus of normal saline, Reglan for nausea, and Dilaudid for pain. 02/16/20 1520 Abdomen flat and upright reviewed by myself and Dr. Anton shows a considerable amount of stool in the rectal vault, through the descending colon, and within t he ascending colon. I have ordered a soapsuds enema. 02/16/20 17:06 Patient had a very large bowel movement after the enema. States the abdominal pressure, pain, and nausea has resolved. She does still have some pain in the areas of her surgical incisions but states that her generalized abdominal pain and pressure, as well as her nausea,has resolved. She still continues to complain of difficulty voiding. States she has to strain and only dribbles a small amount. I ordered a postvoid residual bladder scan to be completed. 02/16/20 18:12 Bladder scan showed 300 mils of urine in the bladder. She was able to void a small amount with 100 mils remaining. Straight cath was performed for urine collection. Urinalysis was negative for infection. Patient is feeling much better. States she has "normal postop pain "at this time and states that she is hungry and thinks she actually may build to eat. We will discharge her home. Recommend that she continue MiraLAX and Colace for the next few days and then slowly back off if her stools are too loose. Recommend Tylenol and ibuprofen before using narcotic pain management as this will worsen constipation. Discussed return precautions. Discharge instructions as documented. Departure - Departure Time of Disposition: 18:13 Disposition: Home, Self-Care 01 Condition: Good Clinical Impression: Constipation by delayed colonic transit, Nausea Abdominal pain Qualifiers: Abdominal location: lower abdomen, unspecified Qualified Code(s): R10.30 - Lower abdominal pain, unspecified - Discharge Information *PRESCRIPTION DRUG MONITORING PROGRAM REVIEWED*: No *COPY OF PRESCRIPTION DRUG MONITORING REPORT IN PATIENT DELFINA: No Instructions: Constipation, Adult Referrals: Stephanie Fregoso MD [Primary Care Provider] - Forms: ED Department Discharge Additional Instructions: You were seen in the emergency department today for abdominal pain nausea, and inability to have a bowel movement. While in the ER, you received a soapsuds enema and were able to have a very large bowel movement which did improve your symptoms. Recommend you continue the MiraLAX and Colace for the next few days. If your stools are too loose, you may stop the MiraLAX but continue the Colace. Try using Tylenol and ibuprofen for pain relief as narcotic pain medications will only worsen the constipation.. If these medications do not relieve the pain, then you may take the pain medications prescribed to you. Increase your fiber and fluid intake. If you continue to have difficulties urinating, recommend follow-up in the clinic or return to ER as needed. Sepsis Event Note (ED) - Evaluation Sepsis Screening Result: No Definite Risk - My Orders Last 24 Hours: My Active Orders 02/16/20 14:51 Peripheral IV Insertion Adult [OM.PC] Stat 02/16/20 17:40 Insert Urinary Catheter [OM.PC] Stat - Assessment/Plan Last 24 Hours: My Active Orders 02/16/20 14:51 Peripheral IV Insertion Adult [OM.PC] Stat 02/16/20 17:40 Insert Urinary Catheter [OM.PC] Stat
[2020-02-16] MEDS ORDERED: FLU VACC QS2020-21(6MOS UP)/PF 60 MCG/0.5 ML SYRINGE IM ONE (15:00)
--- NOTE | 2020-02-16 15:33 | CR ---
Abdomen: Supine and upright views of the abdomen were obtained. Comparison: Prior CT abdomen and pelvis study of 02/13/20. Findings: Multiple surgical clips are noted within the right pelvis. Surgical clips are also seen within the upper right abdomen. There are surgical anastomotic sutures being seen within the left upper abdomen. Bowel gas pattern is normal. No free air is appreciated. Bony structures appear within normal limits for the patient's age. Impression: 1. Incidental findings as noted above. 2. No abnormal amounts of stool are seen. Diagnostic code #2
[2020-02-16] MEDS ORDERED: diphenhydrAMINE 50 MG/ML SDV IVPUSH ONE (15:45)
== END 2020-02-16 18:20 | disposition home or self-care (01) ==
LOC: JD.ED 14:26
DX: K59.01 Slow transit constipation (principal); R11.0 Nausea; Z23 Encounter for immunization
CPT/HCPCS: 74019; 81001; 90471; 90686; 96374; 96375; 99284; J1170; J1200; J2765; J7030; G0008

== ENCOUNTER 2020-02-22 20:57 | Emergency (ER) | payer BC ==
--- NOTE | 2020-02-22 21:17 | EDM.PDOC ---
ED HPI GENERAL MEDICAL PROBLEM - General Chief Complaint: Abdominal Pain Stated Complaint: PAIN IN THIGH Time Seen by Provider: 02/22/20 21:10 - History of Present Illness INITIAL COMMENTS - FREE TEXT/NARRATIVE: 34-year-old female returns to the emergency room with some left lower abdominal discomfort. Patient was seen here about a week ago with severe constipation 2 days after having a bilateral laparoscopic salpingectomy. She developed severe constipation after this and is doing better on MiraLAX and stool softeners. The patient is not having any fevers or chills no nausea no vomiting constipation is under control and no burning or frequency with urination. The pain seems to be from her mid abdomen and radiates laterally. She has 2 laparoscopic well- healing incision sites in this area. It seems to be worse with change in position. The patient does not think she is more active than she was. Patient denies any other symptoms at this point Left Lower Abdominal Pain Score (Numeric/FACES): 7 - Related Data Allergies Allergy/AdvReac Type Severity Reaction Status Date / Time No Known Allergies Allergy Verified 02/22/20 21:14 Home Meds: Home Meds . 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 They were discovered coincidentally from an ERCP that was done after gastric sleeve procedure was performed Genitourinary History: Reports: Other (See Below) Other Genitourinary History: hx of UTI x2 [employer] History: Reports: Endometrial Ablation Musculoskeletal History: Reports: None Neurological History: Reports: None Psychiatric History: Reports: None Endocrine/Metabolic History: Reports: None Hematologic History: Reports: None Immunologic History: Reports: None Oncologic (Cancer) History: Reports: None Dermatologic History: Reports: None - Infectious Disease History Infectious Disease History: Reports: Hepatitis A Other Infectious Disease History: Hx of Hep A, not currently positive - Past Surgical History HEENT Surgical History: Reports: Other (See Below) Other HEENT Surgeries/Procedures: tooth removed Cardiovascular Surgical History: Reports: None GI Surgical History: Reports: Appendectomy, Bariatric Procedure, Cholecystectomy Female Surgical History: Reports: Endometrial Ablation, Tubal Ligation Social & Family History - Family History Family Medical History: No Pertinent Family History - Caffeine Use Caffeine Use: Reports: Soda - Living Situation & Occupation Living situation: Reports: Occupation: Employed ED ROS GENERAL - Review of Systems Review Of Systems: See Below Constitutional: Denies: Fever, Chills Respiratory: Reports: No Symptoms Cardiovascular: Reports: No Symptoms GI/Abdominal: Reports: Abdominal Pain. Denies: Constipation, Diarrhea (No wall pain), Nausea, Vomiting : Reports: No Symptoms ED EXAM, GI/ABD - Physical Exam Exam: See Below General Appearance: Alert, No Apparent Distress Respiratory/Chest: No Respiratory Distress, Lungs Clear, Normal Breath Sounds Cardiovascular: Regular Rate, Rhythm, No Edema, No Murmur GI/Abdominal Exam: Normal Bowel Sounds, Soft, Other (Facial tenderness under the skin in the affected area left lower abdomen. No deep tenderness with palpation. No rigidity rebound or guarding noted. Incision sites look clean dry no redness no evidence of fluid accumulation at the incision sites.) Extremities: Normal Inspection, No Pedal Edema Neurological: Alert, Oriented, Normal Cognition Course - Vital Signs Last Recorded V/S: Last Vital Signs Temp 37.1 C 02/22/20 21:11 Pulse 78 02/22/20 21:11 Resp 16 02/22/20 21:11 BP 125/75 02/22/20 21:11 Pulse Ox 100 02/22/20 21:11 - Re-Assessments/Exams Free Text/Narrative Re-Assessment/Exam: 02/22/20 21:38 At this point I think the patient is doing fine with the exception of some incisional discomfort and she is developing some healing and this is causing some tenderness aggravated by any sort of movement. There is certainly no sign of infection or surgical complication at this time. I discussed this in detail with the patient is at an worried about her however at this point I think we should give it some time be careful with sudden movement and over time this should get better. The patient agrees. 02/22/20 21:43 Left without getting her discharge instructions Departure - Departure Time of Disposition: 21:39 Disposition: Home, Self-Care 01 Clinical Impression: Postoperative pain - Discharge Information Referrals: Stephanie Fregoso MD [Primary Care Provider] - Forms: ED Department Discharge Additional Instructions: Return to the emergency room if you develop any significant redness around her incision sites swelling or discomfort also return if you have any questions that are not answered. Push lots of fluids and follow your same bowel regimen. Follow-up with Dr. Nieves as scheduled sooner if possible. Sepsis Event Note (ED) - Evaluation Sepsis Screening Result: No Definite Risk - Focused Exam Vital Signs: Vital Signs Temp Pulse Resp BP Pulse Ox 02/22/20 21:11 37.1 C 78 16 125/75 100
== END 2020-02-22 21:43 | disposition home or self-care (01) ==
LOC: JD.ED 20:57
DX: G89.18 Other acute postprocedural pain (principal); R10.32 Left lower quadrant pain; Z90.722 Acquired absence of ovaries, bilateral; Z90.49 Acquired absence of other specified parts of digestive tract
CPT/HCPCS: 99282; 99283

== ENCOUNTER 2020-05-09 06:17 | Emergency (ER) | payer BC ==
--- NOTE | 2020-05-09 06:56 | EDM.PDOC ---
ED HPI GENERAL MEDICAL PROBLEM - General Chief Complaint: Headache Stated Complaint: MIGRAINE/VOMITING Time Seen by Provider: 05/09/20 06:56 Source of Information: Reports: Patient History Limitations: Reports: No Limitations - History of Present Illness INITIAL COMMENTS - FREE TEXT/NARRATIVE: 35-year-old female presents to the ED with a diffuse severe throbbing pounding headache. She is prone to migraines and gets them intermittently. She had a mild headache before she went to bed last night but awoke around 0130 hrs. this morning with a severe pounding bitemporal headache. Associated nausea and vomiting x6 since that time. Emesis is bilious without blood. Feels weak and some cramping in her lower extremities. Very sensitive to light and noise. Denies any possibility of . Onset: Today Onset Date: 05/09/20 Onset Time: 01:30 Duration: Hour(s):, Constant Location: Reports: Head ( bitemporal) Quality: Reports: Ache ( throbbing pounding headache.), Throbbing, Other (Pounding) Severity: Severe Improves with: Reports: None (8 out of 10) Worsens with: Reports: Other (Movement exposure to lights and loud noise makes it worse.) Context: Denies: Activity, Exercise, Lifting, Sick Contact, Trauma, Other Associated Symptoms: Reports: Headaches, Loss of Appetite, Nausea/Vomiting, We akness. 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 (see below) (Nothing will stay down.) Headache Pain Score (Numeric/FACES): 10 - Related Data Allergies Allergy/AdvReac Type Severity Reaction Status Date / Time No Known Allergies Allergy Verified 05/09/20 06:28 Home Meds: Home Meds Ketorolac [Toradol] 10 mg PO Q6H PRN #6 tab 05/09/20 [Rx] Metoclopramide HCl [Reglan] 10 mg PO Q6H PRN #6 tablet 05/09/20 [Rx] Past Medical History HEENT History: Reports: None Other HEENT History: wears glasses Cardiovascular History: Reports: None Respiratory History: Reports: None Gastrointestinal History: Reports: Pancreatitis Other Gastrointestinal History: chronic pancreatitis--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 Ablation Musculoskeletal History: Reports: None Neurological History: Reports: Migraines Psychiatric History: Reports: None Endocrine/Metabolic History: Reports: None Hematologic History: Reports: None Immunologic History: Reports: None Oncologic (Cancer) History: Reports: None Dermatologic History: Reports: None - Infectious Disease History Infectious Disease History: Reports: Hepatitis A Other Infectious Disease History: Hx of Hep A, not currently positive - Past Surgical History HEENT Surgical History: Reports: Other (See Below) Other HEENT Surgeries/Procedures: tooth removed Respiratory Surgical History: Reports: None GI Surgical History: Reports: Appendectomy, Bariatric Procedure, Cholecystectomy Female Surgical History: Reports: Endometrial Ablation, Salpingo- Oophorectomy, Tubal Ligation Endocrine Surgical History: Reports: None Musculoskeletal Surgical History: Reports: None Oncologic Surgical History: Reports: None Social & Family History - Family History Family Medical History: No Pertinent Family History - Tobacco Use Tobacco Use Status *Q: Never Tobacco User - Caffeine Use Caffeine Use: Reports: None - Recreational Drug Use Recreational Drug Use: No - Living Situation & Occupation Living situation: Reports: Occupation: Employed ED ROS GENERAL - Review of Systems Review Of Systems: See Below Constitutional: Reports: Malaise, Weakness, Fatigue, Decreased Appetite. Denies: Fever, Chills, Weight Loss HEENT: Reports: Glasses Respiratory: Reports: No Symptoms Cardiovascular: Reports: No Symptoms Endocrine: Reports: No Symptoms GI/Abdominal: Reports: Nausea, Vomiting : Reports: No Symptoms (Bilious emesis overnight x6), Urinary Retention Musculoskeletal: Reports: No Symptoms Skin: Reports: No Symptoms Neurological: Reports: Dizziness, Weakness, Other Psychiatric: Reports: No Symptoms (Some cramping in her lower extremities.) Hematologic/Lymphatic: Reports: No Symptoms Immunologic: Reports: No Symptoms - Physical Exam Exam: See Below Exam Limited By: No Limitations General Appearance: Alert, WD/WN, Mild Distress, Other (Examined in a darkened room. Temperature is 36.4 degrees heart rate 91 and sinus respiratory is 18 with O2 sats of 99% room air. BP 133/97.) Eye Exam: Bilateral Eye: Normal Inspection, PERRL Throat/Mouth: Normal Inspection, Normal Lips, Normal Oropharynx Head Exam: Atraumatic, Normocephalic Neck: Normal Inspection, Supple, Non-Tender, Full Range of Motion. No: Lymphadenopathy (L), Lymphadenopathy (R) Respiratory/Chest: No Respiratory Distress, Lungs Clear, Normal Breath Sounds, No Accessory Muscle Use, Chest Non-Tender Cardiovascular: Normal Peripheral Pulses, Regular Rate, Rhythm, No Edema, No Gallop, No Murmur, No Rub GI/Abdominal: Normal Bowel Sounds, Soft, Non-Tender, No Organomegaly, No Mass, Pelvis Stable Neuro Exam (Abbreviated): Alert, Oriented, CN II-XII Intact, Normal Cognition, No Motor/Sensory Deficits. No: Normal Gait Extremities: Normal Inspection, Normal Range of Motion, Non-Tender, No Pedal Edema Psychiatric: Normal Affect, Normal Mood Skin Exam: Warm, Dry, Intact, Normal Color, No Rash Course - Vital Signs Last Recorded V/S: Last Vital Signs Temp 36.4 C 05/09/20 08:31 Pulse 64 05/09/20 08:31 Resp 16 05/09/20 08:31 BP 107/64 05/09/20 08:31 Pulse Ox 99 05/09/20 08:31 - Orders/Labs/Meds Orders: Active Orders 24 hr Category Date Time Status Dextrose 5%-Lactated Ringers 1,000 ml Med 05/09/20 07:00 Active IV ASDIRECTED Ketorolac [Toradol] Med 05/09/20 07:00 Active 30 mg IVPUSH ONETIME Medication Orders Dextrose/Lactated Ringer's (Dextrose 5%-Lactated Ringers) 1,000 mls @ 999 mls/hr IV ASDIRECTED [facility] Last Admin: 05/09/20 07:22 Dose: 999 mls/hr Documented by: CARLEEN Ketorolac Tromethamine (Ketorolac 30 Mg/Ml Sdv) 30 mg IVPUSH ONETIME [facility] Last Admin: 05/09/20 07:22 Dose: 30 mg Documented by: CARLEEN Meds: Medications Generic Name Dose Route Start Last Admin Trade Name Freq PRN Reason Stop Dose Admin Dextrose/Lactated Ringer's 1,000 mls @ 999 mls/hr 05/09/20 07:00 05/09/20 07:22 Dextrose 5%-Lactated Ringers IV 999 mls/hr ASDIRECTED MARISABEL Administration Ketorolac Tromethamine 30 mg 05/09/20 07:00 05/09/20 07:22 Ketorolac 30 Mg/Ml Sdv IVPUSH 30 mg ONETIME MARISABEL Administration Discontinued Medications Generic Name Dose Route Start Last Admin Trade Name Marilin PRN Reason Stop Dose Admin Diphenhydramine HCl 25 mg 05/09/20 07:01 05/09/20 07:18 Diphenhydramine 50 Mg/Ml Sdv IVPUSH 05/09/20 07:02 25 mg ONETIME ONE Administration Hydromorphone HCl 0.5 mg 05/09/20 07:00 05/09/20 07:20 Hydromorphone 0.5 Mg/0.5 Ml Syringe IVPUSH 05/09/20 07:01 0.5 mg ONETIME ONE Administration Hydromorphone HCl 0.5 mg 05/09/20 08:03 05/09/20 08:10 Hydromorphone 0.5 Mg/0.5 Ml Syringe IVPUSH 05/09/20 08:04 0.5 mg ONETIME ONE Administration Metoclopramide HCl 7.5 mg 05/09/20 07:00 05/09/20 07:16 Metoclopramide 10 Mg/2 Ml Sdv IVPUSH 05/09/20 07:01 7.5 mg ONETIME ONE Administration - Radiology Interpretation Free Text/Narrative:: 35-year-old female presents to the ED with ID diffuse throbbing pounding headache that awoke her from sleep around 0130 hrs. this morning. Associated development of nausea and vomiting of bilious emesis. She is photophobic and phonophobic. These are characteristic signs of her migraine headaches that she gets once in a while. Headache is described as pulsating pounding and throbbing in both temporal aspects of the scalp. Neuro exam is normal. Plan IV D5 Ringer's lactate at open. Given Reglan 7.5 mg IV with Toradol 30 mg IV. Dilau did 0.5 mg IV and Benadryl 25 mg IV. - Re-Assessments/Exams Free Text/Narrative Re-Assessment/Exam: 05/09/20 08:03 patient reports her headache is still a 5 or 6 out of 10. Nausea is markedly improved. Will repeat Dilaudid 0.5 mg IV. 05/09/20 08:31 patient has completed a liter of IV fluids. Is feeling better. Rates her headache currently at a 3 out of 10. She will be tentatively discharged from the ED to home to sleep for a few hours. Departure - Departure Time of Disposition: 08:31 Disposition: Home, Self-Care 01 Condition: Fair Clinical Impression: Migraine Migraine headache Qualifiers: Migraine type: without aura Status migrainosus presence: without status migrainosus Intractability: not intractable Qualified Code(s): G43.009 - Migraine without aura, not intractable, without status migrainosus - Discharge Information *PRESCRIPTION DRUG MONITORING PROGRAM REVIEWED*: Not Applicable *COPY OF PRESCRIPTION DRUG MONITORING REPORT IN PATIENT DELFINA: Not Applicable Prescriptions: Metoclopramide HCl [Reglan] 10 mg PO Q6H PRN #6 tablet PRN Reason: Migraine headache relief Ketorolac [Toradol] 10 mg PO Q6H PRN #6 tab PRN Reason: Migraine headache relief Instructions: Migraine Headache, [id number] Referrals: Samira Brink NP [Primary Care Provider] - Forms: ED Department Discharge Additional Instructions: Evaluation in the emergency room this morning in regards to development of a 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 Headache is characteristic of what you have experienced in the past with migraine headaches. You were treated with intravenous fluids and given medications Dilaudid 0.5 mg IV with Reglan 7.5 mg IV for nausea vomiting relief. Also small dose of Benadryl 25 mg IV and Toradol 30 mg IV for headache relief. Suggest home to sleep for the next 3 to 4 hours and then resume regular diet. Suggest monitoring diet for dietary triggers which cause 85% of migraine headaches. One of the most common ones is nitrates which is found and smoked meats. This means pepperoni, salami, summer sausage etc. Many of these ingredients are found on meat lovers pizza which can precipitate a migraine. MSG or monosodium glutamate is added to Arabic food to make it more salty. Is often found soups like chicken noodle soup to make it salty etc. Is also found in junk food such as Cheetos cheese ease and other chips etc. High-dose chocolate which would mean dark chocolate such as her cheese chocolate bar might precipitate a migraine. Red dami containing high doses of tear is seen and also aged cheese like block cheese that she would actually have to cut up not craft slices. Red dyes added to things like Gatorade Powerade and fruit juices such as cranberry etc. may also precipitate migraine headaches. I will send her home with a prescription for 10 mg Toradol tablets with 10 mg of Reglan tablet to be taken 1 of each at onset of severe headache in the hopes of aborting the headache. 6 tablets of each were given. Sepsis Event Note (ED) - Evaluation Sepsis Screening Result: No Definite Risk - Focused Exam Vital Signs: Vital Signs Temp Pulse Resp BP Pulse Ox 05/09/20 08:31 36.4 C 64 16 107/64 99 05/09/20 07:26 36.6 C 72 16 125/79 97 05/09/20 06:24 36.4 C 91 18 133/97 H 99 - My Orders Last 24 Hours: My Active Orders 05/09/20 07:00 Dextrose 5%-Lactated Ringers 1,000 ml IV ASDIRECTED Ketorolac [Toradol] 30 mg IVPUSH ONETIME - Assessment/Plan Last 24 Hours: My Active Orders 05/09/20 07:00 Dextrose 5%-Lactated Ringers 1,000 ml IV ASDIRECTED Ketorolac [Toradol] 30 mg IVPUSH ONETIME
[2020-05-09] MEDS ORDERED: HYDROmorphone 0.5 MG/0.5 ML Syringe IVPUSH ONE ×2 (07:00→08:03)
[2020-05-09] MEDS ORDERED: Ketorolac 30 MG/ML SDV IVPUSH SCH (07:00)
[2020-05-09] MEDS ORDERED: Metoclopramide 10 MG/2 ML SDV IVPUSH ONE (07:00)
[2020-05-09] MEDS ORDERED: Dextrose 5%-Lactated Ringers 1,000 ML IV SCH (07:00)
[2020-05-09] MEDS ORDERED: diphenhydrAMINE 50 MG/ML SDV IVPUSH ONE (07:01)
== END 2020-05-09 09:04 | disposition home or self-care (01) ==
LOC: JD.ED 06:17
DX: G43.009 Migraine without aura, not intractable, without status migrainosus (principal)
CPT/HCPCS: 96374; 96375; 96376; 99283; J1170; J1200; J1885; J2765; J7121; 99284

== ENCOUNTER 2020-05-18 17:41 | Emergency (ER) | payer BC ==
[2020-05-18] MEDS ORDERED: Ondansetron 4 MG/2 ML SDV IVPUSH ONE ×2 (18:04→19:23)
[2020-05-18] MEDS ORDERED: HYDROmorphone 1 MG/ML Syringe IVPUSH STA (18:04)
--- NOTE | 2020-05-18 18:09 | EDM.PDOC ---
ED HPI GENERAL MEDICAL PROBLEM - General Chief Complaint: Abdominal Pain Stated Complaint: ABD PAIN Time Seen by Provider: 05/18/20 17:51 Source of Information: Reports: Patient, RN Notes Reviewed History Limitations: Reports: No Limitations - History of Present Illness INITIAL COMMENTS - FREE TEXT/NARRATIVE: Patient is a 35-year-old female who presents to the ED for the evaluation of her abdominal pain. Patient notes that she has a history of endometriosis, and has had internal bleeding in her fallopian tubes due to this. She does note that she is had to have emergency surgery at times for this. Notes that for the last 2 days, she has had low pelvic pain, that feels very sharp and stabbing, then cramping and some tightness associated with it. Her CONTOUR STITCHER is Dr. Fregoso and she was told that she does have some scar tissue on her uterus from the endometrial surgeries. Also reports a remote history of pancreatitis from time to time, due to 2 tumors being removed 5 years ago. She has had some nausea and vomiting, and she notes that she has baseline diarrhea so that does not seem be worse than normal. She is not complaining of any fevers, but notes that she is chilled pretty much all the time as well. She further denies any cough or shortness of breath or any sort of chest pain. She has been using 800 mg ibuprofen and 500 mg Tylenol in alternating fashion every 6 hours, she believes that she is just taking "too much" [id number] pain medications. Patient adamantly denies any chance of at today's visit. Patient's regular provider is Samira Brink. abdomen Pain Score (Numeric/FACES): 9 - Related Data Allergies Allergy/AdvReac Type Severity Reaction Status Date / Time No Known Allergies Allergy Verified 05/18/20 17:56 Home Meds: Home Meds Ketorolac [Toradol] 10 mg PO Q6H PRN #6 tab 05/09/20 [Rx] Metoclopramide HCl [Reglan] 10 mg PO Q6H PRN #6 tablet 05/09/20 [Rx] Acetaminophen/oxyCODONE [Percocet 325-5 MG] 1 each PO Q6H PRN #20 tab 05/18/20 [Rx] Ondansetron [Zofran ODT] 4 mg PO Q8H PRN #15 tab.dis 05/18/20 [Rx] Past Medical History HEENT History: Reports: None Other HEENT History: wears glasses Cardiovascular History: Reports: None Respiratory History: Reports: None Gastrointestinal History: Reports: Pancreatitis Other Gastrointestinal History: chronic pancreatitis--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 They were discovered coincidentally from an ERCP that was done after gastric sleeve procedure was performed Genitourinary History: Reports: Other (See Below) Other Genitourinary History: hx of UTI x2 CONTOUR STITCHER History: Reports: Endometrial Ablation Musculoskeletal History: Reports: None Neurological History: Reports: Migraines Psychiatric History: Reports: None Endocrine/Metabolic History: Reports: None Hematologic History: Reports: None Immunologic History: Reports: None Oncologic (Cancer) History: Reports: None Dermatologic History: Reports: None - Infectious Disease History Infectious Disease History: Reports: Hepatitis A Other Infectious Disease History: Hx of Hep A, not currently positive - Past Surgical History Head Surgeries/Procedures: Reports: None HEENT Surgical History: Reports: Other (See Below) Other HEENT Surgeries/Procedures: tooth removed Cardiovascular Surgical History: Reports: None Respiratory Surgical History: Reports: None GI Surgical History: Reports: Appendectomy, Bariatric Procedure, Cholecystectomy Female Surgical History: Reports: Endometrial Ablation, Salpingo- Oophorectomy, Tubal Ligation Endocrine Surgical History: Reports: None Neurological Surgical History: Reports: None Musculoskeletal Surgical History: Reports: None Oncologic Surgical History: Reports: None Dermatological Surgical History: Reports: None Social & Family History - Family History Family Medical History: No Pertinent Family History - Tobacco Use Tobacco Use Status *Q: Never Tobacco User - Caffeine Use Caffeine Use: Reports: None - Recreational Drug Use Recreational Drug Use: No - Living Situation & Occupation Living situation: Reports: Occupation: Employed ED ROS GENERAL - Review of Systems Review Of Systems: Comprehensive ROS is negative, except as noted in HPI. ED EXAM, GI/ABD - Physical Exam Exam: See Below Exam Limited By: No Limitations General Appearance: Alert, WD/WN, No Apparent Distress Respiratory/Chest: No Respiratory Distress, Lungs Clear, Normal Breath Sounds, No Accessory Muscle Use, Chest Non-Tender Cardiovascular: Normal Peripheral Pulses, Regular Rate, Rhythm, No Edema GI/Abdominal Exam: Normal Bowel Sounds, Soft, No Distention, No Mass, Tender (suprapubic/pelvic and into LLQ mainly) Extremities: Normal Inspection, Normal Capillary Refill Neurological: Alert, Oriented, Normal Cognition, No Motor/Sensory Deficits Psychiatric: Normal Affect, Normal Mood Skin Exam: Warm, Dry, Intact, Normal Color, No Rash Course - Vital Signs Last Recorded V/S: Last Vital Signs Temp 97.5 F 05/18/20 17:52 Pulse 88 05/18/20 17:52 Resp 18 05/18/20 17:52 BP 138/86 05/18/20 17:52 Pulse Ox 98 05/18/20 17:52 - Orders/Labs/Meds Orders: Active Orders 24 hr Category Date Time Status Abdomen Pelvis w Cont [CT] Stat Exams 05/18/20 18:04 Ordered Acetaminophen/oxyCODONE [Percocet 325-5 MG] Med 05/18/20 20:59 Once 2 tab PO ONETIME ONE Sodium Chloride 0.9% [Normal Saline] 1,000 ml Med 05/18/20 18:15 Ordered IV ASDIRECTED Sodium Chloride 0.9% [Saline Flush] Med 05/18/20 20:00 Active 10 ml FLUSH ASDIRECTED Medication Orders Sodium Chloride (Normal Saline) 1,000 mls @ 999 mls/hr IV ASDIRECTED MARISABEL Last Admin: 05/18/20 18:44 Dose: 999 mls/hr Documented by: GEGE Oxycodone/Acetaminophen (Acetaminophen/Oxycodone 325-5 Mg Tab) 2 tab PO ONETIME ONE Stop: 05/18/20 21:00 Sodium Chloride (Sodium Chloride 0.9% 10 Ml Syringe) 10 ml FLUSH ASDIRECTED MARISABEL Last Admin: 05/18/20 20:30 Dose: 10 ml Documented by: ADRIAN Labs: Laboratory Tests 05/18/20 05/18/20 05/18/20 Range/Units 18:20 18:20 19:54 WBC 7.57 (3.98-10.04) K/mm3 RBC 4.73 (3.98-5.22) M/mm3 Hgb 12.2 (11.2-15.7) gm/dl Hct 38.4 (34.1-44.9) % MCV 81.2 (79.4-94.8) fl MCH 25.8 (25.6-32.2) pg MCHC 31.8 L (32.2-35.5) g/dl RDW Std Deviation 40.9 (36.4-46.3) fL Plt Count 242 (182-369) K/mm3 MPV 10.6 (9.4-12.3) fl Neutrophils % (Manual) 64 H (40-60) % Band Neutrophils % 0 (0-10) % Lymphocytes % (Manual) 31 (20-40) % Atypical Lymphs % 0 % Monocytes % (Manual) 5 (2-10) % Eosinophils % (Manual) 0 L (0.7-5.8) % Basophils % (Manual) 0 L (0.1-1.2) Platelet Estimate Adequate RBC Morph Comment Normal Sodium 142 (136-145) mEq/L Potassium 3.5 (3.5-5.1) mEq/L Chloride 105 (98-107) mEq/L Carbon Dioxide 28 (21-32) mEq/L Anion Gap 12.5 (5-15) BUN 14 (7-18) mg/dL Creatinine 0.9 (0.55-1.02) mg/dL Est Cr Clr Drug Dosing 87.17 mL/min Estimated GFR (MDRD) > 60 (>60) mL/min BUN/Creatinine Ratio 15.6 (14-18) Glucose 131 H (74-106) mg/dL Calcium 8.7 (8.5-10.1) mg/dL Total Bilirubin 0.3 (0.2-1.0) mg/dL AST 13 L (15-37) U/L ALT 22 (14-59) U/L Alkaline Phosphatase 72 (46-116) U/L Total Protein 7.4 (6.4-8.2) g/dl Albumin 3.8 (3.4-5.0) g/dl Globulin 3.6 gm/dL Albumin/Globulin Ratio 1.1 (1-2) Lipase 302 (73-393) U/L Urine Color Yellow (Yellow) Urine Appearance Clear (Clear) Urine pH 7.0 (5.0-8.0) Ur Specific [place] 1.025 (1.005-1.030) Urine Protein Negative (Negative) Urine Glucose (UA) Negative (Negative) Urine Ketones Trace H (Negative) Urine Occult Blood Negative (Negative) Urine Nitrite Negative (Negative) Urine Bilirubin Negative (Negative) Urine Urobilinogen 2.0 H (0.2-1.0) Ur Leukocyte Esterase Negative (Negative) Urine RBC 0-5 (0-5) /hpf Urine WBC 0-5 (0-5) /hpf Ur Squamous Epith Cells 0-5 (0-5) /hpf Urine Bacteria Few (FEW) /hpf Urine Mucus Few (FEW) /hpf Meds: Medications Generic Name Dose Route Start Last Admin Trade Name Marilin PRN Reason Stop Dose Admin Sodium Chloride 1,000 mls @ 999 mls/hr 05/18/20 18:15 05/18/20 18:44 Normal Saline IV 999 mls/hr ASDIRECTED MARISABEL Administration Oxycodone/Acetaminophen 2 tab 05/18/20 20:59 Acetaminophen/Oxycodone 325-5 Mg Tab PO 05/18/20 21:00 ONETIME ONE Sodium Chloride 10 ml 05/18/20 20:00 05/18/20 20:30 Sodium Chloride 0.9% 10 Ml Syringe FLUSH 10 ml ASDIRECTED MARISABEL Administration Discontinued Medications Generic Name Dose Route Start Last Admin Trade Name Marilin PRN Reason Stop Dose Admin Diatrizoate Meglum/Diatrizoate Sod 120 ml 05/18/20 19:58 05/18/20 20:30 Diatrizoate Meglumine/Diatrizoate Sodium 37% 120 Ml Bottle PO 05/18/20 19:59 90 ml ONETIME ONE Administration Diphenhydramine HCl 25 mg 05/18/20 18:49 05/18/20 18:53 Diphenhydramine 50 Mg/Ml Sdv IVPUSH 05/18/20 18:50 25 mg ONETIME ONE Administration Fentanyl 50 mcg 05/18/20 19:46 05/18/20 19:55 Fentanyl 100 Mcg/2 Ml Sdv IVPUSH 05/18/20 19:47 50 mcg ONETIME ONE Administration Hydromorphone HCl 1 mg 05/18/20 18:04 05/18/20 18:44 Hydromorphone 1 Mg/Ml Syringe IVPUSH 05/18/20 18:05 1 mg ONETIME STA Administration Iopamidol 100 ml 05/18/20 19:58 05/18/20 20:30 Iopamidol 612 Mg/Ml 100 Ml Bottle IVPUSH 05/18/20 19:59 100 ml ONETIME ONE Administration Ondansetron HCl 4 mg 05/18/20 18:04 05/18/20 18:44 Ondansetron 4 Mg/2 Ml Sdv IVPUSH 05/18/20 18:05 4 mg ONETIME ONE Administration Ondansetron HCl 4 mg 05/18/20 19:23 05/18/20 19:29 Ondansetron 4 Mg/2 Ml Sdv IVPUSH 05/18/20 19:24 4 mg ONETIME ONE Administration - Re-Assessments/Exams Free Text/Narrative Re-Assessment/Exam: 05/18/20 18:09 Patient presents to the ED for her low pelvic pain. We will go ahead and get some baseline labs, get IV started with some IV fluids, pain meds, nausea meds, and get abdomen pelvis CT with IV and oral contrast for ongoing management. 05/18/20 19:16 Labs have been obtained, and are unremarkable at today's visit. Patient did tell nursing staff that she gets itchy when she gets IV Dilaudid, so she was requesting Benadryl, I did put this order in for ongoing management. 05/18/20 20:52 UA is unremarkable for infection. CT has been performed, question mild mucosal thickening in the distal stomach findings could reflect gastritis there is nonspecific/nonobstructive intestinal gas pattern no evidence of hydronephrosis, uterus was normal, there was no adnexal mass. There is a 21 mm irregular cystic lesion in the right ovary consistent with a corpus luteum cyst. There is no other pelvic adenopathy or free fluid. We will go ahead and go over the results with the patient and come up with a management plan of care for her. Departure - Departure Time of Disposition: 21:00 Disposition: Home, Self-Care 01 Condition: Good Clinical Impression: Corpus luteum cyst of right ovary, Pelvic pain - Discharge Information *PRESCRIPTION DRUG MONITORING PROGRAM REVIEWED*: Yes *COPY OF PRESCRIPTION DRUG MONITORING REPORT IN PATIENT DELFINA: No Prescriptions: Acetaminophen/oxyCODONE [Percocet 325-5 MG] 1 each PO Q6H PRN #20 tab PRN Reason: Pain Ondansetron [Zofran ODT] 4 mg PO Q8H PRN #15 tab.dis PRN Reason: Nausea Instructions: Pelvic Pain, Female, [id number], Ovarian Cyst, [id number] Referrals: Stephanie Fregoso MD [Physician] - 05/23/20 (follow up early next week) Forms: ED Department Discharge Additional Instructions: You were seen in the ER for your pelvic pain. Labs were unremarkable at today's visit. CT performed demonstrated a 21 mm irregular cystic lesion within the right ovary consistent with a corpus luteum cyst. There was no other free fluid within your pelvis to suggest internal bleeding. You were given a prescription for a strong pain medication, oxycodone/acetaminophen 5/325 mg, please take 1 tab every 6 hours as needed for pain not relieved by Tylenol or ibuprofen alone. Please note this medication does contain Tylenol in it, so do not take more than 4000 mg in a 24-hour time span. These medications can be addictive, so please take as few as possible to achieve adequate pain control. These meds can also be quite constipating, recommend that you increase your oral fluid intake and take a stool softener like MiraLAX while taking these medications. Do not drive while taking this medication. This medication was electronically sent to the [facility] located near [facility]. Your case was discussed with your CONTOUR STITCHER, Dr. Fregoso, she states to call her clinic tomorrow 05/19/20, to request an appointment for early next week. She states she will work you into her schedule. Please do not hesitate to return to the ER at any time if your symptoms change or worsen. Sepsis Event Note (ED) - Evaluation Sepsis Screening Result: No Definite Risk - Focused Exam Vital Signs: Vital Signs Temp Pulse Resp BP Pulse Ox 05/18/20 17:52 97.5 F 88 18 138/86 98 - My Orders Last 24 Hours: My Active Orders 05/18/20 18:04 Abdomen Pelvis w Cont [CT] Stat 05/18/20 18:15 Sodium Chloride 0.9% [Normal Saline] 1,000 ml IV ASDIRECTED 05/18/20 20:00 Sodium Chloride 0.9% [Saline Flush] 10 ml FLUSH ASDIRECTED 05/18/20 20:59 Acetaminophen/oxyCODONE [Percocet 325-5 MG] 2 tab PO ONETIME ONE - Assessment/Plan Last 24 Hours: My Active Orders 05/18/20 18:04 Abdomen Pelvis w Cont [CT] Stat 05/18/20 18:15 Sodium Chloride 0.9% [Normal Saline] 1,000 ml IV ASDIRECTED 05/18/20 20:00 Sodium Chloride 0.9% [Saline Flush] 10 ml FLUSH ASDIRECTED 05/18/20 20:59 Acetaminophen/oxyCODONE [Percocet 325-5 MG] 2 tab PO ONETIME ONE
[2020-05-18] MEDS ORDERED: Sodium Chloride 0.9% 1,000 ML IV SCH (18:15)
[2020-05-18] MEDS ORDERED: diphenhydrAMINE 50 MG/ML SDV IVPUSH ONE (18:49)
[2020-05-18] MEDS ORDERED: fentaNYL 100 MCG/2 ML SDV IVPUSH ONE (19:46)
[2020-05-18] MEDS ORDERED: Iopamidol 612 MG/ML 100 ML Bottle IVPUSH ONE (19:58)
[2020-05-18] MEDS ORDERED: Diatrizoate Meglumine/Diatrizoate Sodium 37% 120 ML Bottle PO ONE (19:58)
[2020-05-18] MEDS ORDERED: Sodium Chloride 0.9% 10 ML Syringe FLUSH SCH (20:00)
[2020-05-18] MEDS ORDERED: Acetaminophen/oxyCODONE 325-5 MG Tab PO ONE (20:59)
--- NOTE | 2020-05-19 08:53 | CT ---
CT abdomen and pelvis Technique: Multiple axial sections were obtained from above the dome of the diaphragm inferiorly through the pubic symphysis. Intravenous and oral contrast was utilized. Delayed images were also obtained through the abdomen and pelvis. Reconstructed coronal and sagittal images were obtained. Comparison: Prior CT abdomen and pelvis study of 02/13/20. Findings: Visualized lung bases show nothing acute. Partially visualized bilateral breast prostheses are noted. Liver contains no focal parenchymal abnormality. Spleen appears within normal limits. Adrenal glands show no nodule. Pancreas appears within normal limits. Surgical clips are seen from prior cholecystectomy. Questionable mucosal thickening is present within the distal stomach. Kidneys show symmetric contrast enhancement. No hydronephrosis or mass is seen. Delayed images show contrast within the ureters as well as within the bladder. Abdominal aorta shows no aneurysm. No retroperitoneal adenopathy or mesenteric abnormalities are seen. Previous surgery is noted within the tip of the cecum. Appendix is not visualized. No pelvic mass or adenopathy is seen. Small physiologic cyst is noted within the right ovary. No free fluid or inflammatory change is appreciated. Bone window settings were reviewed which show no acute osseous finding. Impression: 1. Questionable mucosal thickening within the distal stomach. Difficult to exclude mild gastritis. Please correlate with the patient's symptoms. This could also relate to normal variant. 2. Nothing acute is otherwise seen on CT study of the abdomen and pelvis. Diagnostic code #2 I agree with preliminary report from [facility], finalized on 05/18/20, 9:49 PM CDT
== END 2020-05-18 21:22 | disposition home or self-care (01) ==
LOC: JD.ED 17:41
DX: N83.11 Corpus luteum cyst of right ovary (principal); Z98.890 Other specified postprocedural states
CPT/HCPCS: 36415; 74177; 80053; 81001; 83690; 85007; 85027; 96374; 96375; 96376; 99284; A9270; J1170; J1200; J2405; J3010; J7030; Q9963; Q9967

== ENCOUNTER 2020-05-29 03:54 | Emergency (ER) | payer BC ==
[2020-05-29] MEDS ORDERED: Lactated Ringers 1,000 ML IV ONE (04:24)
[2020-05-29] MEDS ORDERED: Ondansetron 4 MG/2 ML SDV IVPUSH ONE ×2 (04:25→08:05)
[2020-05-29] MEDS ORDERED: diphenhydrAMINE 50 MG/ML SDV IVPUSH ONE (04:25)
[2020-05-29] MEDS ORDERED: LORazepam 2 MG/ML SDV IVPUSH ONE ×2 (04:26→05:42)
--- NOTE | 2020-05-29 05:04 | EDM.PDOC ---
<Joni Jacob - Last Filed: 05/29/20 06:53> ED HPI GENERAL MEDICAL PROBLEM - General Chief Complaint: Gastrointestinal Problem Stated Complaint: VOMITING, HEADACHE Time Seen by Provider: 05/29/20 04:01 Source of Information: Reports: Patient History Limitations: Reports: No Limitations - History of Present Illness INITIAL COMMENTS - FREE TEXT/NARRATIVE: This is a 35-year-old female. She has been here several times in the last 14 days due to belly pain and headaches and vomiting. She is due to have a hysterectomy on the of this month due to bleeding in the uterus. Apparently yesterday she was outside got a very minimal sunburn but began to have some nausea and vomiting. She is unable to keep any food or water down she took some Reglan that did not help and so she comes to the ER this morning she also complains of a headache as well. In the ER she did have some active vomiting. She denies any fever or chills denies any acute symptoms. He was noted to have a ordered drug patch on her right upper extremity. When I asked her about it she is somewhat reluctant to tell me exactly why other than there were some drugs in the car of another person that she happened to be riding in. Looking at her [place] drug monitoring spreadsheet she is gotten 52 pain medications in the last 10 days from 3 different providers as well as some temazepam 30 tablets at 30 mg on the fifth of this month. Headache Pain Score (Numeric/FACES): 8 - Related Data Allergies Allergy/AdvReac Type Severity Reaction Status Date / Time No Known Allergies Allergy Verified 05/18/20 17:56 Home Meds: Home Meds Ketorolac [Toradol] 10 mg PO Q6H PRN #6 tab 05/09/20 [Rx] Metoclopramide HCl [Reglan] 10 mg PO Q6H PRN #6 tablet 05/09/20 [Rx] Acetaminophen/oxyCODONE [Percocet 325-5 MG] 1 each PO Q6H PRN #20 tab 05/18/20 [Rx] Ondansetron [Zofran ODT] 4 mg PO Q8H PRN #15 tab.dis 05/18/20 [Rx] Dicyclomine [Bentyl] 20 mg PO QIDACANDBED #20 tab 05/29/20 [Rx] Ondansetron [Zofran ODT] 4 mg PO Q6H PRN #12 tab.dis 05/29/20 [Rx] Past Medical History HEENT History: Reports: None Other HEENT History: wears glasses Cardiovascular History: Reports: None Respiratory History: Reports: None Gastrointestinal History: Reports: Pancreatitis Other Gastrointestinal History: chronic pancreatitis--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 They were discovered coincidentally from an ERCP that was done after gastric sleeve procedure was performed Genitourinary History: Reports: Other (See Below) Other Genitourinary History: hx of UTI x2 [employer]ING History: Reports: Endometrial Ablation Musculoskeletal History: Reports: None Neurological History: Reports: Migraines Psychiatric History: Reports: None Endocrine/Metabolic History: Reports: None Hematologic History: Reports: None Immunologic History: Reports: None Oncologic (Cancer) History: Reports: None Dermatologic History: Reports: None - Infectious Disease History Infectious Disease History: Reports: Hepatitis A Other Infectious Disease History: Hx of Hep A, not currently positive - Past Surgical History Head Surgeries/Procedures: Reports: None HEENT Surgical History: Reports: Other (See Below) Other HEENT Surgeries/Procedures: tooth removed Cardiovascular Surgical History: Reports: None Respiratory Surgical History: Reports: None GI Surgical History: Reports: Appendectomy, Bariatric Procedure, Cholecystectomy Female Surgical History: Reports: Endometrial Ablation, Salpingo- Oophorectomy, Tubal Ligation Endocrine Surgical History: Reports: None Neurological Surgical History: Reports: None Musculoskeletal Surgical History: Reports: None Oncologic Surgical History: Reports: None Dermatological Surgical History: Reports: None Social & Family History - Family History Family Medical History: No Pertinent Family History - Tobacco Use Tobacco Use Status *Q: Never Tobacco User - Caffeine Use Caffeine Use: Reports: None - Recreational Drug Use Recreational Drug Use: No - Living Situation & Occupation Living situation: Reports: Occupation: Employed ED ROS GENERAL - Review of Systems Review Of Systems: See Below Constitutional: Denies: Fever, Chills HEENT: Reports: No Symptoms Respiratory: Reports: No Symptoms Cardiovascular: Reports: No Symptoms Endocrine: Reports: No Symptoms GI/Abdominal: Reports: Abdominal Pain, Nausea, Vomiting : Reports: No Symptoms Musculoskeletal: Reports: No Symptoms Skin: Reports: No Symptoms Neurological: Reports: No Symptoms Psychiatric: Reports: Anxiety Hematologic/Lymphatic: Reports: No Symptoms ED EXAM, GI/ABD - Physical Exam Exam: See Below Exam Limited By: No Limitations General Appearance: Alert, WD/WN, Anxious Eyes: Bilateral: Normal Appearance Ears: Normal External Exam Nose: Normal Inspection Throat/Mouth: Normal Lips, Normal Voice, No Airway Compromise Head: Normocephalic Neck: Supple Respiratory/Chest: No Respiratory Distress, Lungs Clear, Normal Breath Sounds Cardiovascular: Regular Rate, Rhythm, No Murmur GI/Abdominal Exam: Soft, Other (Planes of tenderness across the lower abdomen on palpation but there is no masses no rebound, her upper abdomen is nontender) Back Exam: Normal Inspection, Full Range of Motion Extremities: Normal Inspection, Normal Range of Motion, Other (Please note that she has old track ramachandran in the left antecubital fossa that she states is us trying to start IVs in that area.) Neurological: Alert, Oriented Psychiatric: Anxious Skin Exam: Warm, Dry Course - Radiology Interpretation Free Text/Narrative:: Sound of the pelvis shows normal structures and a small fluid collection in the uterine cavity but no other acute findings. The pelvis is free of any fluid or adnexal masses. - Re-Assessments/Exams Free Text/Narrative Re-Assessment/Exam: 05/29/20 05:45 After noticing the drug patch the patient finally let me know that she does cocaine though the last time was about 4 weeks ago. The ramachandran in her left antecubital area she says is related to us trying to start IVs on her but they look more like old track ramachandran. She is under felony class be charged for possession of cocaine with intent to deliver 27 g of cocaine up in [facility]). Her court date is June 16. Her drug patch that is court ordered she says is related to the use of cocaine. I explained to her I am more than happy to ease up her nausea and vomiting but she already has 52 pain medications over the last 10 days at home ([place] Drug Monitoring site) and I will not be providing any further pain medication for her. I will be more than willing to help her in any other way. 05/29/20 06:40 Patient appears to be sleeping and her nausea and vomiting appear to be resolved at this time. I spoke to the patient regarding the ultrasound results that there is nothing there that would suggest causing pain. I know that she has a history of endometriosis and that is obviously not seen on ultrasound. Departure - Departure Disposition: Home, Self-Care 01 Condition: Fair Clinical Impression: Abdominal cramps, Lower abdominal pain Nausea and vomiting Qualifiers: Vomiting type: unspecified Vomiting Intractability: non-intractable Qualified Code(s): R11.2 - Nausea with vomiting, unspecified - Discharge Information *PRESCRIPTION DRUG MONITORING PROGRAM REVIEWED*: Not Applicable *COPY OF PRESCRIPTION DRUG MONITORING REPORT IN PATIENT DELFINA: Not Applicable Prescriptions: Dicyclomine [Bentyl] 20 mg PO QIDACANDBED #20 tab Ondansetron [Zofran ODT] 4 mg PO Q6H PRN #12 tab.dis PRN Reason: Vomiting Instructions: Nausea and Vomiting, Adult, [id number] Referrals: Samira Brink NP [Primary Care Provider] - Stephanie Fregoso MD [Physician] - Forms: ED Department Discharge, ED Return to Work/School Form Additional Instructions: Use the Zofran as needed for nausea, use the Reglan that you have at home for nausea, use the Bentyl as needed for the abdominal cramps and pain, rest and sleep is much as possible today, follow-up with Dr. Nieves on the for your hysterectomy. Return to the ER if needed. Sepsis Event Note (ED) - Evaluation Sepsis Screening Result: No Definite Risk <Durga Anton - Last Filed: 05/29/20 08:20> Course - Vital Signs Last Recorded V/S: Last Vital Signs Temp 36.9 C 05/29/20 08:13 Pulse 89 05/29/20 08:13 Resp 12 05/29/20 08:13 BP 123/88 05/29/20 08:13 Pulse Ox 99 05/29/20 08:13 - Orders/Labs/Meds Orders: Active Orders 24 hr Category Date Time Status Transvaginal Non OB [US] Stat Exams 05/29/20 04:27 Taken Labs: Laboratory Tests 05/29/20 05/29/20 Range/Units 05:12 05:12 WBC 14.48 H (3.98-10.04) K/mm3 RBC 5.62 H (3.98-5.22) M/mm3 Hgb 14.6 D (11.2-15.7) gm/dl Hct 43.8 (34.1-44.9) % MCV 77.9 L D (79.4-94.8) fl MCH 26.0 (25.6-32.2) pg MCHC 33.3 (32.2-35.5) g/dl RDW Std Deviation 39.5 (36.4-46.3) fL Plt Count 307 (182-369) K/mm3 MPV 10.3 (9.4-12.3) fl Neut % (Auto) 88.4 H (34.0-71.1) % Lymph % (Auto) 7.8 L (19.3-51.7) % [place] % (Auto) 3.6 L (4.7-12.5) % Eos % (Auto) 0 L (0.7-5.8) Baso % (Auto) 0.1 (0.1-1.2) % Neut # (Auto) 12.79 H (1.56-6.13) K/mm3 Lymph # (Auto) 1.13 L (1.18-3.74) K/mm3 [place] # (Auto) 0.52 H (0.24-0.36) K/mm3 Eos # (Auto) 0.00 L (0.04-0.36) K/mm3 Baso # (Auto) 0.02 (0.01-0.08) K/mm3 Manual Slide Review Abnormal smear Sodium 147 H (136-145) mEq/L Potassium 3.7 (3.5-5.1) mEq/L Chloride 104 (98-107) mEq/L Carbon Dioxide 23 (21-32) mEq/L Anion Gap 23.7 H (5-15) BUN 9 (7-18) mg/dL Creatinine 1.1 H (0.55-1.02) mg/dL Est Cr Clr Drug Dosing 73.89 mL/min Estimated GFR (MDRD) 56 (>60) mL/min BUN/Creatinine Ratio 8.2 L (14-18) Glucose 119 H (74-106) mg/dL Calcium 9.6 (8.5-10.1) mg/dL Total Bilirubin 0.5 (0.2-1.0) mg/dL AST 17 (15-37) U/L ALT 36 (14-59) U/L Alkaline Phosphatase 86 (46-116) U/L Total Protein 8.4 H (6.4-8.2) g/dl Albumin 4.4 (3.4-5.0) g/dl Globulin 4.0 gm/dL Albumin/Globulin Ratio 1.1 (1-2) Lipase 242 (73-393) U/L Meds: Medications Discontinued Medications Generic Name Dose Route Start Last Admin Trade Name Freq PRN Reason Stop Dose Admin Dicyclomine HCl 20 mg 05/29/20 05:50 05/29/20 06:00 Dicyclomine 20 Mg/2 Ml Sdv IM 05/29/20 05:51 20 mg ONETIME ONE Administration Diphenhydramine HCl 25 mg 05/29/20 04:25 05/29/20 05:01 Diphenhydramine 50 Mg/Ml Sdv IVPUSH 05/29/20 04:26 25 mg ONETIME ONE Administration Lactated Ringer's 1,000 mls @ 1,000 mls/hr 05/29/20 04:24 05/29/20 05:00 Ringers, Lactated IV 05/29/20 05:23 1,000 mls/hr .BOLUS ONE Administration Lorazepam 1 mg 05/29/20 04:26 05/29/20 05:06 Lorazepam 2 Mg/Ml Sdv IVPUSH 05/29/20 04:27 1 mg ONETIME ONE Administration Lorazepam 1 mg 05/29/20 05:42 05/29/20 05:54 Lorazepam 2 Mg/Ml Sdv IVPUSH 05/29/20 05:43 1 mg ONETIME ONE Administration Metoclopramide HCl 5 mg 05/29/20 05:44 05/29/20 05:53 Metoclopramide 10 Mg/2 Ml Sdv IVPUSH 05/29/20 05:45 5 mg ONETIME ONE Administration Ondansetron HCl 4 mg 05/29/20 04:25 05/29/20 05:01 Ondansetron 4 Mg/2 Ml Sdv IVPUSH 05/29/20 04:26 4 mg ONETIME ONE Administration Ondansetron HCl 4 mg 05/29/20 08:05 05/29/20 08:08 Ondansetron 4 Mg/2 Ml Sdv IVPUSH 05/29/20 08:06 4 mg ONETIME ONE Administration - Re-Assessments/Exams Free Text/Narrative Re-Assessment/Exam: 05/29/20 08:05 patient is complaining of further nausea. She did receive Reglan and Zofran in the last 3 hours. Will repeat Zofran 4 mg IV Departure - Departure Time of Disposition: 08:10 Sepsis Event Note (ED) - Focused Exam Vital Signs: Vital Signs Temp Pulse Resp BP Pulse Ox 05/29/20 08:13 36.9 C 89 12 123/88 99 05/29/20 04:05 36.1 C 83 20 126/88 100
[2020-05-29] MEDS ORDERED: Metoclopramide 10 MG/2 ML SDV IVPUSH ONE (05:44)
[2020-05-29] MEDS ORDERED: Dicyclomine 20 MG/2 ML SDV IM ONE (05:50)
--- NOTE | 2020-05-29 12:14 | US ---
Pelvic ultrasound: Multiple real-time images were obtained transvaginally. Comparison: Prior pelvic ultrasound of 02/13/20. Ovaries show no focal cysts or solid abnormality. Uterus is anteverted. Minimal fluid is seen within the endometrial cavity. Endometrial thickness measures 3.2 mm which is normal. No free fluid is seen. Impression: 1. Small amount of fluid within the endometrial cavity raising the possibility of a small amount of blood. 2. Other portions of the pelvic ultrasound are unremarkable. Diagnostic code #3 I agree with preliminary report from [facility] finalized on 05/29/20, 7:05 AM CDT
== END 2020-05-29 08:17 | disposition home or self-care (01) ==
LOC: JD.ED 03:54
DX: R10.30 Lower abdominal pain, unspecified (principal); R11.2 Nausea with vomiting, unspecified
CPT/HCPCS: 36415; 76830; 80053; 83690; 85025; 96372; 96374; 96375; 96376; 99284; J0500; J1200; J2060; J2405; J2765; J7120; 99283

== ENCOUNTER 2020-06-01 07:03 | Day surgery (SDC) | payer BC ==
[~2020-06-01 07:03] MED LIST: Lidocaine 1% 4 ML ONE; Lidocaine 1%/Sod Bicarbonate in NS 8.4% 1 ML Syringe IDERM PRN; Ondansetron 4 MG/2 ML SDV ONE; Sodium Chloride 0.9% 10 ML Syringe FLUSH PRN
[2020-06-01] MEDS ORDERED: fentaNYL 250 MCG/5 ML SDV ONE (07:04)
[2020-06-01] MEDS ORDERED: Propofol 200 MG/20 ML SDV ONE (07:04)
[2020-06-01] MEDS ORDERED: Midazolam 1 MG/ML 2 ML SDV ONE (07:04)
[2020-06-01] MEDS ORDERED: Lidocaine 1% with EPINEPHrine 1:100,000 10 ML MDV ONE (07:19)
[2020-06-01] MEDS ORDERED: Sodium Chloride 0.9% 50 ML SDV ONE (07:19)
[2020-06-01] MEDS: Lactated Ringers 1,000 ML IV SCH ×2 (07:20→10:43)
--- NOTE | 2020-06-01 07:25 | PCM.PREANE ---
Preanesthetic Assessment - Procedure Proposed Procedure: lav - Anesthesia/Transfusion/Family Hx Anesthesia History: Prior Anesthesia Reaction Type of Anesthesia Reaction: Excessive Nausea/Vomiting Family History of Anesthesia Reaction: No Transfusion History: No Prior Transfusion(s) Intubation History: Unknown - Review of Systems General: No Symptoms Pulmonary: No Symptoms Cardiovascular: No Symptoms Gastrointestinal: Other (sick on Saturday- vomiting) Neurological: No Symptoms Other: Reports: Sinus Problem - Physical Assessment NPO Status Date: 05/31/20 NPO Status Time: 22:00 Vital Signs: 77 98% 129/93 16 98.4 Height: 5 ft 9 in Weight: 93 kg ASA Class: 2 Mental Status: Alert & Oriented x3 Airway Class: Mallampati = 1 Dentition: Reports: Normal Dentition Thyro-Mental Finger Breadths: 3 Mouth Opening Finger Breadths: 3 ROM/Head Extension: Full Lungs: Clear to Auscultation, Normal Respiratory Effort Cardiovascular: Regular Rate, Regular Rhythm - Allergies Allergies/Adverse Reactions: Allergies Allergy/AdvReac Type Severity Reaction Status Date / Time hydromorphone [From Dilaudid] Allergy Itching Verified 05/31/20 12:17 - Blood Blood Available: Yes - Acknowledgements Anesthesia Type Planned: General Anesthesia Pt an Appropriate Candidate for the Planned Anesthesia: Yes Alternatives and Risks of Anesthesia Discussed w Pt/Guardian: Yes Pt/Guardian Understands and Agrees with Anesthesia Plan: Yes PreAnesthesia Questionnaire HEENT History: Reports: Impaired Vision, Other (See Below) Other HEENT History: wears glasses Cardiovascular History: Reports: None Respiratory History: Reports: None, Other (See Below) (seasonal allergies and uses inhaler) Gastrointestinal History: Reports: GERD, Hepatitis (A when she was 3), Pancreatitis Other Gastrointestinal History: chronic pancreatitis--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 They were discovered coincidentally from an ERCP that was done after gastric sleeve procedure was performed Genitourinary History: Reports: Other (See Below) Other Genitourinary History: hx of UTI x2 L[employer] History: Reports: Endometrial Ablation Musculoskeletal History: Reports: None Neurological History: Reports: Headaches, Chronic, Migraines Psychiatric History: Reports: None Endocrine/Metabolic History: Reports: Obesity/BMI 30+ Hematologic History: Reports: None Immunologic History: Reports: None Oncologic (Cancer) History: Reports: None Dermatologic History: Reports: None - Infectious Disease History Infectious Disease History: Reports: None Other Infectious Disease History: Hx of Hep A, not currently positive - Past Surgical History Head Surgeries/Procedures: Reports: None HEENT Surgical History: Reports: Adenoidectomy, Tonsillectomy, Other (See Below) Other HEENT Surgeries/Procedures: tooth removed Cardiovascular Surgical History: Reports: None Respiratory Surgical History: Reports: None GI Surgical History: Reports: Appendectomy, Bariatric Procedure, Cholecystectomy, Colonoscopy, EGD Female Surgical History: Reports: Endometrial Ablation, Salpingo- Oophorectomy, Tubal Ligation Endocrine Surgical History: Reports: None Neurological Surgical History: Reports: None Musculoskeletal Surgical History: Reports: None Oncologic Surgical History: Reports: None Dermatological Surgical History: Reports: Other (See Below) - SUBSTANCE USE Tobacco Use Status *Q: Never Tobacco User Tobacco Use Within Last Twelve Months: No Second Hand Smoke Exposure: No Days Per Week of Alcohol Use: 1 Recreational Drug Use History: No - HOME MEDS Home Medications: Home Meds Metoclopramide HCl 5 - 10 mg PO QID PRN 05/31/20 [History] Temazepam [Restoril] 30 mg PO BEDTIME PRN 05/31/20 [History] traMADol [Ultram] 50 mg PO Q6H PRN 05/31/20 [History] - CURRENT (IN HOUSE) MEDS Current Meds: Current Medications Lactated Ringer's (Ringers, Lactated) 1,000 mls @ 125 mls/hr IV ASDIRECTED MARISABEL Stop: 06/01/20 23:00 Lidocaine/Sodium Bicarbonate (Lidocaine 1%/Sod Bicarbonate In Ns 8.4% 1 Ml Syringe) 0.25 ml IDERM ONETIME PRN PRN Reason: Prior to IV Start Stop: 06/01/20 18:00 Sodium Chloride (Sodium Chloride 0.9% 10 Ml Syringe) 10 ml FLUSH ASDIRECTED PRN PRN Reason: Keep Vein Open Stop: 06/01/20 18:00 Discontinued Medications Fentanyl (Fentanyl 250 Mcg/5 Ml Sdv) Confirm Administered Dose 250 mcg .ROUTE .STK-MED ONE Stop: 06/01/20 07:05 Lidocaine HCl (Xylocaine-Mpf 1%) Confirm Administered Dose 4 mls @ as directed .ROUTE .STK-MED ONE Stop: 06/01/20 07:04 Midazolam HCl (Midazolam 1 Mg/Ml 2 Ml Sdv) Confirm Administered Dose 2 mg .ROUTE .STK-MED ONE Stop: 06/01/20 07:05 Ondansetron HCl (Ondansetron 4 Mg/2 Ml Sdv) Confirm Administered Dose 4 mg .ROUTE .STK-MED ONE Stop: 06/01/20 07:04 Propofol (Propofol 200 Mg/20 Ml Sdv) Confirm Administered Dose 200 mg .ROUTE .STK-MED ONE Stop: 06/01/20 07:05 Vecuronium Page (Vecuronium 10 Mg Vial) Confirm Administered Dose 10 mg .ROUTE .STK-MED ONE Stop: 06/01/20 07:05
[2020-06-01] MEDS ORDERED: Bupivacaine 0.5% 30 ML SDV ONE (07:46)
[2020-06-01] MEDS ORDERED: HYDROmorphone 0.5 MG/0.5 ML Syringe ONE ×2 (07:55→08:42)
[2020-06-01] MEDS ORDERED: ceFAZolin 1 GM Vial ONE (07:56)
[2020-06-01] MEDS ORDERED: Ketamine 500 mg/10 ML MDV ONE (07:56)
[2020-06-01] MEDS ORDERED: Scopolamine 1.5 MG Transdermal Patch TOP ONE (08:00)
[2020-06-01] MEDS ORDERED: Dexamethasone 4 MG/ML 5 ML MDV ONE (08:04)
[2020-06-01] MEDS ORDERED: diphenhydrAMINE 50 MG/ML SDV ONE (08:06)
[2020-06-01] MEDS ORDERED: Lactated Ringers 1,000 ML ONE (08:21)
[2020-06-01] MEDS ORDERED: fentaNYL 100 MCG/2 ML SDV IVPUSH PRN (08:23)
[2020-06-01] MEDS ORDERED: Ondansetron 4 MG/2 ML SDV IVPUSH PRN (08:23)
[2020-06-01] MEDS ORDERED: HYDROmorphone 0.5 MG/0.5 ML Syringe IVPUSH PRN (08:23)
[2020-06-01] MEDS ORDERED: Ondansetron 4 MG/2 ML SDV ONE (09:06)
[2020-06-01] MEDS ORDERED: Ketorolac 30 MG/ML SDV ONE (09:15)
[2020-06-01] MEDS ORDERED: fentaNYL 100 MCG/2 ML SDV ONE (09:21)
--- NOTE | 2020-06-01 09:55 | PCM.OPNOTE ---
- General Post-Op/Procedure Note Date of Surgery/Procedure: 06/01/20 Operative Procedure(s): laparoscopic assisted vaginal hysterectomy Findings: normal pelvic anatomy, absent fallopian tubes. Pre Op Diagnosis: pelvic pain, post ablation syndrome Post-Op Diagnosis: Same Anesthesia Technique: General ET Tube Primary Surgeon: Stephanie Fregoso Franchise Sales Director: Agnes Michelle Role of Franchise Sales Director: retraction, patient safety Fluid Replacement, Intraop: 1,500 Output, Urine Amount: 250 EBL in mLs: 100 Drain/Tube Comments:: gilliam removed post procedure Complications: None Condition: Good Free Text/Narrative:: The risks, benefits, indications, potential complications, and alternatives were explained to the patient and informed consent obtained. The patient was taken to the Operating Room where general anesthesia was induced without complication. The patient was placed in dorsal lithotomy with Jama Stirrups and an exam under anesthesia revealed the findings detailed above. The patient was then prepped and draped in the usual sterile fashion. A sterile bivalve speculum was placed into the vagina and the anterior lip of the cervix was grasped with a single tooth tenaculum and a sponge stick uterine manipulator was placed as unable to sound uterus to pass hulka. The speculum and single tooth tenaculum were removed from the vagina. A Gilliam catheter was placed in sterile fashion. Attention was then turned to the patients abdomen where a Veress needle was carefully introduced into the peritoneal cavity while tenting the abdominal wall. Intraperitoneal placement was confirmed by free flow of saline into the abdomen from a syringe open to gravity and with a low intraabdominal pressure with insufflation of C02 gas on low flow. The gas was increased to high flow and a pneumoperitoneum was obtained with C02 gas to a pressure of 15 mm Hg. A 5 mm skin incision was made in a vertical fashion in the umbilical fold and a 5 mm blunt trocar was inserted into the abdomen with direct visualization of the laparoscope through the clear view trocar lens. 5 mm skin incisions were made in both the left and right lower quadrants approximately 10 cm lateral and 3 cm inferior to the umbilicus. 5 mm blunt trocars were inserted into the abdomen under direct visualization with care to avoid the abdominal wall vasculature. A blunt probe and grasper were inserted through the accessory ports and a survey of the abdomen revealed the findings detailed above. The round ligament on the left was then elevated, cauterized, and transected with the Ligasure. Hemostasis was noted. Two more small bites along the left side of the uterus were made with the Ligasure to skeletonize the uterine artery. Hemostasis was noted. The exact same procedure was carried out on the left adnexa. Next, the left round ligament was elevated, cauterized, and transected and a couple of additional small bites on the left side of the uterus were made to help skeletonize the uterine artery. Hemostasis as noted. The CO2 gas was turned off and the laparoscope was removed. Attention was then turned to the vaginal portion of the procedure. A short weighted speculum was placed in the vagina, and the cervix was grasped with two double-toothed tenaculums. The cervix was injected circumferentially with 10 ml of 0.25% lidocaine with epinepherine. The cervix was then circumferentially incised with a scalpel. A Raytec was used to bluntly dissect the cervix circumferentially until an avascular plane was obtained. The posterior cul-de-sac was entered sharply without difficulty. A 0-Vicryl pop-off suture was placed at six o'clock to include the posterior vaginal mucosa and posterior peritoneum. This stitch was tagged with a straight clamp to help with vaginal cuff closure at the end of the case. The short weighted speculum was replaced by the long weighted speculum. The uterosacral ligaments were grasped on either side, transected, suture ligated, and tagged with curved hemostats on each side. Hemostasis was assured. The bladder was dissected off the pubovesical cervical fascia anteriorly with a sponge and blunt dissection. The anteiror cul-de-sac was then entered sharply without difficulty. The cardinal ligaments were then serially clamped on both sides, transected, and suture ligated in similar fashion with 0-Vicryl sutures. The uterine arteries were then clamped, transected and suture ligated on both sides with 0-Vicryl sutures. Hemostasis was then noted. The fundus and adnexa were confirmed to be free of any further peritoneal attachments and then were pulled out through the vagina. The uterosacral ligaments were transfixed to the vaginal cuff at the apex on each side with 0-vicryl sutures in figure of eight fashion. The vaginal cuff was closed with a 0-Vicryl in a running locked fashion. Hemostasis was noted. Attention was then again turned to the abdomen. All members of the surgical team changed gloves. The laparoscope was again inserted and the abdomen was again insufflated with CO2. The pedicles were again visualized. Irrigation of the pedicles was performed. Hemostasis was confirmed. The patient was taken out of Trendelenberg position. The accessory trocars were removed under direct visualization. The pneumoperitoneum was allowed to escape. The umbilical trocar was removed and lastly the camera was removed from the abdomen under direct visualization to confirm no herniation into the port site. All skin incisions were re-approximated with 4-0 Monocryl and sealed with Dermabond. Hemostasis was noted. A total of 10 cc of 0.25% Marcaine was injected into the subcutaneous tissues surrounding the skin incisions for local anesthesia. All sponge, lap, needle, and instrument counts were correct x 2. The patient tolerated the procedure well and there were no complications. Complications: The patient tolerated the procedure well and no complications were noted.
--- NOTE | 2020-06-01 10:02 | PCM.POSTAN ---
POST ANESTHESIA ASSESSMENT - MENTAL STATUS Mental Status: Alert, Oriented - VITAL SIGNS Vital Signs: Last Vital Signs Temp 98.4 F 06/01/20 07:05 Pulse 77 06/01/20 07:05 Resp 16 06/01/20 07:05 BP 129/93 H 06/01/20 07:05 Pulse Ox 98 06/01/20 07:05 0944 138/83 90 9 98.3 98% - RESPIRATORY Respiratory Status: Respiratory Rate WNL, Airway Patent, O2 Saturation Stable, Supplemental Oxygen - CARDIOVASCULAR CV Status: Pulse Rate WNL, Blood Pressure Stable - GASTROINTESTINAL GI Status: No Symptoms - PAIN Pain Score: 9 (medicated) - POST OP HYDRATION Hydration Status: Adequate & Stable
[2020-06-01] MEDS ORDERED: Meperidine 50 MG/ML Vial IVPUSH PRN (10:06)
[2020-06-01] MEDS ORDERED: diphenhydrAMINE 50 MG/ML SDV IVPUSH SCH (11:00)
--- NOTE | 2020-06-01 11:28 | PCM48HPAN ---
Post Anesthesia Note - EVALUATION WITHIN 48HRS OF ANESTHETIC Vital Signs in Normal Range: Yes Patient Participated in Evaluation: Yes Respiratory Function Stable: Yes Airway Patent: Yes Cardiovascular Function Stable: Yes Hydration Status Stable: Yes Pain Control Satisfactory: Yes Nausea and Vomiting Control Satisfactory: Yes Mental Status Recovered: Yes (up to bathroom- pain 7) Vital Signs: Last Vital Signs Temp 99.7 F 06/01/20 10:30 Pulse 74 06/01/20 10:30 Resp 17 06/01/20 10:30 BP 125/81 06/01/20 10:30 Pulse Ox 97 06/01/20 10:30
[2020-06-01] MEDS: Acetaminophen/HYDROcodone 325-5 MG Tab PO PRN ×2 (12:27→17:05)
[2020-06-01] MEDS: Ketorolac 30 MG/ML SDV IVPUSH SCH ×2 (15:26→22:46)
[2020-06-01] MEDS: diphenhydrAMINE 50 MG/ML SDV IVPUSH PRN (17:43)
[2020-06-01] MEDS ORDERED: Temazepam 30 MG Cap PO PRN (20:01)
[2020-06-01] MEDS ORDERED: Morphine 4 MG/ML Syringe IVPUSH ONE (20:03)
[2020-06-02] MEDS: Acetaminophen/HYDROcodone 325-5 MG Tab PO PRN ×3 (03:04→12:25)
[2020-06-02] MEDS: diphenhydrAMINE 50 MG/ML SDV IVPUSH PRN (03:12)
[2020-06-02] MEDS ORDERED: Ketorolac 30 MG/ML SDV ONE (05:41)
[2020-06-02] MEDS: Ketorolac 30 MG/ML SDV IVPUSH SCH (05:43)
--- NOTE | 2020-06-02 07:11 | PCM.SURGPN ---
- General Info Date of Service: 06/02/20 Functional Status: Reports: Pain Controlled - Review of Systems General: Reports: No Symptoms HEENT: Reports: No Symptoms Pulmonary: Reports: No Symptoms Cardiovascular: Reports: No Symptoms Gastrointestinal: Reports: No Symptoms Genitourinary: Reports: No Symptoms Musculoskeletal: Reports: No Symptoms Skin: Reports: No Symptoms Neurological: Reports: No Symptoms Psychiatric: Reports: No Symptoms - Patient Data Vitals - Most Recent: Last Vital Signs Temp 36.2 C 06/02/20 03:00 Pulse 53 L 06/02/20 03:00 Resp 16 06/01/20 23:06 BP 97/57 L 06/02/20 03:00 Pulse Ox 97 06/02/20 03:00 Weight - Most Recent: 93 kg I&O - Last 24 Hours: Intake & Output 06/01/20 06/02/20 06/02/20 22:59 06:59 14:59 Intake Total 400 Output Total 1200 375 Balance -1200 25 Lab Results Last 24 Hrs: Laboratory Results - last 24 hr 06/01/20 06/01/20 Range/Units 07:03 07:15 Urine HCG, Qual Negative (NEGATIVE) Blood Type B POSITIVE Gel Antibody Screen Negative Med Orders - Current: Current Medications Hydrocodone Bitart/Acetaminophen (Acetaminophen/Hydrocodone 325-5 Mg Tab) 1 - 2 tab PO Q4H PRN PRN Reason: Pain Last Admin: 06/02/20 03:04 Dose: 2 tab Documented by: Diphenhydramine HCl (Diphenhydramine 50 Mg/Ml Sdv) 25 mg IVPUSH Q6H PRN PRN Reason: Itching Last Admin: 06/02/20 03:12 Dose: 25 mg Documented by: Temazepam (Temazepam 30 Mg Cap) 30 mg PO BEDTIME PRN PRN Reason: Sleep Last Admin: 06/01/20 20:54 Dose: 30 mg Documented by: Discontinued Medications Bupivacaine HCl (Bupivacaine 0.5% 30 Ml Sdv) Confirm Administered Dose 30 ml .ROUTE .STK-MED ONE Stop: 06/01/20 07:47 Last Admin: 06/01/20 08:36 Dose: 8 ml Documented by: Cefazolin Sodium (Cefazolin 1 Gm Vial) Confirm Administered Dose 2 gm .ROUTE .STK-MED ONE Stop: 06/01/20 07:57 Dexamethasone (Dexamethasone 4 Mg/Ml 5 Ml Mdv) Confirm Administered Dose 20 mg .ROUTE .STK-MED ONE Stop: 06/01/20 08:05 Diphenhydramine HCl (Diphenhydramine 50 Mg/Ml Sdv) Confirm Administered Dose 50 mg .ROUTE .STK-MED ONE Stop: 06/01/20 08:07 Diphenhydramine HCl (Diphenhydramine 50 Mg/Ml Sdv) 25 mg IVPUSH ONETIME MARISABEL Stop: 06/01/20 18:00 Last Admin: 06/01/20 10:53 Dose: 25 mg Documented by: Fentanyl (Fentanyl 250 Mcg/5 Ml Sdv) Confirm Administered Dose 250 mcg .ROUTE .STK-MED ONE Stop: 06/01/20 07:05 Fentanyl (Fentanyl 100 Mcg/2 Ml Sdv) 50 mcg IVPUSH Q5M PRN PRN Reason: Pain Stop: 06/01/20 18:00 Last Admin: 06/01/20 13:34 Dose: 50 mcg Documented by: Fentanyl (Fentanyl 100 Mcg/2 Ml Sdv) Confirm Administered Dose 100 mcg .ROUTE .STK-MED ONE Stop: 06/01/20 09:22 Glycopyrrolate (Glycopyrrolate 0.2 Mg/Ml 2 Ml Syringe) Confirm Administered Dose 0.4 mg .ROUTE .STK-MED ONE Stop: 06/01/20 09:06 Hydromorphone HCl (Hydromorphone 0.5 Mg/0.5 Ml Syringe) Confirm Administered Dose 0.5 mg .ROUTE .STK-MED ONE Stop: 06/01/20 07:56 Hydromorphone HCl (Hydromorphone 0.5 Mg/0.5 Ml Syringe) 0.5 mg IVPUSH Q10M PRN PRN Reason: Pain (severe 7-10) Stop: 06/01/20 18:00 Last Admin: 06/01/20 10:34 Dose: 0.5 mg Documented by: Hydromorphone HCl (Hydromorphone 0.5 Mg/0.5 Ml Syringe) Confirm Administered Dose 0.5 mg .ROUTE .STK-MED ONE Stop: 06/01/20 08:43 Lactated Ringer's (Ringers, Lactated) 1,000 mls @ 125 mls/hr IV ASDIRECTED MARISABEL Stop: 06/01/20 23:00 Last Admin: 06/01/20 10:43 Dose: 125 mls/hr Documented by: Lidocaine HCl (Xylocaine-Mpf 1%) Confirm Administered Dose 4 mls @ as directed .ROUTE .STK-MED ONE Stop: 06/01/20 07:04 Lactated Ringer's (Ringers, Lactated) Confirm Administered Dose 1,000 mls @ as directed .ROUTE .STK-MED ONE Stop: 06/01/20 08:22 Ketamine HCl (Ketamine 500 Mg/10 Ml Mdv) Confirm Administered Dose 500 mg .ROUTE .STK-MED ONE Stop: 06/01/20 07:57 Ketorolac Tromethamine (Ketorolac 30 Mg/Ml Sdv) Confirm Administered Dose 30 mg .ROUTE .STK-MED ONE Stop: 06/01/20 09:16 Ketorolac Tromethamine (Ketorolac 30 Mg/Ml Sdv) 30 mg IVPUSH Q6H MARISABEL Stop: 06/02/20 03:31 Last Admin: 06/02/20 05:43 Dose: 30 mg Documented by: Ketorolac Tromethamine (Ketorolac 30 Mg/Ml Sdv) Confirm Administered Dose 30 mg .ROUTE .STK-MED ONE Stop: 06/02/20 05:42 Lidocaine/Epinephrine (Lidocaine 1% With Epinephrine 1:100,000 10 Ml Mdv) Confirm Administered Dose 10 ml .ROUTE .STK-MED ONE Stop: 06/01/20 07:20 Last Admin: 06/01/20 08:36 Dose: 5 ml Documented by: Lidocaine/Sodium Bicarbonate (Lidocaine 1%/Sod Bicarbonate In Ns 8.4% 1 Ml Syringe) 0.25 ml IDERM ONETIME PRN PRN Reason: Prior to IV Start Stop: 06/01/20 18:00 Meperidine HCl (Meperidine 50 Mg/Ml Vial) 25 mg IVPUSH ONETIME PRN PRN Reason: Shivering Stop: 06/01/20 18:00 Last Admin: 06/01/20 10:11 Dose: 25 mg Documented by: Midazolam HCl (Midazolam 1 Mg/Ml 2 Ml Sdv) Confirm Administered Dose 2 mg .ROUTE .STK-MED ONE Stop: 06/01/20 07:05 Morphine Sulfate (Morphine 4 Mg/Ml Syringe) 4 mg IVPUSH ONETIME ONE Stop: 06/01/20 20:04 Last Admin: 06/01/20 20:54 Dose: 4 mg Documented by: Neostigmine Methylsulfate (Neostigmine Methylsulfate 5 Mg/5 Ml Syringe) Confirm Administered Dose 5 mg .ROUTE .STK-MED ONE Stop: 06/01/20 09:06 Ondansetron HCl (Ondansetron 4 Mg/2 Ml Sdv) Confirm Administered Dose 4 mg .ROUTE .STK-MED ONE Stop: 06/01/20 07:04 Ondansetron HCl (Ondansetron 4 Mg/2 Ml Sdv) 4 mg IVPUSH ONETIME PRN PRN Reason: Nausea/Vomiting Stop: 06/01/20 18:00 Ondansetron HCl (Ondansetron 4 Mg/2 Ml Sdv) Confirm Administered Dose 4 mg .ROUTE .STK-MED ONE Stop: 06/01/20 09:07 Propofol (Propofol 200 Mg/20 Ml Sdv) Confirm Administered Dose 200 mg .ROUTE .STK-MED ONE Stop: 06/01/20 07:05 Scopolamine (Scopolamine 1.5 Mg Transdermal Patch) 1.5 mg TOP ONETIME ONE Stop: 06/01/20 08:01 Last Admin: 06/01/20 07:29 Dose: 1.5 mg Documented by: Sodium Chloride (Sodium Chloride 0.9% 10 Ml Syringe) 10 ml FLUSH ASDIRECTED PRN PRN Reason: Keep Vein Open Stop: 06/01/20 18:00 Sodium Chloride (Sodium Chloride 0.9% 50 Ml Sdv) Confirm Administered Dose 50 ml .ROUTE .STK-MED ONE Stop: 06/01/20 07:20 Last Admin: 06/01/20 08:37 Dose: 15 ml Documented by: Vecuronium Divide (Vecuronium 10 Mg Vial) Confirm Administered Dose 10 mg .ROUTE .STK-MED ONE Stop: 06/01/20 07:05 - Exam Wound/Incisions: Healing Well General: Alert, Oriented HEENT: Pupils Equal Neck: Supple Cardiovascular: Regular Rate, Regular Rhythm GI/Abdominal Exam: Normal Bowel Sounds, Soft, Non-Tender, No Organomegaly, No Distention, No Abnormal Bruit, No Mass, Pelvis Stable Extremities: Normal Inspection, Normal Range of Motion, Non-Tender, No Pedal Edema, Normal Capillary Refill Skin: Warm, Dry, Intact Psy/Mental Status: Alert, Normal Affect Sepsis Event Note - Evaluation Sepsis Screening Result: No Definite Risk - Focused Exam Vital Signs: Vital Signs Temp Pulse Resp BP Pulse Ox 06/02/20 03:00 36.2 C 53 L 97/57 L 97 06/01/20 23:06 36.7 C 70 16 110/57 L 97 06/01/20 19:57 37.3 C 69 16 115/63 97 - Problem List Review Problem List Initiated/Reviewed/Updated: Yes - My Orders Last 24 Hours: Active Orders 24 hr Category Date Time Status Admission Status [Patient Status] [ADT] Routine ADT 06/02/20 06:42 Active Communication Order [RC] PER UNIT ROUTINE Care 06/01/20 13:57 Active [facility]al[facility] Catheter Insertion [Insert Urinary Catheter] [OM. Care 06/01/20 15:15 Ordered PC] Q24H Ready for Discharge [RC] PER UNIT ROUTINE Care 06/01/20 10:00 Active Urinary Catheter Assessment [RC] ASDIRECTED Care 06/01/20 15:09 Active Urinary Catheter Insertion [Insert Urinary Catheter] [ Care 06/01/20 14:00 Ordered OM.PC] Q24H Regular Diet [DIET] Diet 06/01/20 Lunch Active Acetaminophen/HYDROcodone [[place] 325-5 MG] Med 06/01/20 12:15 Active 1 - 2 tab PO Q4H PRN Temazepam [Restoril] Med 06/01/20 20:01 Active 30 mg PO BEDTIME PRN diphenhydrAMINE [Benadryl] Med 06/01/20 17:31 Active 25 mg IVPUSH Q6H PRN Medication Orders Hydrocodone Bitart/Acetaminophen (Acetaminophen/Hydrocodone 325-5 Mg Tab) 1 - 2 tab PO Q4H PRN PRN Reason: Pain Last Admin: 06/02/20 03:04 Dose: 2 tab Documented by: Admin: 06/01/20 17:05 Dose: 2 tab Documented by: Admin: 06/01/20 12:27 Dose: 2 tab Documented by: JORI Diphenhydramine HCl (Diphenhydramine 50 Mg/Ml Sdv) 25 mg IVPUSH Q6H PRN PRN Reason: Itching Last Admin: 06/02/20 03:12 Dose: 25 mg Documented by: Admin: 06/01/20 17:43 Dose: 25 mg Documented by: THEO Temazepam (Temazepam 30 Mg Cap) 30 mg PO BEDTIME PRN PRN Reason: Sleep Last Admin: 06/01/20 20:54 Dose: 30 mg Documented by: CONSTANZA - Plan Plan (Free Text/Narrative):: Doing well after hysterectomy. Villalobos out. Home after void trial.
[2020-06-02] MEDS ORDERED: Lactated Ringers 1,000 ML IV ONE (07:31)
[2020-06-02 07:54] VITALS: BP 110/74; PULSE 64
== END 2020-06-02 12:57 | disposition home or self-care (01) ==
LOC: JD.SDS 07:03 → JD.OB 14:58 → JD.SDS 06-02 12:57
PROVIDERS: ATTEND Obstetrics & Gynecology
DX: N80.0 Endometriosis of uterus (principal); N73.6 Female pelvic peritoneal adhesions (postinfective); E66.9 Obesity, unspecified; G43.909 Migraine, unspecified, not intractable, without status migrainosus; K21.9 Gastro-esophageal reflux disease without esophagitis; Z98.890 Other specified postprocedural states; Z88.5 Allergy status to narcotic agent; Z79.899 Other long term (current) drug therapy; Z68.31 Body mass index [BMI] 31.0-31.9, adult
CPT/HCPCS: 00944; 36415; 51702; 81025; 86850; 86900; 86901; A9270-GY; J0690; J1100; J1170; J1200; J1885; J2175; J2250; J2270; J2405; J2704; J2710; J3010; J3490; J7120

== ENCOUNTER 2020-10-28 15:39 | Emergency (ER) | payer SELFPAY ==
--- NOTE | 2020-10-28 15:56 | EDM.PDOC ---
ED HPI GENERAL MEDICAL PROBLEM - General Chief Complaint: General Stated Complaint: COVID SYMPTOMS Time Seen by Provider: 10/28/20 15:49 - History of Present Illness INITIAL COMMENTS - FREE TEXT/NARRATIVE: 35-year-old female presents the emergency room with aches and pains all over. Patient is been quite fatigued and has developed aches all over she has a headache. She has chronic headaches but this seems to be getting worse. The patient was exposed to someone with mono several days ago her work associate was diagnosed with it. The patient has not had a Covid vaccine. She denies any loss of taste or smell has decreased appetite but no nausea vomiting diarrhea or abdominal pain. She is not coughing has no shortness of breath but has quite a bit of sinus congestion. head Pain Score (Numeric/FACES): 5 - Related Data Allergies Allergy/AdvReac Type Severity Reaction Status Date / Time hydromorphone [From Dilaudid] Allergy Itching Verified 10/28/20 15:54 Home Meds: Home Meds Metoclopramide HCl 5 - 10 mg PO QID PRN 05/31/20 [History] Temazepam [Restoril] 30 mg PO BEDTIME PRN 05/31/20 [History] traMADol [Ultram] 50 mg PO Q6H PRN 05/31/20 [History] Past Medical History HEENT History: Reports: None Other HEENT History: wears glasses Cardiovascular History: Reports: None Respiratory History: Reports: None, Other (See Below) (seasonal allergies and uses inhaler) Gastrointestinal History: Reports: GERD, Hepatitis (A when she was 3), Pancreatitis Other Gastrointestinal History: chronic pancreatitis--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 They were discovered coincidentally from an ERCP that was done after gastric sleeve procedure was performed Genitourinary History: Reports: Other (See Below) Other Genitourinary History: hx of UTI x2 [employer] History: Reports: Endometrial Ablation Musculoskeletal History: Reports: None Neurological History: Reports: Migraines Psychiatric History: Reports: None Endocrine/Metabolic History: Reports: Obesity/BMI 30+ Hematologic History: Reports: None Immunologic History: Reports: None Oncologic (Cancer) History: Reports: None Dermatologic History: Reports: None - Infectious Disease History Infectious Disease History: Reports: Hepatitis A Other Infectious Disease History: Hx of Hep A, not currently positive - Past Surgical History HEENT Surgical History: Reports: Other (See Below) GI Surgical History: Reports: Appendectomy, Bariatric Procedure, Cholecystectomy Dermatological Surgical History: Reports: None Social & Family History - Family History Family Medical History: No Pertinent Family History - Caffeine Use Caffeine Use: Reports: None - Living Situation & Occupation Living situation: Reports: Occupation: Employed ED ROS GENERAL - Review of Systems Review Of Systems: See Below Constitutional: Reports: Malaise, Fatigue HEENT: Reports: Rhinitis, Sinus Problem. Denies: Ear Pain, Throat Pain, Throat Swelling Respiratory: Reports: No Symptoms Cardiovascular: Reports: No Symptoms GI/Abdominal: Reports: No Symptoms : Reports: No Symptoms Musculoskeletal: Reports: No Symptoms Skin: Reports: No Symptoms Neurological: Reports: No Symptoms ED EXAM, GENERAL - Physical Exam Exam: See Below Exam Limited By: No Limitations General Appearance: Alert, No Apparent Distress Ears: Normal External Exam, Normal Canal, Hearing Grossly Normal, Normal TMs Nose: Normal Inspection, Normal Mucosa, No Blood, Other (Maxillary sinus tenderness however she is got marked right-sided frontal sinus tenderness) Throat/Mouth: Normal Inspection, Normal Lips, Normal Teeth, Normal Gums, Normal Oropharynx, Normal Voice, No Airway Compromise Head: Atraumatic, Normocephalic Neck: Normal Inspection, Supple, Non-Tender, Full Range of Motion, Other (Has bilateral paraspinous muscle tenderness this causes pain to radiate over the top of her head this is a type of pain that she has been complaining of.). No: Tender Midline Respiratory/Chest: No Respiratory Distress, Lungs Clear, Normal Breath Sounds, No Accessory Muscle Use, Chest Non-Tender Cardiovascular: Normal Peripheral Pulses, Regular Rate, Rhythm, No Edema, No Gallop, No JVD, No Murmur, No Rub GI/Abdominal: Normal Bowel Sounds, Soft, Non-Tender Back Exam: Normal Inspection. No: CVA Tenderness (L), CVA Tenderness (R) Extremities: Normal Inspection, No Pedal Edema Course - Vital Signs Last Recorded V/S: Last Vital Signs Temp 36.4 C 10/28/20 15:51 Pulse 73 10/28/20 15:51 Resp 18 10/28/20 15:51 BP 127/81 10/28/20 15:51 Pulse Ox 96 10/28/20 15:51 - Orders/Labs/Meds Labs: Laboratory Tests 10/28/20 10/28/20 10/28/20 Range/Units 15:50 16:28 16:28 WBC 6.83 (3.98-10.04) K/mm3 RBC 4.61 (3.98-5.22) M/mm3 Hgb 11.7 (11.2-15.7) gm/dl Hct 36.4 (34.1-44.9) % MCV 79.0 L (79.4-94.8) fl MCH 25.4 L (25.6-32.2) pg MCHC 32.1 L (32.2-35.5) g/dl RDW Std Deviation 38.6 (36.4-46.3) fL Plt Count 219 (182-369) K/mm3 MPV 10.7 (9.4-12.3) fl Neutrophils % (Manual) 68 H (40-60) % Band Neutrophils % 0 (0-10) % Lymphocytes % (Manual) 24 (20-40) % Atypical Lymphs % 0 % Monocytes % (Manual) 7 (2-10) % Eosinophils % (Manual) 1 (0.7-5.8) % Basophils % (Manual) 0 L (0.1-1.2) Platelet Estimate Adequate RBC Morph Comment Normal Sodium 139 (136-145) mEq/L Potassium 3.8 (3.5-5.1) mEq/L Chloride 107 (98-107) mEq/L Carbon Dioxide 26 (21-32) mEq/L Anion Gap 9.8 (5-15) BUN 12 (7-18) mg/dL Creatinine 0.9 (0.55-1.02) mg/dL Est Cr Clr Drug Dosing 93.45 mL/min Estimated GFR (MDRD) > 60 (>60) mL/min BUN/Creatinine Ratio 13.3 L (14-18) Glucose 92 (70-99) mg/dL Calcium 8.4 L (8.5-10.1) mg/dL Ferritin (8-252) ng/ml Total Bilirubin 0.3 (0.2-1.0) mg/dL AST 13 L (15-37) U/L ALT 19 (14-59) U/L Alkaline Phosphatase 77 (46-116) U/L Lactate Dehydrogenase 140 (81-234) U/L C-Reactive Protein <0.2 (<1.0) mg/dL Total Protein 6.8 (6.4-8.2) g/dl Albumin 3.5 (3.4-5.0) g/dl Globulin 3.3 gm/dL Albumin/Globulin Ratio 1.1 (1-2) Monoscreen (NEGATIVE) SARS-CoV-2 RNA (PRADIP) Negative (NEGATIVE) 10/28/20 10/28/20 Range/Units 16:28 16:28 WBC (3.98-10.04) K/mm3 RBC (3.98-5.22) M/mm3 Hgb (11.2-15.7) gm/dl Hct (34.1-44.9) % MCV (79.4-94.8) fl MCH (25.6-32.2) pg MCHC (32.2-35.5) g/dl RDW Std Deviation (36.4-46.3) fL Plt Count (182-369) K/mm3 MPV (9.4-12.3) fl Neutrophils % (Manual) (40-60) % Band Neutrophils % (0-10) % Lymphocytes % (Manual) (20-40) % Atypical Lymphs % % Monocytes % (Manual) (2-10) % Eosinophils % (Manual) (0.7-5.8) % Basophils % (Manual) (0.1-1.2) Platelet Estimate RBC Morph Comment Sodium (136-145) mEq/L Potassium (3.5-5.1) mEq/L Chloride (98-107) mEq/L Carbon Dioxide (21-32) mEq/L Anion Gap (5-15) BUN (7-18) mg/dL Creatinine (0.55-1.02) mg/dL Est Cr Clr Drug Dosing mL/min Estimated GFR (MDRD) (>60) mL/min BUN/Creatinine Ratio (14-18) Glucose (70-99) mg/dL Calcium (8.5-10.1) mg/dL Ferritin 11 (8-252) ng/ml Total Bilirubin (0.2-1.0) mg/dL AST (15-37) U/L ALT (14-59) U/L Alkaline Phosphatase (46-116) U/L Lactate Dehydrogenase (81-234) U/L C-Reactive Protein (<1.0) mg/dL Total Protein (6.4-8.2) g/dl Albumin (3.4-5.0) g/dl Globulin gm/dL Albumin/Globulin Ratio (1-2) Monoscreen Negative (NEGATIVE) SARS-CoV-2 RNA (PRADIP) (NEGATIVE) - Re-Assessments/Exams Free Text/Narrative Re-Assessment/Exam: 10/28/20 17:36 Labs nonsuggestive. Covid is negative mono was negative Departure - Departure Time of Disposition: 17:37 Disposition: Home, Self-Care 01 Clinical Impression: Tension headache, chronic, Viral illness - Discharge Information Referrals: Samira Brink NP [Primary Care Provider] - Forms: ED Department Discharge Additional Instructions: Return to the emergency room with any questions problems or worsening symptoms. If you are still symptomatic by the middle of this next week get retested for Covid. This can be done at the health department or the Covid clinic. Tylenol as needed for aches and pains try warm compresses to the back your neck to help with the muscle tension. With the possibility of Covid self isolate until you are symptom-free for 4 days or you get your next Covid test is negative. Sepsis Event Note (ED) - Focused Exam Vital Signs: Vital Signs Temp Pulse Resp BP Pulse Ox 10/28/20 15:51 36.4 C 73 18 127/81 96
== END 2020-10-28 17:30 | disposition home or self-care (01) ==
LOC: JD.ED 15:39
DX: B34.9 Viral infection, unspecified (principal); G44.209 Tension-type headache, unspecified, not intractable; E66.9 Obesity, unspecified; Z88.5 Allergy status to narcotic agent; Z20.822 Contact with and (suspected) exposure to COVID-19; Z68.31 Body mass index [BMI] 31.0-31.9, adult
CPT/HCPCS: 36415; 80053; 82728; 83615; 85007; 85027; 86140; 86308; 99283; 99284; U0002

== ENCOUNTER 2021-01-06 21:46 | Emergency (ER) | payer SELFPAY ==
[2021-01-06] MEDS ORDERED: Sodium Chloride 0.9% 1,000 ML IV SCH (23:00)
--- NOTE | 2021-01-06 23:15 | EDM.PDOC ---
ED HPI GENERAL MEDICAL PROBLEM - General Chief Complaint: Abdominal Pain Stated Complaint: ABDOMINAL PAIN Time Seen by Provider: 01/06/21 22:10 - History of Present Illness INITIAL COMMENTS - FREE TEXT/NARRATIVE: 35-year-old female presents the emergency room with abdominal pain. This pain is been going on for 6 or 7 days progressively getting worse. 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 She denies any diarrhea constipation. No nausea no vomiting. The other thing she is complained about is she has had spotting post intercourse x2 since his pain started. Patient has a significant past history of having a hysterectomy. She is also had her gallbladder removed and her appendix removed. As far as she knows both ovaries are in place. She is not aware of any fevers or chills she is not thinking she has had any burning or frequency with urination. She has had problems with endometriosis in the past. Lower Mid-Anterior Pelvic Pain Score (Numeric/FACES): 10 - Related Data Allergies Allergy/AdvReac Type Severity Reaction Status Date / Time hydromorphone [From Dilaudid] Allergy Itching Verified 01/07/21 02:17 morphine Allergy Itching Verified 01/07/21 02:19 Home Meds: Home Meds Flurbiprofen 100 mg PO BID #30 tablet 01/07/21 [Rx] Past Medical History HEENT History: Reports: None Other HEENT History: wears glasses Cardiovascular History: Reports: None Respiratory History: Reports: Other (See Below) Gastrointestinal History: Reports: GERD, Hepatitis, Pancreatitis, Other (See Below) Other Gastrointestinal History: chronic pancreatitis--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 They were discovered coincidentally from an ERCP that was done after gastric sleeve procedure was performed. 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 Musculoskeletal History: Reports: None Neurological History: Reports: Migraines Psychiatric History: Reports: None Endocrine/Metabolic History: Reports: Obesity/BMI 30+ Hematologic History: Reports: None Immunologic History: Reports: None Oncologic (Cancer) History: Reports: None Dermatologic History: Reports: None - Infectious Disease History Infectious Disease History: Reports: Hepatitis A Other Infectious Disease History: Hx of Hep A, not currently positive - Past Surgical History HEENT Surgical History: Reports: Other (See Below) Other HEENT Surgeries/Procedures: tooth removed Cardiovascular Surgical History: Reports: None Respiratory Surgical History: Reports: None GI Surgical History: Reports: Appendectomy, Bariatric Procedure, Cholecystectomy, Other (See Below) Other GI Surgeries/Procedures: Gastric Band. Gastric Sleeve. Pre-cancerous tumors removed from Pancreas Female Surgical History: Reports: Endometrial Ablation, Salpingo- Oophorectomy, Tubal Ligation Other Female Surgeries/Procedures: Pt had bilateral Fallopian Tubes removed, along with Uterus, but still has both Ovaries. Emergency Surgery for Bleeding Fallopian Tubes Neurological Surgical History: Reports: None Oncologic Surgical History: Reports: None Social & Family History - Family History Family Medical History: No Pertinent Family History - Tobacco Use Tobacco Use Status *Q: Never Tobacco User - Caffeine Use Caffeine Use: Reports: None - Recreational Drug Use Recreational Drug Use: No - Living Situation & Occupation Living situation: Reports: Occupation: Employed ED ROS GENERAL - Review of Systems Review Of Systems: See Below Constitutional: Reports: No Symptoms HEENT: Reports: No Symptoms Respiratory: Reports: No Symptoms Cardiovascular: Reports: No Symptoms GI/Abdominal: Reports: Abdominal Pain. Denies: Black Stool, Bloody Stool, Constipation, Diarrhea, Nausea, Vomiting : Reports: Other (No vaginal discharge but she has had spotting post intercourse) Musculoskeletal: Reports: No Symptoms Skin: Reports: No Symptoms Neurological: Reports: No Symptoms ED EXAM, GENERAL - Physical Exam Exam: See Below Exam Limited By: No Limitations General Appearance: Alert, No Apparent Distress Head: Atraumatic, Normocephalic Neck: Normal Inspection, Supple, Non-Tender, Full Range of Motion Respiratory/Chest: No Respiratory Distress, Lungs Clear, Normal Breath Sounds Cardiovascular: Regular Rate, Rhythm, No Edema, No Murmur GI/Abdominal: Normal Bowel Sounds, Soft, Other (No suprapubic discomfort but she has pain to the extreme right lower abdomen and to a much lesser degree to the left side.) (Female) Exam: Normal External Exam, Other (Some irritation at the cuff site from her hysterectomy. But this is mild no excessive discharge noted cultures for GC chlamydia were obtained wet mount TERRI obtained she has right adnexal discomfort and to a much lesser degree discomfort in the left.) Back Exam: Normal Inspection. No: CVA Tenderness (L), CVA Tenderness (R) Neurological: Alert, Oriented, Normal Cognition Lymphatic: No Adenopathy Course - Vital Signs Last Recorded V/S: Last Vital Signs Temp 36.3 C 01/06/21 22:09 Pulse 56 L 01/07/21 04:00 Resp 12 01/07/21 04:00 BP 99/46 L 01/07/21 04:00 Pulse Ox 97 01/07/21 04:00 - Orders/Labs/Meds Orders: Active Orders 24 hr Category Date Time Status Abdomen Pelvis w Cont [CT] Stat Exams 01/06/21 23:44 Taken CHLAMYDIA AND GONORRHEA BY [facility] Stat Lab 01/07/21 00:00 Received Sodium Chloride 0.9% [Normal Saline] 1,000 ml Med 01/06/21 23:00 Active IV ASDIRECTED Medication Orders Sodium Chloride (Normal Saline) 1,000 mls @ 150 mls/hr IV ASDIRECTED MARISABEL Last Admin: 01/07/21 00:06 Dose: 150 mls/hr Documented by: ROWENA Labs: Laboratory Tests 01/06/21 01/06/21 01/06/21 Range/Units 23:26 23:55 23:55 WBC 8.17 (3.98-10.04) K/mm3 RBC 4.82 (3.98-5.22) M/mm3 Hgb 12.6 (11.2-15.7) gm/dl Hct 39.1 (34.1-44.9) % MCV 81.1 (79.4-94.8) fl MCH 26.1 (25.6-32.2) pg MCHC 32.2 (32.2-35.5) g/dl RDW Std Deviation 41.4 (36.4-46.3) fL Plt Count 249 (182-369) K/mm3 MPV 10.4 (9.4-12.3) fl Neut % (Auto) 63.2 (34.0-71.1) % Lymph % (Auto) 29.6 (19.3-51.7) % [place] % (Auto) 5.3 (4.7-12.5) % Eos % (Auto) 1.6 (0.7-5.8) Baso % (Auto) 0.2 (0.1-1.2) % Neut # (Auto) 5.16 (1.56-6.13) K/mm3 Lymph # (Auto) 2.42 (1.18-3.74) K/mm3 [place] # (Auto) 0.43 H (0.24-0.36) K/mm3 Eos # (Auto) 0.13 (0.04-0.36) K/mm3 Baso # (Auto) 0.02 (0.01-0.08) K/mm3 Sodium 139 (136-145) mEq/L Potassium 3.7 (3.5-5.1) mEq/L Chloride 105 (98-107) mEq/L Carbon Dioxide 25 (21-32) mEq/L Anion Gap 12.7 (5-15) BUN 17 (7-18) mg/dL Creatinine 1.0 (0.55-1.02) mg/dL Est Cr Clr Drug Dosing 81.28 mL/min Estimated GFR (MDRD) > 60 (>60) mL/min BUN/Creatinine Ratio 17.0 (14-18) Glucose 83 (70-99) mg/dL Calcium 8.2 L (8.5-10.1) mg/dL Total Bilirubin 0.2 (0.2-1.0) mg/dL AST 9 L (15-37) U/L ALT 17 (14-59) U/L Alkaline Phosphatase 88 (46-116) U/L Total Protein 6.8 (6.4-8.2) g/dl Albumin 3.7 (3.4-5.0) g/dl Globulin 3.1 gm/dL Albumin/Globulin Ratio 1.2 (1-2) Lipase 282 (73-393) U/L Urine Color Yellow (Yellow) Urine Appearance Clear (Clear) Urine pH 6.5 (5.0-8.0) Ur Specific [place] > or = 1.030 (1.005-1.030) Urine Protein Negative (Negative) Urine Glucose (UA) Negative (Negative) Urine Ketones Negative (Negative) Urine Occult Blood Negative (Negative) Urine Nitrite Negative (Negative) Urine Bilirubin Negative (Negative) Urine Urobilinogen 0.2 (0.2-1.0) Ur Leukocyte Esterase Negative (Negative) Meds: Medications Generic Name Dose Route Start Last Admin Trade Name Freq PRN Reason Stop Dose Admin Sodium Chloride 1,000 mls @ 150 mls/hr 01/06/21 23:00 01/07/21 00:06 Normal Saline IV 150 mls/hr ASDIRECTED MARISABEL Administration Discontinued Medications Generic Name Dose Route Start Last Admin Trade Name Marilin PRN Reason Stop Dose Admin Diphenhydramine HCl 25 mg 01/07/21 01:36 01/07/21 01:42 Diphenhydramine 50 Mg/Ml Sdv IVPUSH 01/07/21 01:37 25 mg ONETIME ONE Administration Famotidine 20 mg 01/07/21 00:16 01/07/21 00:20 Famotidine 20 Mg/2 Ml Sdv IVPUSH 01/07/21 00:17 20 mg ONETIME ONE Administration Famotidine Confirm 01/07/21 00:17 01/07/21 01:31 Famotidine 20 Mg/2 Ml Sdv Administered 01/07/21 00:18 Not Given Dose 20 mg .ROUTE .STK-MED ONE Famotidine 20 mg 01/07/21 01:56 01/07/21 02:12 Famotidine 20 Mg/2 Ml Sdv IVPUSH 01/07/21 01:57 20 mg ONETIME ONE Administration Fentanyl 50 mcg 01/07/21 02:03 01/07/21 02:12 Fentanyl 100 Mcg/2 Ml Sdv IVPUSH 01/07/21 02:04 50 mcg ONETIME ONE Administration Fentanyl Confirm 01/07/21 02:03 01/07/21 02:58 Fentanyl 100 Mcg/2 Ml Sdv Administered 01/07/21 02:04 Not Given Dose 100 mcg .ROUTE .STK-MED ONE Iopamidol 100 ml 01/07/21 00:39 01/07/21 00:40 Iopamidol 612 Mg/Ml 100 Ml Bottle IVPUSH 01/07/21 00:40 100 ml ONETIME ONE Administration Ketorolac Tromethamine 15 mg 01/07/21 02:52 01/07/21 02:56 Ketorolac 15 Mg/Ml Sdv IVPUSH 01/07/21 02:53 15 mg ONETIME ONE Administration Ketorolac Tromethamine Confirm 01/07/21 02:53 01/07/21 02:57 Ketorolac 15 Mg/Ml Sdv Administered 01/07/21 02:54 Not Given Dose 15 mg .ROUTE .STK-MED ONE Ketorolac Tromethamine 15 mg 01/07/21 03:54 01/07/21 03:59 Ketorolac 15 Mg/Ml Sdv IVPUSH 01/07/21 03:55 15 mg ONETIME ONE Administration Lorazepam 1 mg 01/07/21 02:23 01/07/21 02:30 Lorazepam 2 Mg/Ml Sdv IVPUSH 01/07/21 02:24 1 mg ONETIME ONE Administration Metoclopramide HCl 5 mg 01/07/21 03:54 01/07/21 03:59 Metoclopramide 10 Mg/2 Ml Sdv IVPUSH 01/07/21 03:55 5 mg ONETIME ONE Administration Morphine Sulfate 2 mg 01/07/21 00:13 01/07/21 00:19 Morphine 2 Mg/Ml Syringe IVPUSH 01/07/21 00:14 2 mg ONETIME ONE Administration Morphine Sulfate Confirm 01/07/21 00:17 01/07/21 01:12 Morphine 2 Mg/Ml Syringe Administered 01/07/21 00:18 2 mg Dose Administration 2 mg .ROUTE .STK-MED ONE Morphine Sulfate 2 mg 01/07/21 01:06 01/07/21 01:40 Morphine 2 Mg/Ml Syringe IVPUSH 01/07/21 01:07 2 mg ONETIME ONE Administration Ondansetron HCl 4 mg 01/07/21 00:13 01/07/21 00:20 Ondansetron 4 Mg/2 Ml Sdv IVPUSH 01/07/21 00:14 4 mg ONETIME ONE Administration Ondansetron HCl Confirm 01/07/21 00:16 01/07/21 01:30 Ondansetron 4 Mg/2 Ml Sdv Administered 01/07/21 00:17 Not Given Dose 4 mg .ROUTE .STK-MED ONE Sodium Chloride 10 ml 01/07/21 00:39 01/07/21 00:40 Sodium Chloride 0.9% 10 Ml Sdv FLUSH 01/07/21 00:40 10 ml ONETIME ONE Administration - Re-Assessments/Exams Free Text/Narrative Re-Assessment/Exam: 01/07/21 02:20 Labs nondiagnostic. Patient was having difficulty with discomfort we gave her some morphine and she started itching really quite severely. She has had problems like this with Dilaudid in the past. She has received Benadryl Pepcid for the itching seems to be getting a little better. She was given some fentanyl that did help with the pain did not make the itching any worse. Patient was sent for CT which is nondiagnostic. I suspect her endometriosis is causing her trouble again Patient is still pretty anxious from her itching albeit it seems to be improving she cannot stop shaking. I will give her a milligram of Ativan and see if this helps. Morphine and Dilaudid added to the patient's allergy list. If she needs more pain medication tonight we will try Toradol. 01/07/21 03:40 Patient did receive Toradol the Ativan worked really good for the anxiety she is resting comfortably given the multiple medication doses the patient did receive I will watch her for a while prior to discharge. 01/07/21 06:01 Patient is doing much better at this time we will discharge home. The patient has a history of bariatric procedure namely the gastric sleeve. This is somewhat problematic with using nonsteroidal anti-inflammatory medications. I discussed this in detail with the patient and she uses ibuprofen 600 mg without any trouble. Her insurance company does not like Naprosyn but does approve of flurbiprofen so I gave her prescription for flurbiprofen 100 mg twice daily #30. The patient voices understanding with the potential problems with this medication and agrees to stop it immediately at the first sign of any sort of stomach upset. Departure - Departure Time of Disposition: 06:02 Disposition: Home, Self-Care 01 Clinical Impression: Endometriosis Abdominal pain Qualifiers: Abdominal location: lower abdomen, unspecified Qualified Code(s): R10.30 - Lower abdominal pain, unspecified - Discharge Information Referrals: Samira Brink, VALENTÍN [Primary Care Provider] - Forms: ED Department Discharge Additional Instructions: Return to the emergency room with any questions problems or worsening symptoms. Follow-up with your loftsman as soon as possible. I sent a prescription for flurbiprofen to [facility] up by [place]. This went over electronically. Take this twice daily with food. As we discussed this is a higher risk medication with your history of the gastric sleeve. However we do not have any reasonable oral pain medication options at this time. If you develop any sort of stomach upset stop this medication immediately. Sepsis Event Note (ED) - Evaluation Sepsis Screening Result: No Definite Risk - Focused Exam Vital Signs: Vital Signs Temp Pulse Resp BP Pulse Ox 01/07/21 04:00 56 L 12 99/46 L 97 01/07/21 02:13 91 152/95 H 89 L 01/07/21 00:29 110/78 100 01/06/21 22:09 36.3 C 67 16 144/91 H 100 - My Orders Last 24 Hours: My Active Orders 01/06/21 23:00 Sodium Chloride 0.9% [Normal Saline] 1,000 ml IV ASDIRECTED 01/06/21 23:44 Abdomen Pelvis w Cont [CT] Stat 01/07/21 00:00 CHLAMYDIA AND GONORRHEA BY TMA Stat - Assessment/Plan Last 24 Hours: My Active Orders 01/06/21 23:00 Sodium Chloride 0.9% [Normal Saline] 1,000 ml IV ASDIRECTED 01/06/21 23:44 Abdomen Pelvis w Cont [CT] Stat 01/07/21 00:00 CHLAMYDIA AND GONORRHEA BY TMA Stat
[2021-01-07] MEDS ORDERED: Ondansetron 4 MG/2 ML SDV IVPUSH ONE (00:13)
[2021-01-07] MEDS ORDERED: Morphine 2 MG/ML SYRINGE IVPUSH ONE ×2 (00:13→01:06)
[2021-01-07] MEDS ORDERED: Famotidine 20 MG/2 ML SDV IVPUSH ONE ×2 (00:16→01:56)
[2021-01-07] MEDS ORDERED: Ondansetron 4 MG/2 ML SDV ONE (00:16)
[2021-01-07] MEDS ORDERED: Morphine 2 MG/ML SYRINGE ONE (00:17)
[2021-01-07] MEDS ORDERED: Famotidine 20 MG/2 ML SDV ONE (00:17)
[2021-01-07] MEDS ORDERED: Iopamidol 612 MG/ML 100 ML Bottle IVPUSH ONE (00:39)
[2021-01-07] MEDS ORDERED: Sodium Chloride 0.9% 10 ML SDV FLUSH ONE (00:39)
[2021-01-07] MEDS ORDERED: diphenhydrAMINE 50 MG/ML SDV IVPUSH ONE (01:36)
[2021-01-07] MEDS ORDERED: fentaNYL 100 MCG/2 ML SDV ONE (02:03)
[2021-01-07] MEDS ORDERED: fentaNYL 100 MCG/2 ML SDV IVPUSH ONE (02:03)
[2021-01-07] MEDS ORDERED: LORazepam 2 MG/ML SDV IVPUSH ONE (02:23)
[2021-01-07] MEDS ORDERED: Ketorolac 15 MG/ML SDV IVPUSH ONE ×2 (02:52→03:54)
[2021-01-07] MEDS ORDERED: Ketorolac 15 MG/ML SDV ONE (02:53)
[2021-01-07] MEDS ORDERED: Metoclopramide 10 MG/2 ML SDV IVPUSH ONE (03:54)
--- NOTE | 2021-01-07 07:30 | CT ---
CT abdomen and pelvis Technique: Multiple axial sections were obtained from above the dome of the diaphragm inferiorly through the pubic symphysis. Intravenous contrast was utilized. No oral contrast has been given. Delayed images were also obtained through the bladder. Reconstructed coronal and sagittal images were also obtained. Comparison: Prior CT abdomen and pelvis exam of 05/18/20. Findings: Bilateral breast prostheses are noted. Visualized lung bases show nothing acute. Liver contains no focal parenchymal abnormality. Surgical clips are seen from prior cholecystectomy. Spleen size is normal. Adrenal glands show no nodule. Kidneys show symmetric contrast enhancement without hydronephrosis or mass. Delayed images show contrast within the right ureter and within the bladder. Abdominal aorta shows no aneurysm. No retroperitoneal adenopathy or mesenteric abnormalities are seen. Surgical clips are noted at the base of the cecum. No pelvic mass or adenopathy is appreciated. There is evidence of prior hysterectomy. Very slight degenerative change is scattered within the spine. Impression: 1. Previous surgery as described above. 2. Nothing acute is appreciated on CT study of the abdomen and pelvis. 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
[2021-01-09 11:47] LABS: C.TRACHOMATIS BY TMA Negative (Negative); N.GONORRHOEAE BY TMA Negative (Negative)
== END 2021-01-07 06:50 | disposition home or self-care (01) ==
LOC: JD.ED 21:46
DX: N80.9 Endometriosis, unspecified (principal); E66.9 Obesity, unspecified; Z68.28 Body mass index [BMI] 28.0-28.9, adult; Z88.5 Allergy status to narcotic agent
CPT/HCPCS: 36415; 74177; 80053; 81003; 83690; 85025; 87210; 87491; 87591; 87808; 96374; 96375; 96376; 99284; J1200; J1885; J2060; J2270; J2405; J2765; J3010; J3490; J7030; Q9967